=== PATIENT | female | born 1995 | race American Indian/Alaskan Native ===

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

== ENCOUNTER 2017-03-22 19:56 | Emergency (ER) | payer MEDICAID ==
[2017-03-22 20:42] VITALS: BP 129/76
[2017-03-22] MEDS ORDERED: Tetracaine HCl/PF 0.5% 4 ML Bottle EYELF ONE (21:39)
[2017-03-22] MEDS ORDERED: Fluorescein 1 MG Ophth Strip EYELF ONE (21:39)
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
== END 2017-03-23 01:07 ==
LOC: DL.ED 19:56
DX: S05.32XA Ocular laceration without prolapse or loss of intraocular tissue, left eye, initial encounter (principal); H11.32 Conjunctival hemorrhage, left eye; F17.210 Nicotine dependence, cigarettes, uncomplicated; Z88.6 Allergy status to analgesic agent; X95.8XXA Assault by other firearm discharge, initial encounter
CPT/HCPCS: 70480; 99285; A9270

== ENCOUNTER 2017-05-05 19:52 | Emergency (ER) | payer MEDICAID ==
[2017-05-05 20:08] VITALS: BP 124/88
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
[2017-05-05] MEDS ORDERED: Tetracaine HCl/PF 0.5% 4 ML Bottle EYELF ONE (20:52)
[2017-05-05] MEDS ORDERED: Fluorescein 1 MG Ophth Strip EYELF ONE (20:52)
== END 2017-05-05 22:13 | disposition home or self-care (01) ==
LOC: DL.ED 19:52
DX: S05.0 Injury of conjunctiva and corneal abrasion without foreign body (principal); W34.00XS Accidental discharge from unspecified firearms or gun, sequela; F17.210 Nicotine dependence, cigarettes, uncomplicated; Z88.6 Allergy status to analgesic agent
CPT/HCPCS: 99283; A9270

== ENCOUNTER 2017-05-24 18:19 | Emergency (ER) | payer MEDICAID | END 2017-05-24 19:15 | disposition left against medical advice (07) | LOC: DL.ED 18:19 | DX: Z53.21 Procedure and treatment not carried out due to patient leaving prior to being seen by health care provider (principal) ==

== ENCOUNTER 2017-08-25 20:13 | Emergency (ER) | payer MEDICAID ==
[2017-08-25 20:27] VITALS: BP 129/68
== END 2017-08-25 20:39 | disposition left against medical advice (07) ==
LOC: DL.ED 20:13
DX: Z53.21 Procedure and treatment not carried out due to patient leaving prior to being seen by health care provider (principal)

== ENCOUNTER 2017-09-10 09:35 | Emergency (ER) | payer MEDICAID | END 2017-09-10 12:26 | disposition left against medical advice (07) | LOC: DL.ED 09:35 | DX: Z53.21 Procedure and treatment not carried out due to patient leaving prior to being seen by health care provider (principal) ==

== ENCOUNTER 2019-01-13 06:58 | Emergency (ER) | payer MEDICAID ==
[2019-01-13 07:10] VITALS: BP 129/83; PULSE 75
[2019-01-13] MEDS ORDERED: Ketorolac 30 MG/ML SDV IM ONE (08:53)
[2019-01-13] MEDS ORDERED: Acetaminophen 500 MG Tab PO ONE (09:41)
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
== END 2019-01-13 10:20 | disposition home or self-care (01) ==
LOC: DL.ED 06:58
DX: O20.0 Threatened abortion (principal); O99.331 Smoking (tobacco) complicating pregnancy, first trimester; F17.210 Nicotine dependence, cigarettes, uncomplicated; Z88.6 Allergy status to analgesic agent; Z3A.09 9 weeks gestation of pregnancy
CPT/HCPCS: 80305; 81025; 96372; 99283; A9270; J1885

== ENCOUNTER 2019-01-14 04:33 | Emergency (ER) | payer MEDICAID ==
[2019-01-14 04:46] VITALS: BP 98/71; PULSE 146
[2019-01-14] MEDS ORDERED: Sodium Chloride 0.9% 1,000 ML IV ONE (05:00)
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
[2019-01-14 05:24] LABS: ANION GAP 19.1; CHLORIDE,CL 103 mmol/L (101-111); SODIUM,NA 136 mmol/L (135-145)
[2019-01-14] MEDS ORDERED: Acetaminophen/HYDROcodone 325-10 MG Tab PO ONE (06:25)
[2019-01-14] MEDS ORDERED: metroNIDAZOLE 250 MG Tab PO ONE (06:25)
[2019-01-14] MEDS ORDERED: Doxycycline 100 MG Cap PO ONE (06:25)
--- NOTE | 2019-01-14 15:04 | OR ---
DATE: 01/14/2019 LOCATION: [facility] Emergency Room, [facility]. PREPROCEDURE DIAGNOSIS: This is an individual who presented to the emergency room in the midst of a miscarriage. PROCEDURE: Removal of all products of conception. PROCEDURE IN DETAIL: The patient had been seen that evening in the emergency room with an inevitable AB. The products of conception were hanging from the vagina. The ER doctor did try to remove them, but was having difficulty, therefore, called me. I did place the patient in the stirrups. After consent, I did use a ring forceps and teased out all that was retrieved from the vagina, then placed a speculum, and the gestational sac was evident right there. I did grasp that with the ring forceps and the remaining products of conception were removed without any difficulty and all sent to pathology. After removing that, the bleeding did slow significantly. The uterus was mildly tender afterwards, therefore, I did have the emergency room doctor discharge her with doxycycline and Flagyl for 1 week, and I will follow up on these products of conception. This was the patient's first and has ended in a miscarriage. [facility] /[id number] SHERMAN
== END 2019-01-14 06:41 | disposition home or self-care (01) ==
LOC: DL.ED 04:33
DX: O03.9 Complete or unspecified spontaneous abortion without complication (principal); F17.210 Nicotine dependence, cigarettes, uncomplicated; Z88.6 Allergy status to analgesic agent
CPT/HCPCS: 36415; 80053; 80320; 84702; 85025; 86140; 96360; 99284; A9270; J7030; G0480

== ENCOUNTER 2019-05-06 11:06 | Emergency (ER) | payer MEDICAID ==
[2019-05-06 11:16] VITALS: BP 113/55; PULSE 84
[2019-05-06 12:08] LABS: ANION GAP 12.1; CHLORIDE,CL 105 mmol/L (101-111); SODIUM,NA 136 mmol/L (135-145)
[2019-05-06] MEDS ORDERED: Bisacodyl 10 MG Supp RECTAL ONE (12:48)
[2019-05-06] MEDS ORDERED: Lactulose Soln 10 GM/15 ML 30 ML UD Cup PO ONE (12:48)
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
== END 2019-05-06 13:01 | disposition home or self-care (01) ==
LOC: DL.ED 11:06
DX: K59.09 Other constipation (principal); F50.89 Other specified eating disorder; F17.210 Nicotine dependence, cigarettes, uncomplicated; Z88.6 Allergy status to analgesic agent
CPT/HCPCS: 36415; 74019; 80053; 81001; 81025; 85025; 87086; 87088; 87186; 99284; A9270

== ENCOUNTER 2019-11-04 12:37 | Emergency (ER) | payer SELFPAY ==
[2019-11-04 13:02] VITALS: BP 108/74; PULSE 90
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
[2019-11-04 14:02] LABS: ANION GAP 11.5 mEq/L (7-13)
== END 2019-11-04 14:42 | disposition left against medical advice (07) ==
LOC: DL.ED 12:37
DX: O20.9 Hemorrhage in early pregnancy, unspecified (principal); O99.331 Smoking (tobacco) complicating pregnancy, first trimester; F17.210 Nicotine dependence, cigarettes, uncomplicated; Z88.6 Allergy status to analgesic agent; Z3A.01 Less than 8 weeks gestation of pregnancy
CPT/HCPCS: 36415; 80053; 81001; 81025; 84702; 85025; 87086; 87088; 87186; 99284

== ENCOUNTER 2019-12-15 23:50 | Emergency (ER) | payer SELFPAY ==
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
[2019-12-16] MEDS ORDERED: Ondansetron 4 MG/2 ML SDV IVPUSH ONE
[2019-12-16] MEDS ORDERED: Sodium Chloride 0.9% 1,000 ML IV ONE
[2019-12-16 00:17] VITALS: BP 112/89; PULSE 88
[2019-12-16 00:22] LABS: ANION GAP 13.6 mEq/L (7-13); CHLORIDE,CL 99 mmol/L (98-107); SODIUM,NA 137 mmol/L (136-145)
[2019-12-16] MEDS ORDERED: metroNIDAZOLE 250 MG Tab PO ONE (01:25)
[2019-12-16] MEDS ORDERED: Sulfamethoxazole/Trimethoprim 800-160 MG Tab PO ONE (01:25)
== END 2019-12-16 01:35 | disposition home or self-care (01) ==
LOC: DL.ED 23:50
DX: A59.9 Trichomoniasis, unspecified (principal); N30.00 Acute cystitis without hematuria; Z88.6 Allergy status to analgesic agent
CPT/HCPCS: 36415; 80053; 80305; 81001; 81025; 82150; 83690; 85025; 96374; 99284; A9270; J2405; J7030

== ENCOUNTER 2020-05-23 22:52 | Emergency (ER) | payer MEDICAID | END 2020-05-24 00:01 | disposition left against medical advice (07) | LOC: DL.ED 22:52 | DX: Z53.21 Procedure and treatment not carried out due to patient leaving prior to being seen by health care provider (principal) ==

== ENCOUNTER 2020-05-25 22:47 | Emergency (ER) | payer MEDICAID | END 2020-05-25 23:25 | disposition left against medical advice (07) | LOC: DL.ED 22:47 | DX: Z53.21 Procedure and treatment not carried out due to patient leaving prior to being seen by health care provider (principal) ==

== ENCOUNTER 2020-05-26 07:36 | Emergency (ER) | payer MEDICAID ==
[2020-05-26 07:52] VITALS: BP 128/88; PULSE 111
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
[2020-05-26] MEDS: Lidocaine 1% 30 ML SDV INJECT ONE (08:06)
== END 2020-05-26 08:27 | disposition home or self-care (01) ==
LOC: DL.ED 07:36
DX: K03.81 Cracked tooth (principal); K02.9 Dental caries, unspecified; Z88.6 Allergy status to analgesic agent
CPT/HCPCS: 64400; 99282; J2001

== ENCOUNTER 2021-01-19 15:30 | Inpatient (IN) | payer MEDICAID ==
[2021-01-19] MEDS ORDERED: Labetalol 20 MG/4 ML Syringe IVPUSH ONE ×2 (16:13→16:15)
[2021-01-19] MEDS ORDERED: Magnesium Sulfate/Water 4 GM in Premix Bag 1 BAG IV ONE (16:15)
[2021-01-19] MEDS: Magnesium Sulfate/Water 20 GM/500 ML BAG IV SCH (17:06)
[2021-01-19 17:15] LABS: AMPHETAMINES,URINE POSITIVE (NEGATIVE); BARBITURATES,URINE NEGATIVE (NEGATIVE); BENZODIAZEPINE,URINE NEGATIVE (NEGATIVE); MDMA (ECSTASY), URINE NEGATIVE (NEGATIVE); METHADONE,URINE NEGATIVE (NEGATIVE); METHAMPHETAMINES,URINE POSITIVE (NEGATIVE); OPIATES,URINE NEGATIVE (NEGATIVE); OXYCODONE,URINE NEGATIVE (NEGATIVE); PHENCYCLIDINE,URINE NEGATIVE (NEGATIVE); TCA,URINE NEGATIVE (NEGATIVE)
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
[2021-01-19] MEDS ORDERED: Misoprostol 25 MCG (1/4 of 100 MCG) Tab VAG ONE (18:49)
[2021-01-19] MEDS ORDERED: Promethazine 25 MG/ML SDV IM PRN (18:51)
[2021-01-19] MEDS ORDERED: Naloxone 2 MG/2 ML Syringe IVPUSH PRN (18:51)
[2021-01-19] MEDS ORDERED: Ondansetron 4 MG/2 ML SDV IVPUSH PRN (18:51)
[2021-01-19] MEDS ORDERED: ePHEDrine 50 MG/ML SDV IVPUSH PRN (18:51)
[2021-01-19] MEDS ORDERED: Sodium Chloride 0.9% 10 ML Syringe FLUSH PRN (18:53)
[2021-01-19] MEDS ORDERED: Acetaminophen 325 MG Tab PO PRN (18:53)
[2021-01-19] MEDS ORDERED: Lactated Ringers 500 ML IV SCH ×2 (19:00)
[2021-01-19] MEDS: Misoprostol 25 MCG (1/4 of 100 MCG) Tab VAG PRN (23:45)
[2021-01-20] MEDS: Labetalol 20 MG/4 ML Syringe IV PRN ×3 (00:40→05:36)
[2021-01-20] MEDS: Lactated Ringers 1,000 ML IV SCH ×3 (00:43→15:58)
[2021-01-20] MEDS: Magnesium Sulfate/Water 20 GM/500 ML BAG IV SCH ×3 (02:21→20:56)
[2021-01-20] MEDS: Misoprostol 25 MCG (1/4 of 100 MCG) Tab VAG PRN (03:50)
[2021-01-20] MEDS ORDERED: hydrALAZINE 20 MG/ML SDV ONE (06:20)
[2021-01-20] MEDS ORDERED: hydrALAZINE 20 MG/ML SDV IVPUSH ONE (06:23)
[2021-01-20] MEDS ORDERED: Labetalol 20 MG/4 ML Syringe IVPUSH ONE (07:09)
--- NOTE | 2021-01-20 07:21 | PCM.PN ---
<Rhianna Montenegro - Last Filed: 01/20/21 08:30> - General Info Date of Service: 01/20/21 Admission Dx/Problem (Free Text): Patient admitted 01/19/21 from clinic for elevated blood pressures and limited care. Diagnosed with pre-eclampsia and started on magnesium sulfate. She has required multiple escalating doses of labetalol and 1 dose hydralazine. Currently BP management with labetalol 200mg TID, labetalol 40mg x 1, magnesium sulfate. Patient denies chest pain, shortness of breath or headache. No hyperreflexia. Patient is starting to feel her contractions more frequently. No leakage of fluid or gush of blood from vaginal area. Good movement. Functional Status: Reports: Pain Controlled, Ambulating, Urinating - Review of Systems General: Reports: No Symptoms HEENT: Reports: No Symptoms Pulmonary: Reports: No Symptoms Cardiovascular: Reports: No Symptoms Gastrointestinal: Reports: No Symptoms Genitourinary: Reports: No Symptoms Musculoskeletal: Reports: No Symptoms Skin: Reports: No Symptoms Neurological: Reports: No Symptoms Psychiatric: Reports: No Symptoms - Patient Data Vitals - Most Recent: Last Vital Signs Temp 97.6 F 01/20/21 07:00 Pulse 83 01/20/21 07:00 Resp 16 01/20/21 07:00 BP 153/104 H 01/20/21 07:00 Pulse Ox Weight - Most Recent: 84.822 kg I&O - Last 24 Hours: Intake & Output 01/19/21 01/20/21 01/20/21 22:59 06:59 14:59 Output Total 200 1200 Balance -200 -1200 Lab Results Last 24 Hours: Laboratory Results - last 24 hr 01/19/21 01/19/21 01/19/21 Range/Units 16:15 16:25 16:25 WBC 8.4 (5.0-10.0) 10^3/uL RBC 4.55 (4.2-5.4) 10^6/uL Hgb 9.9 L (12.0-16.0) g/dL Hct 31.2 L (37.0-47.0) % MCV 68.6 L D (80-100) fL MCH 21.8 L (27.0-34.0) pg MCHC 31.7 L (33.0-35.0) g/dL Plt Count 367 D (150-450) 10^3/uL BUN 16 (7-18) mg/dL Creatinine 0.75 (0.55-1.02) mg/dL Est Cr Clr Drug Dosing TNP Estimated GFR (MDRD) > 60 Uric Acid 3.7 (2.6-6.0) mg/dL Magnesium (1.8-2.4) mg/dL AST 36 (15-37) U/L ALT 43 (14-59) U/L Lactate Dehydrogenase 190 (81-234) U/L Urine Color (YELLOW) Urine Appearance (CLEAR) Urine pH (5.0-9.0) Ur Specific [place] (1.005-1.030) Urine Protein (NEGATIVE) Urine Glucose (UA) (NEGATIVE) Urine Ketones (NEGATIVE) Urine Occult Blood (NEGATIVE) Urine Nitrite (NEGATIVE) Urine Bilirubin (NEGATIVE) Urine Urobilinogen (0.2-1.0) mg/dL Ur Leukocyte Esterase (NEGATIVE) Ur Random Creatinine (No establ ref range) mg/dL U Random Total Protein (0.0-11.9) mg/dL Protein/Creatinin Ratio Urine Opiates Screen (NEGATIVE) Ur Oxycodone Screen (NEGATIVE) Urine Methadone Screen (NEGATIVE) Ur Barbiturates Screen (NEGATIVE) U Tricyclic Antidepress (NEGATIVE) Ur Phencyclidine Scrn (NEGATIVE) Ur Amphetamine Screen (NEGATIVE) U Methamphetamines Scrn (NEGATIVE) Urine MDMA Screen (NEGATIVE) U Benzodiazepines Scrn (NEGATIVE) Urine Cocaine Screen (NEGATIVE) U Marijuana (THC) Screen (NEGATIVE) HIV-1 Antibody (NONREACTIVE) HIV-2 Antibody (NONREACTIVE) HIV P24 Antigen (NONREACTIVE) SARS-CoV-2 RNA (YARED) Positive H (NEGATIVE) Blood Type Gel Antibody Screen 01/19/21 01/19/21 01/19/21 Range/Units 16:25 16:25 17:00 WBC (5.0-10.0) 10^3/uL RBC (4.2-5.4) 10^6/uL Hgb (12.0-16.0) g/dL Hct (37.0-47.0) % MCV (80-100) fL MCH (27.0-34.0) pg MCHC (33.0-35.0) g/dL Plt Count (150-450) 10^3/uL BUN (7-18) mg/dL Creatinine (0.55-1.02) mg/dL Est Cr Clr Drug Dosing Estimated GFR (MDRD) Uric Acid (2.6-6.0) mg/dL Magnesium (1.8-2.4) mg/dL AST (15-37) U/L ALT (14-59) U/L Lactate Dehydrogenase (81-234) U/L Urine Color Dark yellow (YELLOW) Urine Appearance Turbid (CLEAR) Urine pH 6.5 (5.0-9.0) Ur Specific [place] >= 1.030 (1.005-1.030) Urine Protein >=300 H (NEGATIVE) Urine Glucose (UA) Negative (NEGATIVE) Urine Ketones Negative (NEGATIVE) Urine Occult Blood Large H (NEGATIVE) Urine Nitrite Negative (NEGATIVE) Urine Bilirubin Negative (NEGATIVE) Urine Urobilinogen 1.0 (0.2-1.0) mg/dL Ur Leukocyte Esterase Trace H (NEGATIVE) Ur Random Creatinine (No establ ref range) mg/dL U Random Total Protein (0.0-11.9) mg/dL Protein/Creatinin Ratio Urine Opiates Screen (NEGATIVE) Ur Oxycodone Screen (NEGATIVE) Urine Methadone Screen (NEGATIVE) Ur Barbiturates Screen (NEGATIVE) U Tricyclic Antidepress (NEGATIVE) Ur Phencyclidine Scrn (NEGATIVE) Ur Amphetamine Screen (NEGATIVE) U Methamphetamines Scrn (NEGATIVE) Urine MDMA Screen (NEGATIVE) U Benzodiazepines Scrn (NEGATIVE) Urine Cocaine Screen (NEGATIVE) U Marijuana (THC) Screen (NEGATIVE) HIV-1 Antibody Non-reactive (NONREACTIVE) HIV-2 Antibody Non-reactive (NONREACTIVE) HIV P24 Antigen Non-reactive (NONREACTIVE) SARS-CoV-2 RNA (YARED) (NEGATIVE) Blood Type O POSITIVE Gel Antibody Screen Negative 01/19/21 01/19/21 01/19/21 Range/Units 17:00 17:00 23:33 WBC (5.0-10.0) 10^3/uL RBC (4.2-5.4) 10^6/uL Hgb (12.0-16.0) g/dL Hct (37.0-47.0) % MCV (80-100) fL MCH (27.0-34.0) pg MCHC (33.0-35.0) g/dL Plt Count (150-450) 10^3/uL BUN (7-18) mg/dL Creatinine (0.55-1.02) mg/dL Est Cr Clr Drug Dosing Estimated GFR (MDRD) Uric Acid (2.6-6.0) mg/dL Magnesium 5.5 H (1.8-2.4) mg/dL AST (15-37) U/L ALT (14-59) U/L Lactate Dehydrogenase (81-234) U/L Urine Color (YELLOW) Urine Appearance (CLEAR) Urine pH (5.0-9.0) Ur Specific [place] (1.005-1.030) Urine Protein (NEGATIVE) Urine Glucose (UA) (NEGATIVE) Urine Ketones (NEGATIVE) Urine Occult Blood (NEGATIVE) Urine Nitrite (NEGATIVE) Urine Bilirubin (NEGATIVE) Urine Urobilinogen (0.2-1.0) mg/dL Ur Leukocyte Esterase (NEGATIVE) Ur Random Creatinine 145.97 (No establ ref range) mg/dL U Random Total Protein 710.3 H (0.0-11.9) mg/dL Protein/Creatinin Ratio TNP Urine Opiates Screen Negative (NEGATIVE) Ur Oxycodone Screen Negative (NEGATIVE) Urine Methadone Screen Negative (NEGATIVE) Ur Barbiturates Screen Negative (NEGATIVE) U Tricyclic Antidepress Negative (NEGATIVE) Ur Phencyclidine Scrn Negative (NEGATIVE) Ur Amphetamine Screen Positive H (NEGATIVE) U Methamphetamines Scrn Positive H (NEGATIVE) Urine MDMA Screen Negative (NEGATIVE) U Benzodiazepines Scrn Negative (NEGATIVE) Urine Cocaine Screen Negative (NEGATIVE) U Marijuana (THC) Screen Positive H (NEGATIVE) HIV-1 Antibody (NONREACTIVE) HIV-2 Antibody (NONREACTIVE) HIV P24 Antigen (NONREACTIVE) SARS-CoV-2 RNA (YARED) (NEGATIVE) Blood Type Gel Antibody Screen 01/20/21 Range/Units 05:30 WBC (5.0-10.0) 10^3/uL RBC (4.2-5.4) 10^6/uL Hgb (12.0-16.0) g/dL Hct (37.0-47.0) % MCV (80-100) fL MCH (27.0-34.0) pg MCHC (33.0-35.0) g/dL Plt Count (150-450) 10^3/uL BUN (7-18) mg/dL Creatinine (0.55-1.02) mg/dL Est Cr Clr Drug Dosing Estimated GFR (MDRD) Uric Acid (2.6-6.0) mg/dL Magnesium 6.5 H (1.8-2.4) mg/dL AST (15-37) U/L ALT (14-59) U/L Lactate Dehydrogenase (81-234) U/L Urine Color (YELLOW) Urine Appearance (CLEAR) Urine pH (5.0-9.0) Ur Specific [place] (1.005-1.030) Urine Protein (NEGATIVE) Urine Glucose (UA) (NEGATIVE) Urine Ketones (NEGATIVE) Urine Occult Blood (NEGATIVE) Urine Nitrite (NEGATIVE) Urine Bilirubin (NEGATIVE) Urine Urobilinogen (0.2-1.0) mg/dL Ur Leukocyte Esterase (NEGATIVE) Ur Random Creatinine (No establ ref range) mg/dL U Random Total Protein (0.0-11.9) mg/dL Protein/Creatinin Ratio Urine Opiates Screen (NEGATIVE) Ur Oxycodone Screen (NEGATIVE) Urine Methadone Screen (NEGATIVE) Ur Barbiturates Screen (NEGATIVE) U Tricyclic Antidepress (NEGATIVE) Ur Phencyclidine Scrn (NEGATIVE) Ur Amphetamine Screen (NEGATIVE) U Methamphetamines Scrn (NEGATIVE) Urine MDMA Screen (NEGATIVE) U Benzodiazepines Scrn (NEGATIVE) Urine Cocaine Screen (NEGATIVE) U Marijuana (THC) Screen (NEGATIVE) HIV-1 Antibody (NONREACTIVE) HIV-2 Antibody (NONREACTIVE) HIV P24 Antigen (NONREACTIVE) SARS-CoV-2 RNA (YARED) (NEGATIVE) Blood Type Gel Antibody Screen Med Orders - Current: Current Medications Acetaminophen (Acetaminophen 325 Mg Tab) 650 mg PO Q4H PRN PRN Reason: Pain/Fever Last Admin: 01/20/21 00:43 Dose: 650 mg Documented by: Ephedrine Sulfate (Ephedrine 50 Mg/Ml Sdv) 5 mg IVPUSH Q5M PRN PRN Reason: See Label Comments Magnesium Sulfate (Magnesium Sulfate In Water 20 Gm/500 Ml) 20 gm in 500 mls @ 50 mls/hr IV ASDIRECTED [facility] Last Admin: 01/20/21 02:21 Dose: 50 mls/hr Documented by: Lactated Ringer's (Ringers, Lactated) 500 mls @ 999 mls/hr IV SEECOMMENT [facility] Lactated Ringer's (Ringers, Lactated) 500 mls @ 999 mls/hr IV .BOLUS JEMAL Lactated Ringer's (Ringers, Lactated) 1,000 mls @ 125 mls/hr IV ASDIRECTED JEMAL Last Admin: 01/20/21 00:43 Dose: 125 mls/hr Documented by: Labetalol HCl (Labetalol 20 Mg/4 Ml Syringe) 0 mg IV ASDIRECTED PRN PRN Reason: HIGH BLOOD PRESSURE Last Admin: 01/20/21 05:36 Dose: 20 mg Documented by: Labetalol HCl (Labetalol 20 Mg/4 Ml Syringe) 40 mg IVPUSH ONETIME ONE Stop: 01/20/21 07:10 Labetalol HCl (Labetalol 100 Mg Tab) 200 mg PO TID JEMAL Misoprostol (Misoprostol 25 Mcg (1/4 Of 100 Mcg) Tab) 25 mcg VAG Q4H PRN PRN Reason: Other Last Admin: 01/20/21 03:50 Dose: 25 mcg Documented by: Naloxone HCl (Naloxone 2 Mg/2 Ml Syringe) 0.1 mg IVPUSH SEECOMMENT PRN PRN Reason: Respiratory Depression Ondansetron HCl (Ondansetron 4 Mg/2 Ml Sdv) 4 mg IVPUSH Q4H PRN PRN Reason: Nausea/Vomiting Promethazine HCl (Promethazine 25 Mg/Ml Sdv) 12.5 mg IM Q6H PRN PRN Reason: Nausea/Vomiting Sodium Chloride (Sodium Chloride 0.9% 10 Ml Syringe) 10 ml FLUSH ASDIRECTED PRN PRN Reason: Keep Vein Open Discontinued Medications Hydralazine HCl (Hydralazine 20 Mg/Ml Sdv) Confirm Administered Dose 20 mg .ROUTE .STK-MED ONE Stop: 01/20/21 06:21 Last Admin: 01/20/21 06:42 Dose: Not Given Documented by: Hydralazine HCl (Hydralazine 20 Mg/Ml Sdv) 5 mg IVPUSH ONETIME ONE Stop: 01/20/21 06:24 Last Admin: 01/20/21 06:25 Dose: 5 mg Documented by: Magnesium Sulfate 4 gm/ Premix 100 mls @ 300 mls/hr IV BOLUS ONE Stop: 01/19/21 16:34 Last Admin: 01/19/21 16:46 Dose: 300 mls/hr Documented by: Labetalol HCl (Labetalol 20 Mg/4 Ml Syringe) 10 mg IVPUSH ONETIME ONE Stop: 01/19/21 16:14 Last Admin: 01/19/21 17:24 Dose: Not Given Documented by: Labetalol HCl (Labetalol 20 Mg/4 Ml Syringe) 10 mg IVPUSH ONETIME ONE Stop: 01/19/21 16:16 Last Admin: 01/19/21 16:37 Dose: 10 mg Documented by: Misoprostol (Misoprostol 25 Mcg (1/4 Of 100 Mcg) Tab) 25 mcg VAG ONETIME ONE Stop: 01/19/21 18:50 Last Admin: 01/19/21 19:47 Dose: 25 mcg Documented by: - Exam General: Alert, Oriented Neck: Supple Lungs: Normal Respiratory Effort (Female) Exam: Normal External Exam, Heart Tones, Vaginal Bleeding Back Exam: Normal Inspection, Full Range of Motion Extremities: Normal Inspection, Normal Range of Motion Skin: Warm, Dry, Intact Neurological: No New Focal Deficit Psy/Mental Status: Normal Affect, Normal Mood - Patient Data Lab Results Last 24 hrs: Laboratory Results - last 24 hr 01/19/21 01/19/21 01/19/21 Range/Units 16:15 16:25 16:25 WBC 8.4 (5.0-10.0) 10^3/uL RBC 4.55 (4.2-5.4) 10^6/uL Hgb 9.9 L (12.0-16.0) g/dL Hct 31.2 L (37.0-47.0) % MCV 68.6 L D (80-100) fL MCH 21.8 L (27.0-34.0) pg MCHC 31.7 L (33.0-35.0) g/dL Plt Count 367 D (150-450) 10^3/uL BUN 16 (7-18) mg/dL Creatinine 0.75 (0.55-1.02) mg/dL Est Cr Clr Drug Dosing TNP Estimated GFR (MDRD) > 60 Uric Acid 3.7 (2.6-6.0) mg/dL Magnesium (1.8-2.4) mg/dL AST 36 (15-37) U/L ALT 43 (14-59) U/L Lactate Dehydrogenase 190 (81-234) U/L Urine Color (YELLOW) Urine Appearance (CLEAR) Urine pH (5.0-9.0) Ur Specific [place] (1.005-1.030) Urine Protein (NEGATIVE) Urine Glucose (UA) (NEGATIVE) Urine Ketones (NEGATIVE) Urine Occult Blood (NEGATIVE) Urine Nitrite (NEGATIVE) Urine Bilirubin (NEGATIVE) Urine Urobilinogen (0.2-1.0) mg/dL Ur Leukocyte Esterase (NEGATIVE) Ur Random Creatinine (No establ ref range) mg/dL U Random Total Protein (0.0-11.9) mg/dL Protein/Creatinin Ratio Urine Opiates Screen (NEGATIVE) Ur Oxycodone Screen (NEGATIVE) Urine Methadone Screen (NEGATIVE) Ur Barbiturates Screen (NEGATIVE) U Tricyclic Antidepress (NEGATIVE) Ur Phencyclidine Scrn (NEGATIVE) Ur Amphetamine Screen (NEGATIVE) U Methamphetamines Scrn (NEGATIVE) Urine MDMA Screen (NEGATIVE) U Benzodiazepines Scrn (NEGATIVE) Urine Cocaine Screen (NEGATIVE) U Marijuana (THC) Screen (NEGATIVE) HIV-1 Antibody (NONREACTIVE) HIV-2 Antibody (NONREACTIVE) HIV P24 Antigen (NONREACTIVE) SARS-CoV-2 RNA (YARED) Positive H (NEGATIVE) Blood Type Gel Antibody Screen 01/19/21 01/19/21 01/19/21 Range/Units 16:25 16:25 17:00 WBC (5.0-10.0) 10^3/uL RBC (4.2-5.4) 10^6/uL Hgb (12.0-16.0) g/dL Hct (37.0-47.0) % MCV (80-100) fL MCH (27.0-34.0) pg MCHC (33.0-35.0) g/dL Plt Count (150-450) 10^3/uL BUN (7-18) mg/dL Creatinine (0.55-1.02) mg/dL Est Cr Clr Drug Dosing Estimated GFR (MDRD) Uric Acid (2.6-6.0) mg/dL Magnesium (1.8-2.4) mg/dL AST (15-37) U/L ALT (14-59) U/L Lactate Dehydrogenase (81-234) U/L Urine Color Dark yellow (YELLOW) Urine Appearance Turbid (CLEAR) Urine pH 6.5 (5.0-9.0) Ur Specific [place] >= 1.030 (1.005-1.030) Urine Protein >=300 H (NEGATIVE) Urine Glucose (UA) Negative (NEGATIVE) Urine Ketones Negative (NEGATIVE) Urine Occult Blood Large H (NEGATIVE) Urine Nitrite Negative (NEGATIVE) Urine Bilirubin Negative (NEGATIVE) Urine Urobilinogen 1.0 (0.2-1.0) mg/dL Ur Leukocyte Esterase Trace H (NEGATIVE) Ur Random Creatinine (No establ ref range) mg/dL U Random Total Protein (0.0-11.9) mg/dL Protein/Creatinin Ratio Urine Opiates Screen (NEGATIVE) Ur Oxycodone Screen (NEGATIVE) Urine Methadone Screen (NEGATIVE) Ur Barbiturates Screen (NEGATIVE) U Tricyclic Antidepress (NEGATIVE) Ur Phencyclidine Scrn (NEGATIVE) Ur Amphetamine Screen (NEGATIVE) U Methamphetamines Scrn (NEGATIVE) Urine MDMA Screen (NEGATIVE) U Benzodiazepines Scrn (NEGATIVE) Urine Cocaine Screen (NEGATIVE) U Marijuana (THC) Screen (NEGATIVE) HIV-1 Antibody Non-reactive (NONREACTIVE) HIV-2 Antibody Non-reactive (NONREACTIVE) HIV P24 Antigen Non-reactive (NONREACTIVE) SARS-CoV-2 RNA (YARED) (NEGATIVE) Blood Type O POSITIVE Gel Antibody Screen Negative 01/19/21 01/19/21 01/19/21 Range/Units 17:00 17:00 23:33 WBC (5.0-10.0) 10^3/uL RBC (4.2-5.4) 10^6/uL Hgb (12.0-16.0) g/dL Hct (37.0-47.0) % MCV (80-100) fL MCH (27.0-34.0) pg MCHC (33.0-35.0) g/dL Plt Count (150-450) 10^3/uL BUN (7-18) mg/dL Creatinine (0.55-1.02) mg/dL Est Cr Clr Drug Dosing Estimated GFR (MDRD) Uric Acid (2.6-6.0) mg/dL Magnesium 5.5 H (1.8-2.4) mg/dL AST (15-37) U/L ALT (14-59) U/L Lactate Dehydrogenase (81-234) U/L Urine Color (YELLOW) Urine Appearance (CLEAR) Urine pH (5.0-9.0) Ur Specific [place] (1.005-1.030) Urine Protein (NEGATIVE) Urine Glucose (UA) (NEGATIVE) Urine Ketones (NEGATIVE) Urine Occult Blood (NEGATIVE) Urine Nitrite (NEGATIVE) Urine Bilirubin (NEGATIVE) Urine Urobilinogen (0.2-1.0) mg/dL Ur Leukocyte Esterase (NEGATIVE) Ur Random Creatinine 145.97 (No establ ref range) mg/dL U Random Total Protein 710.3 H (0.0-11.9) mg/dL Protein/Creatinin Ratio TNP Urine Opiates Screen Negative (NEGATIVE) Ur Oxycodone Screen Negative (NEGATIVE) Urine Methadone Screen Negative (NEGATIVE) Ur Barbiturates Screen Negative (NEGATIVE) U Tricyclic Antidepress Negative (NEGATIVE) Ur Phencyclidine Scrn Negative (NEGATIVE) Ur Amphetamine Screen Positive H (NEGATIVE) U Methamphetamines Scrn Positive H (NEGATIVE) Urine MDMA Screen Negative (NEGATIVE) U Benzodiazepines Scrn Negative (NEGATIVE) Urine Cocaine Screen Negative (NEGATIVE) U Marijuana (THC) Screen Positive H (NEGATIVE) HIV-1 Antibody (NONREACTIVE) HIV-2 Antibody (NONREACTIVE) HIV P24 Antigen (NONREACTIVE) SARS-CoV-2 RNA (YARED) (NEGATIVE) Blood Type Gel Antibody Screen 01/20/21 Range/Units 05:30 WBC (5.0-10.0) 10^3/uL RBC (4.2-5.4) 10^6/uL Hgb (12.0-16.0) g/dL Hct (37.0-47.0) % MCV (80-100) fL MCH (27.0-34.0) pg MCHC (33.0-35.0) g/dL Plt Count (150-450) 10^3/uL BUN (7-18) mg/dL Creatinine (0.55-1.02) mg/dL Est Cr Clr Drug Dosing Estimated GFR (MDRD) Uric Acid (2.6-6.0) mg/dL Magnesium 6.5 H (1.8-2.4) mg/dL AST (15-37) U/L ALT (14-59) U/L Lactate Dehydrogenase (81-234) U/L Urine Color (YELLOW) Urine Appearance (CLEAR) Urine pH (5.0-9.0) Ur Specific [place] (1.005-1.030) Urine Protein (NEGATIVE) Urine Glucose (UA) (NEGATIVE) Urine Ketones (NEGATIVE) Urine Occult Blood (NEGATIVE) Urine Nitrite (NEGATIVE) Urine Bilirubin (NEGATIVE) Urine Urobilinogen (0.2-1.0) mg/dL Ur Leukocyte Esterase (NEGATIVE) Ur Random Creatinine (No establ ref range) mg/dL U Random Total Protein (0.0-11.9) mg/dL Protein/Creatinin Ratio Urine Opiates Screen (NEGATIVE) Ur Oxycodone Screen (NEGATIVE) Urine Methadone Screen (NEGATIVE) Ur Barbiturates Screen (NEGATIVE) U Tricyclic Antidepress (NEGATIVE) Ur Phencyclidine Scrn (NEGATIVE) Ur Amphetamine Screen (NEGATIVE) U Methamphetamines Scrn (NEGATIVE) Urine MDMA Screen (NEGATIVE) U Benzodiazepines Scrn (NEGATIVE) Urine Cocaine Screen (NEGATIVE) U Marijuana (THC) Screen (NEGATIVE) HIV-1 Antibody (NONREACTIVE) HIV-2 Antibody (NONREACTIVE) HIV P24 Antigen (NONREACTIVE) SARS-CoV-2 RNA (YARED) (NEGATIVE) Blood Type Gel Antibody Screen Result Diagrams: 01/19/21 16:25 01/19/21 16:25 Sepsis Event Note - Evaluation Sepsis Screening Result: No Definite Risk - Focused Exam Vital Signs: Vital Signs Temp Pulse Resp BP 01/20/21 07:00 97.6 F 83 16 153/104 H 01/20/21 06:45 73 16 151/100 H 01/20/21 06:30 73 16 150/102 H 01/20/21 06:15 69 16 155/98 H 01/20/21 06:00 72 16 150/105 H 01/20/21 05:45 80 16 151/100 H 01/20/21 05:30 73 16 156/104 H 01/20/21 05:00 76 16 155/103 H 01/20/21 04:30 85 16 149/96 H 01/20/21 04:00 97.7 F 82 16 139/92 H 01/20/21 03:30 71 16 147/93 H 01/20/21 03:00 75 16 154/100 H 01/20/21 02:30 80 16 147/87 H 01/20/21 02:15 97.3 F 74 16 148/92 H 01/20/21 02:00 75 16 157/100 H 01/20/21 01:30 78 16 184/109 H 01/20/21 01:00 70 16 153/99 H 01/20/21 00:30 76 16 160/103 H 01/20/21 00:00 77 16 151/103 H 01/19/21 23:40 97.3 F 76 16 153/98 H 01/19/21 23:00 77 16 154/102 H 01/19/21 22:30 77 16 155/97 H 01/19/21 22:00 84 16 157/103 H 01/19/21 21:30 73 16 147/91 H 01/19/21 21:00 78 16 154/105 H 01/19/21 20:30 75 16 149/93 H 01/19/21 20:00 71 16 142/90 H 01/19/21 19:45 97.6 F 79 16 137/78 01/19/21 19:30 72 16 144/89 H - Problem List & Annotations (1) Pre-eclampsia affecting , antepartum SNOMED Code(s): 174597888, 750240141 Code(s): O14.90 - UNSPECIFIED PRE-ECLAMPSIA, UNSPECIFIED TRIMESTER Status: Acute Priority: High Current Visit: Yes Onset Date: ~01/19/21 Annotation/Comment:: -Blood pressures >170/100 on admission -PIH labs WNL; Urine P/CR too high to calculate -Magnesium sulfate IV infusing; bolus and maintenance dosing order; monitor for magnesium toxicity -Strict I&Os -Blood pressure control with IV labetalol and hydralazine -Labetalol 10mg IV given without improvement of pressures; will start labetalol 200mg oral TID -Monitor for signs of eclampsia -Induced with misoprostol x 3 doses, now starting oxytocin. -Intrathecal requested by patient. (2) Poor patient attendance of care SNOMED Code(s): 217165777 Code(s): O09.30 - SUPRVSN OF PREG W INSUFFICIENT ANTENAT CARE, UNSP TRIMESTER Status: Acute Current Visit: Yes Annotation/Comment:: -Complete OB labs ordered; noted anemia to 9.9 and O+ blood type -Unable to find documentation of reported visit in [place]; presume no care (3) GBS screening not performed SNOMED Code(s): 144683110 Code(s): KXV3143 - Status: Acute Current Visit: Yes Annotation/Comment:: -Start penicillin given unknown GBS status -Patient denied history of penicillin allergy -Start penicillin now (4) COVID-19 SNOMED Code(s): 203575871 Code(s): U07.1 - COVID-19 Status: Acute Current Visit: Yes Annotation/Comment:: -Currently asymptomatic -Contact and airborne precautions -Monitor for symptoms (5) Drug use affecting , antepartum SNOMED Code(s): 42097496, 224343472 Code(s): O99.320 - DRUG USE COMPLICATING , UNSPECIFIED TRIMESTER Status: Acute Current Visit: Yes Annotation/Comment:: -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 -Monitor for withdrawal -HIV negative - Problem List Review Problem List Initiated/Reviewed/Updated: Yes - My Orders Last 24 Hours: My Active Orders 01/19/21 18:51 Communication Order [RC] PER UNIT ROUTINE Communication Order [RC] PER UNIT ROUTINE Heart Rate [RC] Click to Edit Up With Assistance [RC] ASDIRECTED Verify Patient Consent Obtain [RC] ASDIRECTED Naloxone [Narcan] 0.1 mg IVPUSH SEECOMMENT PRN Ondansetron [Zofran] 4 mg IVPUSH Q4H PRN Promethazine [Phenergan] 12.5 mg IM Q6H PRN ePHEDrine [ePHEDrine sulfate] 5 mg IVPUSH Q5M PRN Blood Pressure [OM.PC] Routine 01/19/21 18:53 Acetaminophen [TylenoL] 650 mg PO Q4H PRN Sodium Chloride 0.9% [Saline Flush] 10 ml FLUSH ASDIRECTED PRN 01/19/21 18:56 Communication Order [RC] ASDIRECTED Communication Order [RC] ASDIRECTED Communication Order [RC] ASDIRECTED Communication Order [RC] ASDIRECTED Communication Order [RC] ASDIRECTED Notify Provider [RC] PRN Notify Provider [RC] STAT Up ad Lucie [RC] PER UNIT ROUTINE Vaginal Exam [RC] PRN Vital Signs [RC] PER UNIT ROUTINE Peripheral IV Insertion Adult [OM.PC] Urgent 01/19/21 18:58 Peripheral IV Care [RC] 06,14,22 01/19/21 19:00 Lactated Ringers [Ringers, Lactated] 500 ml IV .BOLUS Lactated Ringers [Ringers, Lactated] 500 ml IV SEECOMMENT 01/20/21 07:09 Labetalol [Normodyne] 40 mg IVPUSH ONETIME ONE 01/20/21 09:00 Labetalol [Normodyne] 200 mg PO TID <Betty Coppola - Last Filed: 01/21/21 16:43> - Patient Data Vitals - Most Recent: Last Vital Signs Temp 97.8 F 01/21/21 12:00 Pulse 78 01/21/21 12:00 Resp 16 01/21/21 12:00 BP 132/90 01/21/21 12:00 Pulse Ox 99 01/21/21 08:00 I&O - Last 24 Hours: Intake & Output 01/21/21 01/21/21 01/21/21 06:59 14:59 22:59 Output Total 2200 1200 Balance -2200 -1200 Lab Results Last 24 Hours: Laboratory Results - last 24 hr 01/19/21 01/19/21 01/19/21 Range/Units 16:25 16:25 17:00 WBC (5.0-10.0) 10^3/uL RBC (4.2-5.4) 10^6/uL Hgb (12.0-16.0) g/dL Hct (37.0-47.0) % MCV (80-100) fL MCH (27.0-34.0) pg MCHC (33.0-35.0) g/dL Plt Count (150-450) 10^3/uL Magnesium (1.8-2.4) mg/dL RPR Non-reac (Non-Reac) Chlamydia/GC Source Urine C.trachomatis RNA (TMA) Positive H (Negative) N.gonorrhoeae RNA (TMA) Negative (Negative) Rubella Immune Status N/a Rubella IgG Antibody Equivocal IU/mL 01/20/21 01/20/21 01/21/21 Range/Units 17:35 23:33 06:17 WBC 12.4 H (5.0-10.0) 10^3/uL RBC 3.93 L (4.2-5.4) 10^6/uL Hgb 8.5 L (12.0-16.0) g/dL Hct 27.2 L (37.0-47.0) % MCV 69.2 L (80-100) fL MCH 21.6 L (27.0-34.0) pg MCHC 31.3 L (33.0-35.0) g/dL Plt Count 321 (150-450) 10^3/uL Magnesium 7.0 H 7.3 H (1.8-2.4) mg/dL RPR (Non-Reac) Chlamydia/GC Source C.trachomatis RNA (TMA) (Negative) N.gonorrhoeae RNA (TMA) (Negative) Rubella Immune Status Rubella IgG Antibody IU/mL 01/21/21 Range/Units 06:17 WBC (5.0-10.0) 10^3/uL RBC (4.2-5.4) 10^6/uL Hgb (12.0-16.0) g/dL Hct (37.0-47.0) % MCV (80-100) fL MCH (27.0-34.0) pg MCHC (33.0-35.0) g/dL Plt Count (150-450) 10^3/uL Magnesium 7.3 H (1.8-2.4) mg/dL RPR (Non-Reac) Chlamydia/GC Source C.trachomatis RNA (TMA) (Negative) N.gonorrhoeae RNA (TMA) (Negative) Rubella Immune Status Rubella IgG Antibody IU/mL [place] Results Last 24 Hours: Microbiology 01/19/21 18:37 Group B Streptococcus Culture - Preliminary Vaginal/Rectal NEGATIVE STREP GROUP B Med Orders - Current: Current Medications Acetaminophen (Acetaminophen 325 Mg Tab) 650 mg PO Q6H PRN PRN Reason: Mild Pain (1-3) or Fever Carboprost Tromethamine (Carboprost Tromethamine 250 Mcg/1 Ml Amp) 250 mcg IM ASDIRECTED PRN PRN Reason: Excessive vaginal bleeding Diphenhydramine HCl (Diphenhydramine 50 Mg/Ml Sdv) 25 mg IVPUSH Q6H PRN PRN Reason: Itching or Nausea Docusate Sodium (Docusate Sodium 100 Mg Cap) 100 mg PO Q12H PRN PRN Reason: Constipation Last Admin: 01/21/21 09:57 Dose: 100 mg Documented by: Ephedrine Sulfate (Ephedrine 50 Mg/Ml Sdv) 5 mg IVPUSH Q5M PRN PRN Reason: See Label Comments Ferrous Sulfate (Ferrous Sulfate 325 Mg Tab) 325 mg PO BIDMEALS [facility] Magnesium Sulfate (Magnesium Sulfate In Water 20 Gm/500 Ml) 20 gm in 500 mls @ 50 mls/hr IV ASDIRECTED [facility] Last Admin: 01/21/21 07:07 Dose: 50 mls/hr Documented by: Lactated Ringer's (Ringers, Lactated) 500 mls @ 999 mls/hr IV SEECOMMENT [facility] Lactated Ringer's (Ringers, Lactated) 1,000 mls @ 125 mls/hr [facility]RECTED [facility] [facility] Last Admin: 01/20/21 15:58 Dose: 125 mls/hr Documented by: Oxytocin/Sodium Chloride (Pitocin In Ns 30 Unit/500 Ml) 30 unit in 500 mls @ 2 mls/hr IV TITRATE [facility]; Protocol Last Titration: 01/20/21 14:10 Dose: 0 munits/min, 0 mls/hr Documented by: Tranexamic Acid 1,000 mg/ (Sodium Chloride) 110 mls @ 660 mls/hr IV ONETIME PRN PRN Reason: Bleeding Lactated Ringer's (Ringers, Lactated) 1,000 mls @ 500 mls/hr IV .BOLUS [facility] Lidocaine HCl (Lidocaine 1% 30 Ml Sdv) 30 ml INJECT ASDIRECTED PRN PRN Reason: Perineal Repair Methylergonovine Maleate (Methylergonovine 0.2 Mg Tab) 0.2 mg PO ONETIME PRN PRN Reason: Excessive vaginal bleeding Metronidazole (Metronidazole 250 Mg Tab) 500 mg PO Q12HR [facility] Misoprostol (Misoprostol 400 Mcg (4 X 100 Mcg Tab)) 800 mcg RECTAL ASDIRECTED PRN PRN Reason: Hemorrhage Nalbuphine HCl (Nalbuphine 10 Mg/1 Ml Vial) 20 mg IM ONETIME PRN PRN Reason: Pain Naloxone HCl (Naloxone 2 Mg/2 Ml Syringe) 0.1 mg IVPUSH SEECOMMENT PRN PRN Reason: Respiratory Depression Ondansetron HCl (Ondansetron 4 Mg/2 Ml Sdv) 4 mg IVPUSH Q4H PRN PRN Reason: Nausea/Vomiting Oxycodone/Acetaminophen (Acetaminophen/Oxycodone 325-5 Mg Tab) 1 tab PO Q4H PRN PRN Reason: Pain (moderate 4-6) Last Admin: 01/21/21 09:57 Dose: 1 tab Documented by: Oxycodone/Acetaminophen (Acetaminophen/Oxycodone 325-5 Mg Tab) 2 tab PO Q4H PRN PRN Reason: Pain (moderate 4-6) Oxytocin (Oxytocin 10 Units/1 Ml Sdv) 10 unit IM ONETIME PRN PRN Reason: Excessive vaginal bleeding Prenat Multivit/[place]/Iron/Folic Ac ( Multivitamin With Calcium/Folic Acid/Iron Tab) 1 each PO DAILY [facility] Last Admin: 01/21/21 09:07 Dose: 1 each Documented by: Promethazine HCl (Promethazine 25 Mg/Ml Sdv) 12.5 mg IM Q6H PRN PRN Reason: Nausea/Vomiting Simethicone (Simethicone 80 Mg Tab.Chew) 160 mg PO QID [facility] Last Admin: 01/21/21 13:45 Dose: 160 mg Documented by: Sodium Chloride (Sodium Chloride 0.9% 10 Ml Syringe) 10 ml FLUSH ASDIRECTED PRN PRN Reason: Keep Vein Open Discontinued Medications Acetaminophen (Acetaminophen 325 Mg Tab) 650 mg PO Q4H PRN PRN Reason: Pain/Fever Last Admin: 01/20/21 00:43 Dose: 650 mg Documented by: Azithromycin (Azithromycin 250 Mg Tab) 1,000 mg PO ONETIME ONE Stop: 01/21/21 14:58 Citric Acid/Sodium Citrate (Citric Acid/Sodium Citrate Solution 30 Ml Cup) 30 ml PO ONETIME ONE Stop: 01/20/21 09:58 Last Admin: 01/20/21 11:33 Dose: Not Given Documented by: Dexamethasone (Dexamethasone 4 Mg/Ml Sdv) 8 mg IV .STK-MED ONE Stop: 01/20/21 11:01 Ephedrine Sulfate (Ephedrine 50 Mg/Ml Sdv) 25 mg IV .STK-MED ONE Stop: 01/20/21 11:01 Fentanyl (Fentanyl 100 Mcg/2 Ml Sdv) 100 mcg IV .STK-MED ONE Stop: 01/20/21 11:01 Hydralazine HCl (Hydralazine 20 Mg/Ml Sdv) Confirm Administered Dose 20 mg .ROUTE .STK-MED ONE Stop: 01/20/21 06:21 Last Admin: 01/20/21 06:42 Dose: Not Given Documented by: Hydralazine HCl (Hydralazine 20 Mg/Ml Sdv) 5 mg IVPUSH ONETIME ONE Stop: 01/20/21 06:24 Last Admin: 01/20/21 06:25 Dose: 5 mg Documented by: Magnesium Sulfate 4 gm/ Premix 100 mls @ 300 mls/hr IV BOLUS ONE Stop: 01/19/21 16:34 Last Admin: 01/19/21 16:46 Dose: 300 mls/hr Documented by: Lactated Ringer's (Ringers, Lactated) 500 mls @ 999 mls/hr IV .BOLUS [facility] Penicillin G Potassium 3 (millunits/ Sodium Chloride) 100 mls @ 200 mls/hr IV Q4H [facility] Penicillin G Potassium 5 (millunits/ Sodium Chloride) 100 mls @ 200 mls/hr IV ONETIME ONE Stop: 01/20/21 09:29 Last Admin: 01/20/21 09:26 Dose: 200 mls/hr Documented by: Cefazolin Sodium/Dextrose (Ancef 2 Gm/50 Ml) Confirm Administered Dose 50 mls @ as directed .ROUTE .STK-MED ONE Stop: 01/20/21 09:48 Oxytocin/Sodium Chloride (Pitocin In Ns 30 Unit/500 Ml) Confirm Administered Dose 60 unit in 1,000 mls @ as directed .ROUTE .STK-MED ONE Stop: 01/20/21 09:48 Cefazolin Sodium/Dextrose 2 gm (/ Premix) 50 mls @ 100 mls/hr IV ONETIME ONE Stop: 01/20/21 11:29 Last Admin: 01/20/21 10:15 Dose: 100 mls/hr Documented by: Tranexamic Acid 1,000 mg/ (Sodium Chloride) 110 mls @ as directed IV .STK-MED ONE Stop: 01/20/21 11:01 Lactated Ringer's (Ringers, Lactated) 1,000 mls @ as directed IV .STK-MED ONE Stop: 01/20/21 11:01 Oxytocin/Sodium Chloride (Pitocin In Ns 30 Unit/500 Ml) 30 unit in 500 mls @ as directed IV .STK-MED ONE Stop: 01/21/21 12:26 Ketorolac Tromethamine (Ketorolac 30 Mg/Ml Sdv) 15 mg IVPUSH Q6H [facility] Stop: 01/21/21 05:31 Last Admin: 01/21/21 05:49 Dose: 15 mg Documented by: Labetalol HCl (Labetalol 20 Mg/4 Ml Syringe) 10 mg IVPUSH ONETIME ONE Stop: 01/19/21 16:14 Last Admin: 01/19/21 17:24 Dose: Not Given Documented by: Labetalol HCl (Labetalol 20 Mg/4 Ml Syringe) 10 mg IVPUSH ONETIME ONE Stop: 01/19/21 16:16 Last Admin: 01/19/21 16:37 Dose: 10 mg Documented by: Labetalol HCl (Labetalol 20 Mg/4 Ml Syringe) 0 mg IV ASDIRECTED PRN PRN Reason: HIGH BLOOD PRESSURE Last Admin: 01/20/21 05:36 Dose: 20 mg Documented by: Labetalol HCl (Labetalol 20 Mg/4 Ml Syringe) 40 mg IVPUSH ONETIME ONE Stop: 01/20/21 07:10 Last Admin: 01/20/21 07:18 Dose: 40 mg Documented by: Labetalol HCl (Labetalol 100 Mg Tab) 200 mg PO TID [facility] Last Admin: 01/20/21 08:38 Dose: 200 mg Documented by: Labetalol HCl (Labetalol 100 Mg Tab) 200 mg PO TID [facility] Last Admin: 01/21/21 15:10 Dose: Not Given Documented by: Measles/Mumps/Rubella Vaccine Live (Measles, Mumps & Rubella Vaccine 0.5 Ml Sdv) 0.5 ml SUBCUT .ONCE ONE Stop: 01/21/21 09:44 Last Admin: 01/21/21 12:24 Dose: 0.5 ml Documented by: Misoprostol (Misoprostol 25 Mcg (1/4 Of 100 Mcg) Tab) 25 mcg VAG ONETIME ONE Stop: 01/19/21 18:50 Last Admin: 01/19/21 19:47 Dose: 25 mcg Documented by: Misoprostol (Misoprostol 25 Mcg (1/4 Of 100 Mcg) Tab) 25 mcg VAG Q4H PRN PRN Reason: Other Last Admin: 01/20/21 03:50 Dose: 25 mcg Documented by: Morphine Sulfate (Morphine Pf 10 Mg/10 Ml Sdv) 0.2 mg .XX .STK-MED ONE Stop: 01/20/21 11:01 Naloxone HCl (Naloxone 2 Mg/2 Ml Syringe) 0.1 mg IVPUSH SEECOMMENT PRN PRN Reason: Respiratory Depression Ondansetron HCl (Ondansetron 4 Mg/2 Ml Sdv) 4 mg IV .STK-MED ONE Stop: 01/20/21 11:01 - Patient Data Lab Results Last 24 hrs: Laboratory Results - last 24 hr 01/19/21 01/19/21 01/19/21 Range/Units 16:25 16:25 17:00 WBC (5.0-10.0) 10^3/uL RBC (4.2-5.4) 10^6/uL Hgb (12.0-16.0) g/dL Hct (37.0-47.0) % MCV (80-100) fL MCH (27.0-34.0) pg MCHC (33.0-35.0) g/dL Plt Count (150-450) 10^3/uL Magnesium (1.8-2.4) mg/dL RPR Non-reac (Non-Reac) Chlamydia/GC Source Urine C.trachomatis RNA (TMA) Positive H (Negative) N.gonorrhoeae RNA (TMA) Negative (Negative) Rubella Immune Status N/a Rubella IgG Antibody Equivocal IU/mL 01/20/21 01/20/21 01/21/21 Range/Units 17:35 23:33 06:17 WBC 12.4 H (5.0-10.0) 10^3/uL RBC 3.93 L (4.2-5.4) 10^6/uL Hgb 8.5 L (12.0-16.0) g/dL Hct 27.2 L (37.0-47.0) % MCV 69.2 L (80-100) fL MCH 21.6 L (27.0-34.0) pg MCHC 31.3 L (33.0-35.0) g/dL Plt Count 321 (150-450) 10^3/uL Magnesium 7.0 H 7.3 H (1.8-2.4) mg/dL RPR (Non-Reac) Chlamydia/GC Source C.trachomatis RNA (TMA) (Negative) N.gonorrhoeae RNA (TMA) (Negative) Rubella Immune Status Rubella IgG Antibody IU/mL 01/21/21 Range/Units 06:17 WBC (5.0-10.0) 10^3/uL RBC (4.2-5.4) 10^6/uL Hgb (12.0-16.0) g/dL Hct (37.0-47.0) % MCV (80-100) fL MCH (27.0-34.0) pg MCHC (33.0-35.0) g/dL Plt Count (150-450) 10^3/uL Magnesium 7.3 H (1.8-2.4) mg/dL RPR (Non-Reac) Chlamydia/GC Source C.trachomatis RNA (TMA) (Negative) N.gonorrhoeae RNA (TMA) (Negative) Rubella Immune Status Rubella IgG Antibody IU/mL Result Diagrams: 01/21/21 06:17 01/19/21 16:25 [place] Results Last 24 hrs: Microbiology 01/19/21 18:37 Group B Streptococcus Culture - Preliminary Vaginal/Rectal NEGATIVE STREP GROUP B Sepsis Event Note - Focused Exam Vital Signs: Vital Signs Temp Pulse Pulse Resp BP BP BP 01/21/21 12:00 97.8 F 78 16 132/90 01/21/21 11:00 78 128/92 H 01/21/21 10:00 84 138/89 01/21/21 09:07 80 137/89 01/21/21 09:00 82 137/80 01/21/21 08:00 98.5 F 80 18 128/90 01/21/21 07:00 75 16 133/91 H 01/21/21 05:54 70 16 131/87 01/21/21 05:00 68 16 130/89 Pulse Ox 01/21/21 12:00 01/21/21 11:00 01/21/21 10:00 01/21/21 09:07 01/21/21 09:00 01/21/21 08:00 99 01/21/21 07:00 01/21/21 05:54 01/21/21 05:00 - My Orders Last 24 Hours: My Active Orders 01/20/21 Dinner Nothing Per Oral Diet [DIET] 01/21/21 09:00 Vit with Ca/FA/Iron [ Plus Iron] 1 each PO DAILY 01/21/21 18:00 Ferrous Sulfate 325 mg PO BIDMEALS 09/29/21 21:00 metroNIDAZOLE 500 mg PO Q12HR - Plan Plan:: Agree with resident's assessment and plan. Betty Coppola MD
[2021-01-20] MEDS ORDERED: Misoprostol 400 MCG (4 X 100 MCG TAB) RECTAL PRN (08:33)
[2021-01-20] MEDS ORDERED: Tranexamic Acid 1,000 MG in Sodium Chloride 0.9% 100 ML IV PRN ×2 (08:33→09:57)
[2021-01-20] MEDS ORDERED: Lidocaine 1% 30 ML SDV INJECT PRN (08:33)
[2021-01-20] MEDS: Oxytocin/Normal Saline 30 UNIT/500 ML BAG IV SCH ×2 (08:37→11:23)
[2021-01-20] MEDS ORDERED: Oxytocin/Normal Saline 30 UNIT/500 ML BAG IV SCH ×2 (08:45→10:00)
[2021-01-20] MEDS ORDERED: Labetalol 100 MG Tab PO SCH (09:00)
[2021-01-20] MEDS ORDERED: Penicillin G Potassium 5 MILLUNITS in Sodium Chloride 0.9% 100 ML IV ONE ×4 (09:00)
[2021-01-20] MEDS ORDERED: Nalbuphine 10 MG/1 ML Vial IM PRN (09:03)
[2021-01-20] MEDS ORDERED: Oxytocin/Normal Saline 60 UNIT/1,000 ML BAG ONE (09:47)
[2021-01-20] MEDS ORDERED: Sodium Chloride 0.9% 10 ML Syringe FLUSH PRN (09:57)
[2021-01-20] MEDS ORDERED: Carboprost Tromethamine 250 MCG/1 ML Amp IM PRN (09:57)
[2021-01-20] MEDS ORDERED: Citric Acid/Sodium Citrate Solution 30 ML Cup PO ONE (09:57)
[2021-01-20] MEDS ORDERED: Methylergonovine 0.2 MG Tab PO PRN (09:57)
[2021-01-20] MEDS ORDERED: Oxytocin 10 Units/1 ML SDV IM PRN (09:57)
[2021-01-20] MEDS ORDERED: Lactated Ringers 1,000 ML IV SCH ×3 (10:00→11:15)
[2021-01-20] MEDS ORDERED: Lactated Ringers 1,000 ML IV ONE (11:00)
[2021-01-20] MEDS ORDERED: Morphine PF 10 MG/10 ML SDV ONE (11:00)
[2021-01-20] MEDS ORDERED: ceFAZolin 2 GM in Premix Bag 1 BAG IV ONE (11:00)
[2021-01-20] MEDS ORDERED: fentaNYL 100 MCG/2 ML SDV IV ONE (11:00)
[2021-01-20] MEDS ORDERED: ePHEDrine 50 MG/ML SDV IV ONE (11:00)
[2021-01-20] MEDS ORDERED: Ondansetron 4 MG/2 ML SDV IV ONE (11:00)
[2021-01-20] MEDS ORDERED: Tranexamic Acid 1,000 MG in Sodium Chloride 0.9% 100 ML IV ONE (11:00)
[2021-01-20] MEDS ORDERED: Dexamethasone 4 MG/ML SDV IV ONE (11:00)
[2021-01-20] MEDS ORDERED: Naloxone 2 MG/2 ML Syringe IVPUSH PRN (11:13)
[2021-01-20] MEDS ORDERED: diphenhydrAMINE 50 MG/ML SDV IVPUSH PRN (11:13)
[2021-01-20] MEDS ORDERED: Acetaminophen 325 MG Tab PO PRN (11:13)
[2021-01-20] MEDS ORDERED: Penicillin G Potassium 3 MILLUNITS in Sodium Chloride 0.9% 100 ML IV SCH (13:00)
[2021-01-20] MEDS: Simethicone 80 MG Tab.Chew PO SCH ×3 (15:48→20:53)
[2021-01-20] MEDS: Labetalol 100 MG Tab PO SCH ×2 (15:59→20:52)
[2021-01-20] MEDS: Ketorolac 30 MG/ML SDV IVPUSH SCH ×2 (17:28→23:22)
[2021-01-20] MEDS: Docusate Sodium 100 MG Cap PO PRN (20:52)
[2021-01-21] MEDS: Ketorolac 30 MG/ML SDV IVPUSH SCH (05:49)
[2021-01-21] MEDS: Magnesium Sulfate/Water 20 GM/500 ML BAG IV SCH (07:07)
[2021-01-21] MEDS: Simethicone 80 MG Tab.Chew PO SCH ×4 (09:07→20:06)
[2021-01-21] MEDS: Prenatal Multivitamin with Calcium/Folic Acid/Iron Tab PO SCH (09:07)
[2021-01-21] MEDS: Labetalol 100 MG Tab PO SCH ×2 (09:07→15:10)
[2021-01-21] MEDS ORDERED: Measles, Mumps & Rubella Vaccine 0.5 ML SDV SUBCUT ONE (09:43)
[2021-01-21] MEDS: Acetaminophen/oxyCODONE 325-5 MG Tab PO PRN ×4 (09:57→23:57)
[2021-01-21] MEDS: Docusate Sodium 100 MG Cap PO PRN ×2 (09:57→20:06)
[2021-01-21 11:47] LABS: C.TRACHOMATIS BY TMA Positive (Negative); N.GONORRHOEAE BY TMA Negative (Negative)
[2021-01-21] MEDS ORDERED: Oxytocin/Normal Saline 30 UNIT/500 ML BAG IV ONE (12:25)
[2021-01-21] MEDS ORDERED: Azithromycin 250 MG Tab PO ONE (14:57)
--- NOTE | 2021-01-21 16:54 | PCM.SN.2 ---
- Free Text/Narrative Note: 01/20/21 Patient is being induced for severe preeclampsia. Currently on Magnesium and blood pressures are controlled with IV labetalol and hydralazine and oral labetalol. Patient had 3 doses of cytotec and is now 2.5 cm dilated. She was started on pitocin and given Nubain. Baby's heart rate maintained in the 140s but with minimal variability, no accels or decels. Patient nehemiah every 2-5 minutes. Her vaginal bleeding increased and she had softball size amount on pad at time of evaluation. She also had sudden increase in abdominal pain. Her blood pressures also started to rise now 150s/100s. Given diagnoses of severe preeclampsia, elevated blood pressures, increased vaginal bleeding and pain, placental abruption highly suspected. Cat 2 tracing did not improve with interventions. Decision to proceed with made, Dr. Morel consulted for . Discussed with patient at bedside who is in agreement with plan. Betty Coppola MD Time Documentation
[2021-01-21] MEDS: Ferrous Sulfate 325 MG Tab PO SCH (17:03)
[2021-01-21] MEDS: metroNIDAZOLE 250 MG Tab PO SCH (20:06)
--- NOTE | 2021-01-21 20:09 | PCM.PNPP ---
- General Info Date of Service: 01/21/21 - Review of Systems General: Reports: No Symptoms HEENT: Reports: No Symptoms Pulmonary: Reports: No Symptoms Cardiovascular: Reports: No Symptoms Gastrointestinal: Reports: Other (incision site pain) Musculoskeletal: Reports: No Symptoms Skin: Reports: No Symptoms Neurological: Reports: No Symptoms Psychiatric: Reports: No Symptoms - General Info Date of Service: 01/21/21 - Patient Data Vital Signs - Most Recent: Last Vital Signs Temp 97.7 F 01/21/21 16:00 Pulse 78 01/21/21 16:00 Resp 16 01/21/21 16:00 BP 141/80 H 01/21/21 16:00 Pulse Ox 98 01/21/21 16:00 Weight - Most Recent: 187 lb I&O - Last 24 Hours: Intake & Output 01/21/21 01/21/21 01/21/21 06:59 14:59 22:59 Output Total 2200 1200 500 Balance -2200 -1200 -500 Lab Results - Last 24 Hours: Laboratory Results - last 24 hr 01/19/21 01/19/21 01/19/21 Range/Units 16:25 16:25 17:00 WBC (5.0-10.0) 10^3/uL RBC (4.2-5.4) 10^6/uL Hgb (12.0-16.0) g/dL Hct (37.0-47.0) % MCV (80-100) fL MCH (27.0-34.0) pg MCHC (33.0-35.0) g/dL Plt Count (150-450) 10^3/uL Magnesium (1.8-2.4) mg/dL RPR Non-reac (Non-Reac) Chlamydia/GC Source Urine C.trachomatis RNA (TMA) Positive H (Negative) N.gonorrhoeae RNA (TMA) Negative (Negative) Rubella Immune Status N/a Rubella IgG Antibody Equivocal IU/mL 01/20/21 01/21/21 01/21/21 Range/Units 23:33 06:17 06:17 WBC 12.4 H (5.0-10.0) 10^3/uL RBC 3.93 L (4.2-5.4) 10^6/uL Hgb 8.5 L (12.0-16.0) g/dL Hct 27.2 L (37.0-47.0) % MCV 69.2 L (80-100) fL MCH 21.6 L (27.0-34.0) pg MCHC 31.3 L (33.0-35.0) g/dL Plt Count 321 (150-450) 10^3/uL Magnesium 7.3 H 7.3 H (1.8-2.4) mg/dL RPR (Non-Reac) Chlamydia/GC Source C.trachomatis RNA (TMA) (Negative) N.gonorrhoeae RNA (TMA) (Negative) Rubella Immune Status Rubella IgG Antibody IU/mL Micro Results - Last 24 Hours: Microbiology 01/19/21 18:37 Group B Streptococcus Culture - Preliminary Vaginal/Rectal NEGATIVE STREP GROUP B Med Orders - Current: Current Medications Acetaminophen (Acetaminophen 325 Mg Tab) 650 mg PO Q6H PRN PRN Reason: Mild Pain (1-3) or Fever Carboprost Tromethamine (Carboprost Tromethamine 250 Mcg/1 Ml Amp) 250 mcg IM ASDIRECTED PRN PRN Reason: Excessive vaginal bleeding Diphenhydramine HCl (Diphenhydramine 50 Mg/Ml Sdv) 25 mg IVPUSH Q6H PRN PRN Reason: Itching or Nausea Docusate Sodium (Docusate Sodium 100 Mg Cap) 100 mg PO Q12H PRN PRN Reason: Constipation Last Admin: 01/21/21 09:57 Dose: 100 mg Documented by: Ephedrine Sulfate (Ephedrine 50 Mg/Ml Sdv) 5 mg IVPUSH Q5M PRN PRN Reason: See Label Comments Ferrous Sulfate (Ferrous Sulfate 325 Mg Tab) 325 mg PO BIDMEALS [facility] Last Admin: 01/21/21 17:03 Dose: 325 mg Documented by: Lactated Ringer's (Ringers, Lactated) 500 mls @ 999 mls/hr IV SEECOMMENT JEMAL Lactated Ringer's (Ringers, Lactated) 1,000 mls @ 125 mls/hr IV ASDIRECTED J[facility]AL Last Admin: 01/20/21 15:58 Dose: 125 mls/hr Documented by: Oxytocin/Sodium Chloride (Pitocin In Ns 30 Unit/500 Ml) 30 unit in 500 mls @ 2 mls/hr IV TITRATE J[facility]; Protocol Last Titration: 01/20/21 14:10 Dose: 0 munits/min, 0 mls/hr Documented by: Tranexamic Acid 1,000 mg/ (Sodium Chloride) 110 mls @ 660 mls/hr IV ONETIME PRN PRN Reason: Bleeding Lactated Ringer's (Ringers, Lactated) 1,000 mls @ 500 mls/hr IV .BOLUS [facility] Lidocaine HCl (Lidocaine 1% 30 Ml Sdv) 30 ml INJECT ASDIRECTED PRN PRN Reason: Perineal Repair Methylergonovine Maleate (Methylergonovine 0.2 Mg Tab) 0.2 mg PO ONETIME PRN PRN Reason: Excessive vaginal bleeding Metronidazole (Metronidazole 250 Mg Tab) 500 mg PO Q12HR [facility] Misoprostol (Misoprostol 400 Mcg (4 X 100 Mcg Tab)) 800 mcg RECTAL ASDIRECTED PRN PRN Reason: Hemorrhage Nalbuphine HCl (Nalbuphine 10 Mg/1 Ml Vial) 20 mg IM ONETIME PRN PRN Reason: Pain Naloxone HCl (Naloxone 2 Mg/2 Ml Syringe) 0.1 mg IVPUSH SEECOMMENT PRN PRN Reason: Respiratory Depression Ondansetron HCl (Ondansetron 4 Mg/2 Ml Sdv) 4 mg IVPUSH Q4H PRN PRN Reason: Nausea/Vomiting Oxycodone/Acetaminophen (Acetaminophen/Oxycodone 325-5 Mg Tab) 1 tab PO Q4H PRN PRN Reason: Pain (moderate 4-6) Last Admin: 01/21/21 16:55 Dose: 1 tab Documented by: Oxycodone/Acetaminophen (Acetaminophen/Oxycodone 325-5 Mg Tab) 2 tab PO Q4H PRN PRN Reason: Pain (moderate 4-6) Oxytocin (Oxytocin 10 Units/1 Ml Sdv) 10 unit IM ONETIME PRN PRN Reason: Excessive vaginal bleeding Prenat Multivit/[place]/Iron/Folic Ac ( Multivitamin With Calcium/Folic Acid/Iron Tab) 1 each PO DAILY [facility] Last Admin: 01/21/21 09:07 Dose: 1 each Documented by: Promethazine HCl (Promethazine 25 Mg/Ml Sdv) 12.5 mg IM Q6H PRN PRN Reason: Nausea/Vomiting Simethicone (Simethicone 80 Mg Tab.Chew) 160 mg PO QID [facility] Last Admin: 01/21/21 16:55 Dose: 160 mg Documented by: Sodium Chloride (Sodium Chloride 0.9% 10 Ml Syringe) 10 ml FLUSH ASDIRECTED PRN PRN Reason: Keep Vein Open Discontinued Medications Acetaminophen (Acetaminophen 325 Mg Tab) 650 mg PO Q4H PRN PRN Reason: Pain/Fever Last Admin: 01/20/21 00:43 Dose: 650 mg Documented by: Azithromycin (Azithromycin 250 Mg Tab) 1,000 mg PO ONETIME ONE Stop: 01/21/21 14:58 Last Admin: 01/21/21 16:54 Dose: 1,000 mg Documented by: Citric Acid/Sodium Citrate (Citric Acid/Sodium Citrate Solution 30 Ml Cup) 30 ml PO ONETIME ONE Stop: 01/20/21 09:58 Last Admin: 01/20/21 11:33 Dose: Not Given Documented by: Dexamethasone (Dexamethasone 4 Mg/Ml Sdv) 8 mg IV .STK-MED ONE Stop: 01/20/21 11:01 Ephedrine Sulfate (Ephedrine 50 Mg/Ml Sdv) 25 mg IV .STK-MED ONE Stop: 01/20/21 11:01 Fentanyl (Fentanyl 100 Mcg/2 Ml Sdv) 100 mcg IV .STK-MED ONE Stop: 01/20/21 11:01 Hydralazine HCl (Hydralazine 20 Mg/Ml Sdv) Confirm Administered Dose 20 mg .ROUTE .STK-MED ONE Stop: 01/20/21 06:21 Last Admin: 01/20/21 06:42 Dose: Not Given Documented by: Hydralazine HCl (Hydralazine 20 Mg/Ml Sdv) 5 mg IVPUSH ONETIME ONE Stop: 01/20/21 06:24 Last Admin: 01/20/21 06:25 Dose: 5 mg Documented by: Magnesium Sulfate 4 gm/ Premix 100 mls @ 300 mls/hr IV BOLUS ONE Stop: 01/19/21 16:34 Last Admin: 01/19/21 16:46 Dose: 300 mls/hr Documented by: Magnesium Sulfate (Magnesium Sulfate In Water 20 Gm/500 Ml) 20 gm in 500 mls @ 50 mls/hr IV ASDIRECTED [facility] Last Admin: 01/21/21 07:07 Dose: 50 mls/hr Documented by: Lactated Ringer's (Ringers, Lactated) 500 mls @ 999 mls/hr IV .BOLUS JEMAL Penicillin G Potassium 3 (millunits/ Sodium Chloride) 100 mls @ 200 mls/hr IV Q4H J[facility] Penicillin G Potassium 5 (millunits/ Sodium Chloride) 100 mls @ 200 mls/hr IV ONETIME ONE Stop: 01/20/21 09:29 Last Admin: 01/20/21 09:26 Dose: 200 mls/hr Documented by: Cefazolin Sodium/Dextrose (Ancef 2 Gm/50 Ml) Confirm Administered Dose 50 mls @ as directed .ROUTE .STK-MED ONE Stop: 01/20/21 09:48 Oxytocin/Sodium Chloride (Pitocin In Ns 30 Unit/500 Ml) Confirm Administered Dose 60 unit in 1,000 mls @ as directed .ROUTE .STK-MED ONE Stop: 01/20/21 09:48 Cefazolin Sodium/Dextrose 2 gm (/ Premix) 50 mls @ 100 mls/hr IV ONETIME ONE Stop: 01/20/21 11:29 Last Admin: 01/20/21 10:15 Dose: 100 mls/hr Documented by: Tranexamic Acid 1,000 mg/ (Sodium Chloride) 110 mls @ as directed IV .STK-MED ONE Stop: 01/20/21 11:01 Lactated Ringer's (Ringers, Lactated) 1,000 mls @ as directed IV .STK-MED ONE Stop: 01/20/21 11:01 Oxytocin/Sodium Chloride (Pitocin In Ns 30 Unit/500 Ml) 30 unit in 500 mls @ as directed IV .STK-MED ONE Stop: 01/21/21 12:26 Ketorolac Tromethamine (Ketorolac 30 Mg/Ml Sdv) 15 mg IVPUSH Q6H [facility] Stop: 01/21/21 05:31 Last Admin: 01/21/21 05:49 Dose: 15 mg Documented by: Labetalol HCl (Labetalol 20 Mg/4 Ml Syringe) 10 mg IVPUSH ONETIME ONE Stop: 01/19/21 16:14 Last Admin: 01/19/21 17:24 Dose: Not Given Documented by: Labetalol HCl (Labetalol 20 Mg/4 Ml Syringe) 10 mg IVPUSH ONETIME ONE Stop: 01/19/21 16:16 Last Admin: 01/19/21 16:37 Dose: 10 mg Documented by: Labetalol HCl (Labetalol 20 Mg/4 Ml Syringe) 0 mg IV ASDIRECTED PRN PRN Reason: HIGH BLOOD PRESSURE Last Admin: 01/20/21 05:36 Dose: 20 mg Documented by: Labetalol HCl (Labetalol 20 Mg/4 Ml Syringe) 40 mg IVPUSH ONETIME ONE Stop: 01/20/21 07:10 Last Admin: 01/20/21 07:18 Dose: 40 mg Documented by: Labetalol HCl (Labetalol 100 Mg Tab) 200 mg PO TID JEM[facility] Last Admin: 01/20/21 08:38 Dose: 200 mg Documented by: Labetalol HCl (Labetalol 100 Mg Tab) 200 mg PO TID [facility] Last Admin: 01/21/21 15:10 Dose: Not Given Documented by: Measles/Mumps/Rubella Vaccine Live (Measles, Mumps & Rubella Vaccine 0.5 Ml Sdv) 0.5 ml SUBCUT .ONCE ONE Stop: 01/21/21 09:44 Last Admin: 01/21/21 12:24 Dose: 0.5 ml Documented by: Misoprostol (Misoprostol 25 Mcg (1/4 Of 100 Mcg) Tab) 25 mcg VAG ONETIME ONE Stop: 01/19/21 18:50 Last Admin: 01/19/21 19:47 Dose: 25 mcg Documented by: Misoprostol (Misoprostol 25 Mcg (1/4 Of 100 Mcg) Tab) 25 mcg VAG Q4H PRN PRN Reason: Other Last Admin: 01/20/21 03:50 Dose: 25 mcg Documented by: Morphine Sulfate (Morphine Pf 10 Mg/10 Ml Sdv) 0.2 mg .XX .STK-MED ONE Stop: 01/20/21 11:01 Naloxone HCl (Naloxone 2 Mg/2 Ml Syringe) 0.1 mg IVPUSH SEECOMMENT PRN PRN Reason: Respiratory Depression Ondansetron HCl (Ondansetron 4 Mg/2 Ml Sdv) 4 mg IV .STK-MED ONE Stop: 01/20/21 11:01 - Infant Interaction Infant Disposition, : to Nursery Infant Interaction: Not Interacting Feeding: Bottle Fed Support Person: Friend - Recovery Exam Fundal Tone: Firm Fundal Level: 1 Fingerbreadths Below Umbilicus Fundal Placement: Midline Lochia Amount: Small Lochia Color: Rubra/Red Perineum Description: Intact, Minimal Bruising/Swelling Episiotomy/Laceration: None Bladder Status: Indwelling Catheter in Place Urinary Elimination: Indwelling Catheter - Exam General: Alert, Oriented HEENT: Other (Right pupil equal round and reactive to light, 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) Neck: Supple Lungs: Clear to Auscultation, Normal Respiratory Effort Cardiovascular: Regular Rate, Regular Rhythm GI/Abdominal Exam: Normal Bowel Sounds Extremities: Normal Inspection Skin: Warm, Dry, Intact Wound/Incisions: Healing Well, Dressing Dry and Intact, No Drainage Neurological: No New Focal Deficit, Strength Equal Bilateral Psy/Mental Status: Alert, Normal Affect, Normal Mood - Problem List & Annotations (1) Pre-eclampsia affecting , antepartum SNOMED Code(s): 859376144, 211334017 Code(s): O14.90 - UNSPECIFIED PRE-ECLAMPSIA, UNSPECIFIED TRIMESTER Status: Acute Priority: High Current Visit: Yes Onset Date: ~01/19/21 Annotation/Comment:: -Blood pressures >170/100 on admission -PIH labs WNL; Urine P/CR too high to calculate -s/p LTCS on 01/20/21 due to vaginal bleeding and placental abruption -Magnesium sulfate IV stopped today -Blood pressures today well-controlled -Strict I&Os -Blood pressure control with IV labetalol and hydralazine -Labetalol 200mg TID -Monitor for signs of eclampsia (2) Poor patient attendance of care SNOMED Code(s): 568682066 Code(s): O09.30 - SUPRVSN OF PREG W INSUFFICIENT ANTENAT CARE, UNSP TRIMESTER Status: Acute Current Visit: Yes Annotation/Comment:: -Complete OB labs ordered; noted anemia to 9.9 and O+ blood type -Unable to find documentation of reported visit in [place]; presume no care (3) GBS screening not performed SNOMED Code(s): 085282666 Code(s): AQY1827 - Status: Acute Current Visit: Yes Annotation/Comment:: -Received penicillin during labor; (4) COVID-19 SNOMED Code(s): 346692330 Code(s): U07.1 - COVID-19 Status: Acute Current Visit: Yes Annotation/Comment:: -Currently asymptomatic -Contact and airborne precautions -Monitor for symptoms (5) Drug use affecting , antepartum SNOMED Code(s): 95925147, 239191486 Code(s): O99.320 - DRUG USE COMPLICATING , UNSPECIFIED TRIMESTER Status: Acute Current Visit: Yes Annotation/Comment:: -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 -Monitor for withdrawal -HIV negative (6) Trichomonas infection SNOMED Code(s): 17771183 Code(s): A59.9 - TRICHOMONIASIS, UNSPECIFIED Status: Acute Current Visit: No Annotation/Comment:: -Metronidazole 500mg BID x 7 days (7) Chlamydia infection SNOMED Code(s): 903263680 Code(s): A74.9 - CHLAMYDIAL INFECTION, UNSPECIFIED Status: Acute Current Visit: Yes Annotation/Comment:: -Treated; azithromycin 1g x 1 dose - Problem List Review Problem List Initiated/Reviewed/Updated: Yes - Plan Plan:: Agree with resident's assessment and plan. Induction of labor for severe preeclampsia, on magnesium. Meth and THC positive. Social work to be consulted. COVID positive Betty Coppola MD
--- NOTE | 2021-01-21 23:13 | PCM.PRNOTE ---
- Free Text/Narrative Note: Section Operative Report Date of Surgery: 01/20/2021 Surgeon: Rachell Morel MD Electron Beam Machine Welder Setter: MD Brianna Contreras MD Pre-Operative Diagnosis: 25-year-old at 39w2d per ultrasound No care Pre-elcampsia intolerance of labor Vaginal bleeding, suspect placental abruption Post-Operative Diagnosis: Same Procedure Performed: Primary low transverse section Anesthesia: Spinal EBL: 800 mL IVF: 1200 mL Drains: Byrnes catheter with 250 mL of urine output Specimens: Umbilical cord for CordStat testing Complications: Adherent placental membranes. Findings: Normal uterus, tubes, and ovaries. Indication and Consent: During labor the heart tracing began to show signs of developing hypoxemia. Conservative measures of oxygen supplementation and position changes did not relieve these findings. Patient also had vaginal bleeding that seemed to be increasing in severity. section was recommended to the patient for wellbeing. The patient understood that the risks of section include, but are not limited to, visceral or vascular injury, infection, blood loss and need for blood transfusion, prolonged hospitalization, and reoperation. The patient stated understanding and desired to proceed. All questions were answered. Procedure in Detail: The patient was taken to the operating room. Byrnes catheter and pneumoboots were placed. Spinal anesthesia was administered. She was then prepped and draped in routine fashion in dorsal supine position with a left dick tilt. Two grams of cefazolin (Ancef) were given for infection prophylaxis. A Pfannenstiel skin incision was made with a scalpel. The incision was carried down to the fascia sharply. The fascia was incised and extended laterally. The superor aspect of the fascia was grasped with Craol clamps; the underlying rectus muscle and pyramidalis was dissected off with sharp and blunt technique. In a similar fashion, the inferior aspect of the fascia was elevated with Carol clamps and the rectus muscle was dissected off. Hemostasis was achieved with the Bovie. The rectus musculature was in the midline down to the le shelton of the pubic symphysis. Pre-peritoneal fatty tissue was bluntly dissected to expose the peritoneum. The peritoneum was found to be free of adherent bowel or bladder tissue and entered bluntly. The peritoneal opening was then extended superiorly and inferiorly to the bladder reflection with good visualization of the bladder. The Harlan retractor was inserted. Intraabdominal survey revealed scant, clear peritoneal fluid and thinned-out lower uterine segment. The vesicouterine peritoneum was opened with a pickup and mets, and the bladder flap was developed. The lower uterine segment was incised with a scalpel. The amniotic sac was ruptured with an Allis clamp and dark red blood mixed with amniotic fluid was noted. The uterine incision was extended bluntly with lateral and upw smiley traction. The fetus was in vertex position. The head was elevated out of the maternal pelvis with special attention paid to avoid using the uterine incision as a fulcrum. Gentle fundal pressure was applied once the head was brought into the incision. The was delivered with minimal difficulty. Bulb suctioning of the infant's nose and mouth was performed on the operative field. The cord was clamped and cut in standard fashion, and the infant was handed over to the awaiting nursery staff. IV oxytocin was initiated to facilitate uterine contractions. The placenta was delivered intact with manual message of the uterine fundus along with gentle cord traction. After removal of the placenta, the inside of the uterus was wiped multiple times with a lap sponge. Small fragments of placental membranes appeared to be adherent to the uterine wall. Dr. Dillon was called to assist at the table. Using several different sized banjo curettes, Dr. Dillon performed gentle curettage fo the uterus until all fragments of placental membranes appeared to be removed. The inside of the uterus was again gently wiped with a lap sponge to assure complete removal of remaining products of conception. The uterine incision was closed with 0 -Vicryl suture in a running locked fashion. A second imbricating layer of 0-Vicryl was also placed. The incision was inspected and hemostasis achieved. The ovaries and tubes were visualized and found to be normal. The uterus, tubes, and ovaries were returned to the abdominal cavity. The blood clots and fluid were wiped out of the abdomen and pelvis with moist laparotomy sponges. The uterine incision was re-inspected along with all other incised surfaces and good hemostasis was confirmed. The Harlan retractor was removed. The peritoneus was then closed using 2-0 Vicyrl. The fascia was then closed with 2-0 looped PDS suture with care not to include any underlying abdominal contents. The skin was closed with 3-0 suture on a Randall needle in a subcuticular fashion. Dressing was applied. Sponge and instrument counts were reported as correct times two. Patient tolerated procedure well and was taken to PACU in stable condition. Rachell Morel MD
[2021-01-22] MEDS ORDERED: Codeine/Promethazine 10-6.25 MG/5 ML Syrup 5 ML UD Cup PO SCH
[2021-01-22] MEDS ORDERED: Labetalol 100 MG Tab PO ONE (04:27)
[2021-01-22] MEDS: Acetaminophen/oxyCODONE 325-5 MG Tab PO PRN ×3 (04:28→20:18)
[2021-01-22] MEDS: Docusate Sodium 100 MG Cap PO PRN ×2 (08:04→20:19)
[2021-01-22] MEDS: Prenatal Multivitamin with Calcium/Folic Acid/Iron Tab PO SCH (08:04)
[2021-01-22] MEDS: metroNIDAZOLE 250 MG Tab PO SCH ×2 (08:04→20:19)
[2021-01-22] MEDS: Ferrous Sulfate 325 MG Tab PO SCH ×2 (08:04→17:45)
[2021-01-22] MEDS: Simethicone 80 MG Tab.Chew PO SCH ×4 (08:04→20:19)
--- NOTE | 2021-01-22 10:07 | PCM.PNPP ---
<Rhianna Montenegro - Last Filed: 01/22/21 10:05> - General Info Date of Service: 01/22/21 Functional Status: Reports: Pain Controlled, Tolerating Diet, Ambulating, Urinating - Review of Systems General: Reports: No Symptoms HEENT: Reports: No Symptoms Pulmonary: Reports: No Symptoms Cardiovascular: Reports: No Symptoms Gastrointestinal: Reports: No Symptoms Genitourinary: Reports: No Symptoms Musculoskeletal: Reports: No Symptoms Skin: Reports: No Symptoms Neurological: Reports: No Symptoms Psychiatric: Reports: No Symptoms - General Info Date of Service: 01/22/21 - Patient Data Vital Signs - Most Recent: Last Vital Signs Temp 99.3 F 01/22/21 08:00 Pulse 85 01/22/21 08:00 Resp 18 01/22/21 08:00 BP 132/75 01/22/21 08:00 Pulse Ox 98 01/21/21 20:08 Weight - Most Recent: 84.822 kg I&O - Last 24 Hours: Intake & Output 01/21/21 01/22/21 01/22/21 22:59 06:59 14:59 Output Total 1000 Balance -1000 Lab Results - Last 24 Hours: Laboratory Results - last 24 hr 01/19/21 01/19/21 Range/Units 16:25 17:00 RPR Non-reac (Non-Reac) Chlamydia/GC Source Urine C.trachomatis RNA (TMA) Positive H (Negative) N.gonorrhoeae RNA (TMA) Negative (Negative) Micro Results - Last 24 Hours: Microbiology 01/19/21 18:37 Group B Streptococcus Culture - Final Vaginal/Rectal NEGATIVE STREP GROUP B Med Orders - Current: Current Medications Acetaminophen (Acetaminophen 325 Mg Tab) 650 mg PO Q6H PRN PRN Reason: Mild Pain (1-3) or Fever Carboprost Tromethamine (Carboprost Tromethamine 250 Mcg/1 Ml Amp) 250 mcg IM ASDIRECTED PRN PRN Reason: Excessive vaginal bleeding Diphenhydramine HCl (Diphenhydramine 50 Mg/Ml Sdv) 25 mg IVPUSH Q6H PRN PRN Reason: Itching or Nausea Docusate Sodium (Docusate Sodium 100 Mg Cap) 100 mg PO Q12H PRN PRN Reason: Constipation Last Admin: 01/22/21 08:04 Dose: 100 mg Documented by: Ephedrine Sulfate (Ephedrine 50 Mg/Ml Sdv) 5 mg IVPUSH Q5M PRN PRN Reason: See Label Comments Ferrous Sulfate (Ferrous Sulfate 325 Mg Tab) 325 mg PO BIDMEALS [facility] Last Admin: 01/22/21 08:04 Dose: 325 mg Documented by: Lactated Ringer's (Ringers, Lactated) 500 mls @ 999 mls/hr IV SEECOMMENT [facility] Lactated Ringer's (Ringers, Lactated) 1,000 mls @ 125 mls/hr IV ASDIRECTED [facility] Last Admin: 01/20/21 15:58 Dose: 125 mls/hr Documented by: Oxytocin/Sodium Chloride (Pitocin In Ns 30 Unit/500 Ml) 30 unit in 500 mls @ 2 mls/hr IV TITRATE [facility]; Protocol Last Titration: 01/20/21 14:10 Dose: 0 munits/min, 0 mls/hr Documented by: Tranexamic Acid 1,000 mg/ (Sodium Chloride) 110 mls @ 660 mls/hr IV ONETIME PRN PRN Reason: Bleeding Lactated Ringer's (Ringers, Lactated) 1,000 mls @ 500 mls/hr IV .BOLUS [facility] Lidocaine HCl (Lidocaine 1% 30 Ml Sdv) 30 ml INJECT ASDIRECTED PRN PRN Reason: Perineal Repair Methylergonovine Maleate (Methylergonovine 0.2 Mg Tab) 0.2 mg PO ONETIME PRN PRN Reason: Excessive vaginal bleeding Metronidazole (Metronidazole 250 Mg Tab) 500 mg PO Q12HR [facility] Last Admin: 01/22/21 08:04 Dose: 500 mg Documented by: Misoprostol (Misoprostol 400 Mcg (4 X 100 Mcg Tab)) 800 mcg RECTAL ASDIRECTED PRN PRN Reason: Hemorrhage Nalbuphine HCl (Nalbuphine 10 Mg/1 Ml Vial) 20 mg IM ONETIME PRN PRN Reason: Pain Naloxone HCl (Naloxone 2 Mg/2 Ml Syringe) 0.1 mg IVPUSH SEECOMMENT PRN PRN Reason: Respiratory Depression Ondansetron HCl (Ondansetron 4 Mg/2 Ml Sdv) 4 mg IVPUSH Q4H PRN PRN Reason: Nausea/Vomiting Oxycodone/Acetaminophen (Acetaminophen/Oxycodone 325-5 Mg Tab) 1 tab PO Q4H PRN PRN Reason: Pain (moderate 4-6) Last Admin: 01/21/21 16:55 Dose: 1 tab Documented by: Oxycodone/Acetaminophen (Acetaminophen/Oxycodone 325-5 Mg Tab) 2 tab PO Q4H PRN PRN Reason: Pain (moderate 4-6) Last Admin: 01/22/21 04:28 Dose: 2 tab Documented by: Oxytocin (Oxytocin 10 Units/1 Ml Sdv) 10 unit IM ONETIME PRN PRN Reason: Excessive vaginal bleeding Prenat Multivit/Sibley/Iron/Folic Ac ( Multivitamin With Calcium/Folic Acid/Iron Tab) 1 each PO DAILY [facility] Last Admin: 01/22/21 08:04 Dose: 1 each Documented by: Promethazine HCl (Promethazine 25 Mg/Ml Sdv) 12.5 mg IM Q6H PRN PRN Reason: Nausea/Vomiting Simethicone (Simethicone 80 Mg Tab.Chew) 160 mg PO QID [facility] Last Admin: 01/22/21 08:04 Dose: 160 mg Documented by: Sodium Chloride (Sodium Chloride 0.9% 10 Ml Syringe) 10 ml FLUSH ASDIRECTED PRN PRN Reason: Keep Vein Open Discontinued Medications Acetaminophen (Acetaminophen 325 Mg Tab) 650 mg PO Q4H PRN PRN Reason: Pain/Fever Last Admin: 01/20/21 00:43 Dose: 650 mg Documented by: Azithromycin (Azithromycin 250 Mg Tab) 1,000 mg PO ONETIME ONE Stop: 01/21/21 14:58 Last Admin: 01/21/21 16:54 Dose: 1,000 mg Documented by: Citric Acid/Sodium Citrate (Citric Acid/Sodium Citrate Solution 30 Ml Cup) 30 ml PO ONETIME ONE Stop: 01/20/21 09:58 Last Admin: 01/20/21 11:33 Dose: Not Given Documented by: Dexamethasone (Dexamethasone 4 Mg/Ml Sdv) 8 mg IV .STK-MED ONE Stop: 01/20/21 11:01 Ephedrine Sulfate (Ephedrine 50 Mg/Ml Sdv) 25 mg IV .STK-MED ONE Stop: 01/20/21 11:01 Fentanyl (Fentanyl 100 Mcg/2 Ml Sdv) 100 mcg IV .STK-MED ONE Stop: 01/20/21 11:01 Hydralazine HCl (Hydralazine 20 Mg/Ml Sdv) Confirm Administered Dose 20 mg .R OUTE .STK-MED ONE Stop: 01/20/21 06:21 Last Admin: 01/20/21 06:42 Dose: Not Given Documented by: Hydralazine HCl (Hydralazine 20 Mg/Ml Sdv) 5 mg IVPUSH ONETIME ONE Stop: 01/20/21 06:24 Last Admin: 01/20/21 06:25 Dose: 5 mg Documented by: Magnesium Sulfate 4 gm/ Premix 100 mls @ 300 mls/hr IV BOLUS ONE Stop: 01/19/21 16:34 Last Admin: 01/19/21 16:46 Dose: 300 mls/hr Documented by: Magnesium Sulfate (Magnesium Sulfate In Water 20 Gm/500 Ml) 20 gm in 500 mls @ 50 mls/hr IV ASDIRECTED [facility] Last Admin: 01/21/21 07:07 Dose: 50 mls/hr Documented by: Lactated Ringer's (Ringers, Lactated) 500 mls @ 999 mls/hr IV .BOLUS [facility] Penicillin G Potassium 3 (millunits/ Sodium Chloride) 100 mls @ 200 mls/hr IV Q4H [facility] Penicillin G Potassium 5 (millunits/ Sodium Chloride) 100 mls @ 200 mls/hr IV ONETIME ONE Stop: 01/20/21 09:29 Last Admin: 01/20/21 09:26 Dose: 200 mls/hr Documented by: Cefazolin Sodium/Dextrose (Ancef 2 Gm/50 Ml) Confirm Administered Dose 50 mls @ as directed .ROUTE .STK-MED ONE Stop: 01/20/21 09:48 Oxytocin/Sodium Chloride (Pitocin In Ns 30 Unit/500 Ml) Confirm Administered Dose 60 unit in 1,000 mls @ as directed .ROUTE .STK-MED ONE Stop: 01/20/21 09:48 Cefazolin Sodium/Dextrose 2 gm (/ Premix) 50 mls @ 100 mls/hr IV ONETIME ONE Stop: 01/20/21 11:29 Last Admin: 01/20/21 10:15 Dose: 100 mls/hr Documented by: Tranexamic Acid 1,000 mg/ (Sodium Chloride) 110 mls @ as directed IV .STK-MED ONE Stop: 01/20/21 11:01 Lactated Ringer's (Ringers, Lactated) 1,000 mls @ as directed IV .STK-MED ONE Stop: 01/20/21 11:01 Oxytocin/Sodium Chloride (Pitocin In Ns 30 Unit/500 Ml) 30 unit in 500 mls @ as directed IV .STK-MED ONE Stop: 01/21/21 12:26 Ketorolac Tromethamine (Ketorolac 30 Mg/Ml Sdv) 15 mg IVPUSH Q6H [facility] Stop: 01/21/21 05:31 Last Admin: 01/21/21 05:49 Dose: 15 mg Documented by: Labetalol HCl (Labetalol 20 Mg/4 Ml Syringe) 10 mg IVPUSH ONETIME ONE Stop: 01/19/21 16:14 Last Admin: 01/19/21 17:24 Dose: Not Given Documented by: Labetalol HCl (Labetalol 20 Mg/4 Ml Syringe) 10 mg IVPUSH ONETIME ONE Stop: 01/19/21 16:16 Last Admin: 01/19/21 16:37 Dose: 10 mg Documented by: Labetalol HCl (Labetalol 20 Mg/4 Ml Syringe) 0 mg IV ASDIRECTED PRN PRN Reason: HIGH BLOOD PRESSURE Last Admin: 01/20/21 05:36 Dose: 20 mg Documented by: Labetalol HCl (Labetalol 20 Mg/4 Ml Syringe) 40 mg IVPUSH ONETIME ONE Stop: 01/20/21 07:10 Last Admin: 01/20/21 07:18 Dose: 40 mg Documented by: Labetalol HCl (Labetalol 100 Mg Tab) 200 mg PO TID [facility] Last Admin: 01/20/21 08:38 Dose: 200 mg Documented by: Labetalol HCl (Labetalol 100 Mg Tab) 200 mg PO TID [facility] Last Admin: 01/21/21 15:10 Dose: Not Given Documented by: Labetalol HCl (Labetalol 100 Mg Tab) 200 mg PO ONETIME ONE Stop: 01/22/21 04:28 Last Admin: 01/22/21 04:32 Dose: 200 mg Documented by: Measles/Mumps/Rubella Vaccine Live (Measles, Mumps & Rubella Vaccine 0.5 Ml Sdv) 0.5 ml SUBCUT .ONCE ONE Stop: 01/21/21 09:44 Last Admin: 01/21/21 12:24 Dose: 0.5 ml Documented by: Misoprostol (Misoprostol 25 Mcg (1/4 Of 100 Mcg) Tab) 25 mcg VAG ONETIME ONE Stop: 01/19/21 18:50 Last Admin: 01/19/21 19:47 Dose: 25 mcg Documented by: Misoprostol (Misoprostol 25 Mcg (1/4 Of 100 Mcg) Tab) 25 mcg VAG Q4H PRN PRN Reason: Other Last Admin: 01/20/21 03:50 Dose: 25 mcg Documented by: Morphine Sulfate (Morphine Pf 10 Mg/10 Ml Sdv) 0.2 mg .XX .STK-MED ONE Stop: 01/20/21 11:01 Naloxone HCl (Naloxone 2 Mg/2 Ml Syringe) 0.1 mg IVPUSH SEECOMMENT PRN PRN Reason: Respiratory Depression Ondansetron HCl (Ondansetron 4 Mg/2 Ml Sdv) 4 mg IV .STK-MED ONE Stop: 01/20/21 11:01 - Infant Interaction Infant Disposition, : [place] to Nursery Infant Interaction: Not Interacting Infant Feeding: Bottle Fed Infant Support Person: Friend - Recovery Exam Fundal Tone: Firm Fundal Level: 1 Fingerbreadths Below Umbilicus Fundal Placement: Midline Lochia Amount: Scant Lochia Color: Rubra/Red Perineum Description: Intact, Minimal Bruising/Swelling Episiotomy/Laceration: None Bladder Status: Voiding Urinary Elimination: Indwelling Catheter - Exam General: Alert, Oriented HEENT: Pupils Equal Neck: Supple Lungs: Clear to Auscultation, Normal Respiratory Effort Cardiovascular: Regular Rate, Regular Rhythm GI/Abdominal Exam: Normal Bowel Sounds, Soft, Non-Tender, No Organomegaly, No Distention, No Abnormal Bruit, No Mass, Pelvis Stable Extremities: Normal Inspection, Normal Range of Motion, Non-Tender, No Pedal Edema, Normal Capillary Refill Skin: Warm, Dry, Intact Wound/Incisions: Healing Well Neurological: No New Focal Deficit Psy/Mental Status: Alert, Normal Affect, Normal Mood - Problem List & Annotations (1) Pre-eclampsia affecting , antepartum SNOMED Code(s): 105374931, 705377957 Code(s): O14.90 - UNSPECIFIED PRE-ECLAMPSIA, UNSPECIFIED TRIMESTER Status: Acute Priority: High Current Visit: Yes Onset Date: ~01/19/21 Annotation/Comment:: -Blood pressures >170/100 on admission -PIH labs WNL; Urine P/CR too high to calculate -s/p LTCS on 01/20/21 due to vaginal bleeding and placental abruption -Magnesium sulfate IV stopped yesterday -Blood pressures today well-controlled; may restart labetalol 200mg BID until 1 week incision check -Strict I&Os -Blood pressure control with IV labetalol and hydralazine -Labetalol 200mg TID -Monitor for signs of eclampsia (2) Poor patient attendance of care SNOMED Code(s): 883775545 Code(s): O09.30 - SUPRVSN OF PREG W INSUFFICIENT ANTENAT CARE, UNSP TRIMESTER Status: Acute Current Visit: Yes Annotation/Comment:: -Complete OB labs ordered; noted anemia to 9.9 and O+ blood type -Unable to find documentation of reported visit in [facility]; presume no care (3) GBS screening not performed SNOMED Code(s): 382904222 Code(s): ECC7708 - Status: Acute Current Visit: Yes Annotation/Comment:: -Received penicillin during labor; (4) COVID-19 SNOMED Code(s): 313861133 Code(s): U07.1 - COVID-19 Status: Acute Current Visit: Yes Annotation/Comment:: -Currently asymptomatic -Contact and airborne precautions -Monitor for symptoms (5) Drug use affecting , antepartum SNOMED Code(s): 42557296, 057068905 Code(s): O99.320 - DRUG USE COMPLICATING , UNSPECIFIED TRIMESTER Status: Acute Current Visit: Yes Annotation/Comment:: -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 -Monitor for withdrawal -HIV negative (6) Trichomonas infection SNOMED Code(s): 67075800 Code(s): A59.9 - TRICHOMONIASIS, UNSPECIFIED Status: Acute Current Visit: No Annotation/Comment:: -Metronidazole 500mg BID x 7 days (7) Chlamydia infection SNOMED Code(s): 750079945 Code(s): A74.9 - CHLAMYDIAL INFECTION, UNSPECIFIED Status: Acute Current Visit: Yes Annotation/Comment:: -Treated; azithromycin 1g x 1 dose - Problem List Review Problem List Initiated/Reviewed/Updated: Yes - Plan Plan:: Agree with resident's assessment and plan. Induction of labor for severe preeclampsia, on magnesium. Meth and THC positive. Social work to be consulted. COVID positive Betty Coppola MD <Betty Coppola - Last Filed: 01/23/21 08:38> - Patient Data Vital Signs - Most Recent: Last Vital Signs Temp 98.1 F 01/23/21 06:03 Pulse 104 H 01/23/21 06:03 Resp 16 01/23/21 06:03 BP 141/80 H 01/23/21 06:03 Pulse Ox 97 01/23/21 06:03 I&O - Last 24 Hours: Intake & Output 01/22/21 01/23/21 01/23/21 22:59 06:59 14:59 Intake Total 120 Balance 120 Lab Results - Last 24 Hours: Laboratory Results - last 24 hr 01/19/21 01/19/21 01/19/21 Range/Units 16:25 16:25 16:25 Sodium (136-145) mmol/L Potassium (3.5-5.1) mmol/L Chloride (98-107) mmol/L Carbon Dioxide (21-32) mmol/L Anion Gap (7-13) mEq/L BUN (7-18) mg/dL Creatinine (0.55-1.02) mg/dL Est Cr Clr Drug Dosing mL/min Estimated GFR (MDRD) BUN/Creatinine Ratio (No establ ref range) Glucose (70-99) mg/dL Calcium (8.5-10.1) mg/dL Total Bilirubin (0.2-1.0) mg/dL Direct Bilirubin (0.0-0.2) mg/dL AST (15-37) U/L ALT (14-59) U/L Alkaline Phosphatase (46-116) U/L Total Protein (6.4-8.2) g/dL Albumin (3.4-5.0) g/dL Globulin Albumin/Globulin Ratio Hep Bs Antigen Negative (Negative) Hepatitis C Antibody >11.0 H (0.0-0.9) s/co ratio Crossmatch See Detail 01/22/21 Range/Units 13:31 Sodium 137 (136-145) mmol/L Potassium 4.5 (3.5-5.1) mmol/L Chloride 104 (98-107) mmol/L Carbon Dioxide 24 (21-32) mmol/L Anion Gap 13.5 H (7-13) mEq/L BUN 12 (7-18) mg/dL Creatinine 0.75 (0.55-1.02) mg/dL Est Cr Clr Drug Dosing 113.45 mL/min Estimated GFR (MDRD) > 60 BUN/Creatinine Ratio 16.0 (No establ ref range) Glucose 81 (70-99) mg/dL Calcium 7.0 L D (8.5-10.1) mg/dL Total Bilirubin 0.1 L (0.2-1.0) mg/dL Direct Bilirubin < 0.1 (0.0-0.2) mg/dL AST 32 (15-37) U/L ALT 40 (14-59) U/L Alkaline Phosphatase 148 H (46-116) U/L Total Protein 5.3 L (6.4-8.2) g/dL Albumin 1.4 L (3.4-5.0) g/dL Globulin 3.9 Albumin/Globulin Ratio 0.36 Hep Bs Antigen (Negative) Hepatitis C Antibody (0.0-0.9) s/co ratio Crossmatch Micro Results - Last 24 Hours: Microbiology 01/19/21 18:37 Group B Streptococcus Culture - Final Vaginal/Rectal NEGATIVE STREP GROUP B Med Orders - Current: Current Medications Acetaminophen (Acetaminophen 325 Mg Tab) 650 mg PO Q6H PRN PRN Reason: Mild Pain (1-3) or Fever Benzocaine/Menthol (Benzocaine/Cetylpyridinium/Menthol Lozenge) 1 lozenge MUCMEM QID PRN PRN Reason: Sore Throat Last Admin: 01/22/21 21:29 Dose: 1 lozenge Documented by: Benzonatate (Benzonatate 100 Mg Cap) 100 mg PO Q6H PRN PRN Reason: Cough Last Admin: 01/23/21 06:03 Dose: 100 mg Documented by: Carboprost Tromethamine (Carboprost Tromethamine 250 Mcg/1 Ml Amp) 250 mcg IM ASDIRECTED PRN PRN Reason: Excessive vaginal bleeding Diphenhydramine HCl (Diphenhydramine 50 Mg/Ml Sdv) 25 mg IVPUSH Q6H PRN PRN Reason: Itching or Nausea Docusate Sodium (Docusate Sodium 100 Mg Cap) 100 mg PO Q12H PRN PRN Reason: Constipation Last Admin: 01/22/21 20:19 Dose: 100 mg Documented by: Ephedrine Sulfate (Ephedrine 50 Mg/Ml Sdv) 5 mg IVPUSH Q5M PRN PRN Reason: See Label Comments Ferrous Sulfate (Ferrous Sulfate 325 Mg Tab) 325 mg PO BIDMEALS [facility] Last Admin: 01/22/21 17:45 Dose: 325 mg Documented by: Oxytocin/Sodium Chloride (Pitocin In Ns 30 Unit/500 Ml) 30 unit in 500 mls @ 2 mls/hr IV TITRATE [facility]; Protocol Last Titration: 01/20/21 14:10 Dose: 0 munits/min, 0 mls/hr Documented by: Tranexamic Acid 1,000 mg/ (Sodium Chloride) 110 mls @ 660 mls/hr IV ONETIME PRN PRN Reason: Bleeding Remdesivir 100 mg/ Sodium (Chloride) 100 mls @ 100 mls/hr IV Q24H [facility] Stop: 01/26/21 09:59 Labetalol HCl (Labetalol 100 Mg Tab) 200 mg PO BID [facility] Last Admin: 01/22/21 21:29 Dose: 200 mg Documented by: Lidocaine HCl (Lidocaine 1% 30 Ml Sdv) 30 ml INJECT ASDIRECTED PRN PRN Reason: Perineal Repair Methylergonovine Maleate (Methylergonovine 0.2 Mg Tab) 0.2 mg PO ONETIME PRN PRN Reason: Excessive vaginal bleeding Metronidazole (Metronidazole 250 Mg Tab) 500 mg PO Q12HR [facility] Last Admin: 01/22/21 20:19 Dose: 500 mg Documented by: Misoprostol (Misoprostol 400 Mcg (4 X 100 Mcg Tab)) 800 mcg RECTAL ASDIRECTED PRN PRN Reason: Hemorrhage Nalbuphine HCl (Nalbuphine 10 Mg/1 Ml Vial) 20 mg IM ONETIME PRN PRN Reason: Pain Naloxone HCl (Naloxone 2 Mg/2 Ml Syringe) 0.1 mg IVPUSH SEECOMMENT PRN PRN Reason: Respiratory Depression Nicotine (Nicotine 14 Mg/24 Hr Patch) 14 mg TRDERM DAILY [facility] Last Admin: 01/22/21 21:30 Dose: Not Given Documented by: Ondansetron HCl (Ondansetron 4 Mg/2 Ml Sdv) 4 mg IVPUSH Q4H PRN PRN Reason: Nausea/Vomiting Oxycodone/Acetaminophen (Acetaminophen/Oxycodone 325-5 Mg Tab) 1 tab PO Q4H PRN PRN Reason: Pain (moderate 4-6) Last Admin: 01/21/21 16:55 Dose: 1 tab Documented by: Oxycodone/Acetaminophen (Acetaminophen/Oxycodone 325-5 Mg Tab) 2 tab PO Q4H PRN PRN Reason: Pain (moderate 4-6) Last Admin: 01/23/21 04:00 Dose: 2 tab Documented by: Oxytocin (Oxytocin 10 Units/1 Ml Sdv) 10 unit IM ONETIME PRN PRN Reason: Excessive vaginal bleeding Prenat Multivit/Sibley/Iron/Folic Ac ( Multivitamin With Calcium/Folic Acid/Iron Tab) 1 each PO DAILY [facility] Last Admin: 01/22/21 08:04 Dose: 1 each Documented by: Promethazine HCl (Promethazine 25 Mg/Ml Sdv) 12.5 mg IM Q6H PRN PRN Reason: Nausea/Vomiting Promethazine HCl/Codeine (Codeine/Promethazine 10-6.25 Mg/5 Ml Syrup 5 Ml Ud Cup) 5 ml PO Q6HR PRN PRN Reason: Cough Last Admin: 01/23/21 04:01 Dose: 5 ml Documented by: Simethicone (Simethicone 80 Mg Tab.Chew) 160 mg PO QID [facility] Last Admin: 01/22/21 20:19 Dose: 160 mg Documented by: Sodium Chloride (Sodium Chloride 0.9% 10 Ml Syringe) 10 ml FLUSH ASDIRECTED PRN PRN Reason: Keep Vein Open Discontinued Medications Acetaminophen (Acetaminophen 325 Mg Tab) 650 mg PO Q4H PRN PRN Reason: Pain/Fever Last Admin: 01/20/21 00:43 Dose: 650 mg Documented by: Azithromycin (Azithromycin 250 Mg Tab) 1,000 mg PO ONETIME ONE Stop: 01/21/21 14:58 Last Admin: 01/21/21 16:54 Dose: 1,000 mg Documented by: Citric Acid/Sodium Citrate (Citric Acid/Sodium Citrate Solution 30 Ml Cup) 30 ml PO ONETIME ONE Stop: 01/20/21 09:58 Last Admin: 01/20/21 11:33 Dose: Not Given Documented by: Dexamethasone (Dexamethasone 4 Mg/Ml Sdv) 8 mg IV .STK-MED ONE Stop: 01/20/21 11:01 Ephedrine Sulfate (Ephedrine 50 Mg/Ml Sdv) 25 mg IV .STK-MED ONE Stop: 01/20/21 11:01 Fentanyl (Fentanyl 100 Mcg/2 Ml Sdv) 100 mcg IV .STK-MED ONE Stop: 01/20/21 11:01 Hydralazine HCl (Hydralazine 20 Mg/Ml Sdv) Confirm Administered Dose 20 mg .ROUTE .STK-MED ONE Stop: 01/20/21 06:21 Last Admin: 01/20/21 06:42 Dose: Not Given Documented by: Hydralazine HCl (Hydralazine 20 Mg/Ml Sdv) 5 mg IVPUSH ONETIME ONE Stop: 01/20/21 06:24 Last Admin: 01/20/21 06:25 Dose: 5 mg Documented by: Magnesium Sulfate 4 gm/ Premix 100 mls @ 300 mls/hr IV BOLUS ONE Stop: 01/19/21 16:34 Last Admin: 01/19/21 16:46 Dose: 300 mls/hr Documented by: Magnesium Sulfate (Magnesium Sulfate In Water 20 Gm/500 Ml) 20 gm in 500 mls @ 50 mls/hr IV ASDIRECTED [facility] Last Admin: 01/21/21 07:07 Dose: 50 mls/hr Documented by: Lactated Ringer's (Ringers, Lactated) 500 mls @ 999 mls/hr IV SEECOMMENT [facility] Lactated Ringer's (Ringers, Lactated) 500 mls @ 999 mls/hr IV .BOLUS [facility] Lactated Ringer's (Ringers, Lactated) 1,000 mls @ 125 mls/hr IV ASDIRECTED [facility] Last Admin: 01/20/21 15:58 Dose: 125 mls/hr Documented by: Penicillin G Potassium 3 (millunits/ Sodium Chloride) 100 mls @ 200 mls/hr IV Q4H [facility] Penicillin G Potassium 5 (millunits/ Sodium Chloride) 100 mls @ 200 mls/hr IV ONETIME ONE Stop: 01/20/21 09:29 Last Admin: 01/20/21 09:26 Dose: 200 mls/hr Documented by: Cefazolin Sodium/Dextrose (Ancef 2 Gm/50 Ml) Confirm Administered Dose 50 mls @ as directed .ROUTE .[facility]-MED ONE Stop: 01/20/21 09:48 Oxytocin/Sodium Chloride (Pitocin In Ns 30 Unit/500 Ml) Confirm Administered Dose 60 unit in 1,000 mls @ as directed .ROUTE .[facility]-MED ONE Stop: 01/20/21 09:48 Lactated Ringer's (Ringers, Lactated) 1,000 mls @ 500 mls/hr IV .BOLUS [facility] Cefazolin Sodium/Dextrose 2 gm (/ Premix) 50 mls @ 100 mls/hr IV ONETIME ONE Stop: 01/20/21 11:29 Last Admin: 01/20/21 10:15 Dose: 100 mls/hr Documented by: Tranexamic Acid 1,000 mg/ (Sodium Chloride) 110 mls @ as directed IV .[facility]-MED ONE Stop: 01/20/21 11:01 Lactated Ringer's (Ringers, Lactated) 1,000 mls @ as directed IV .[facility]-MED ONE Stop: 01/20/21 11:01 Oxytocin/Sodium Chloride (Pitocin In Ns 30 Unit/500 Ml) 30 unit in 500 mls @ as directed IV .[facility]-MED ONE Stop: 01/21/21 12:26 Remdesivir 200 mg/ Sodium (Chloride) 250 mls @ 250 mls/hr IV ONETIME ONE Stop: 01/22/21 14:59 Last Infusion: 01/22/21 16:40 Dose: Infused Documented by: Ketorolac Tromethamine (Ketorolac 30 Mg/Ml Sdv) 15 mg IVPUSH Q6H [facility] Stop: 01/21/21 05:31 Last Admin: 01/21/21 05:49 Dose: 15 mg Documented by: Labetalol HCl (Labetalol 20 Mg/4 Ml Syringe) 10 mg IVPUSH ONETIME ONE Stop: 01/19/21 16:14 Last Admin: 01/19/21 17:24 Dose: Not Given Documented by: Labetalol HCl (Labetalol 20 Mg/4 Ml Syringe) 10 mg IVPUSH ONETIME ONE Stop: 01/19/21 16:16 Last Admin: 01/19/21 16:37 Dose: 10 mg Documented by: Labetalol HCl (Labetalol 20 Mg/4 Ml Syringe) 0 mg IV ASDIRECTED PRN PRN Reason: HIGH BLOOD PRESSURE Last Admin: 01/20/21 05:36 Dose: 20 mg Documented by: Labetalol HCl (Labetalol 20 Mg/4 Ml Syringe) 40 mg IVPUSH ONETIME ONE Stop: 01/20/21 07:10 Last Admin: 01/20/21 07:18 Dose: 40 mg Documented by: Labetalol HCl (Labetalol 100 Mg Tab) 200 mg PO TID [facility] Last Admin: 01/20/21 08:38 Dose: 200 mg Documented by: Labetalol HCl (Labetalol 100 Mg Tab) 200 mg PO TID [facility] Last Admin: 01/21/21 15:10 Dose: Not Given Documented by: Labetalol HCl (Labetalol 100 Mg Tab) 200 mg PO ONETIME ONE Stop: 01/22/21 04:28 Last Admin: 01/22/21 04:32 Dose: 200 mg Documented by: Measles/Mumps/Rubella Vaccine Live (Measles, Mumps & Rubella Vaccine 0.5 Ml Sdv) 0.5 ml SUBCUT .ONCE ONE Stop: 01/21/21 09:44 Last Admin: 01/21/21 12:24 Dose: 0.5 ml Documented by: Misoprostol (Misoprostol 25 Mcg (1/4 Of 100 Mcg) Tab) 25 mcg VAG ONETIME ONE Stop: 01/19/21 18:50 Last Admin: 01/19/21 19:47 Dose: 25 mcg Documented by: Misoprostol (Misoprostol 25 Mcg (1/4 Of 100 Mcg) Tab) 25 mcg VAG Q4H PRN PRN Reason: Other Last Admin: 01/20/21 03:50 Dose: 25 mcg Documented by: Morphine Sulfate (Morphine Pf 10 Mg/10 Ml Sdv) 0.2 mg .XX .STK-MED ONE Stop: 01/20/21 11:01 Naloxone HCl (Naloxone 2 Mg/2 Ml Syringe) 0.1 mg IVPUSH SEECOMMENT PRN PRN Reason: Respiratory Depression Ondansetron HCl (Ondansetron 4 Mg/2 Ml Sdv) 4 mg IV .STK-MED ONE Stop: 01/20/21 11:01 - My Orders Last 24 Hours: My Active Orders 01/22/21 Dinner Regular Diet [DIET] 01/22/21 20:35 Benzocaine/Cetylpyrd/Menthol [Cepacol Sore Throat] 1 lozenge MUCMEM QID PRN 01/22/21 20:42 Benzonatate [Tessalon Perles] 100 mg PO Q6H PRN Codeine/Promethazine [Phenergan with Codeine] 5 ml PO Q6HR PRN 01/22/21 20:45 Nicotine [Habitrol] 14 mg TRDERM DAILY 01/22/21 21:00 Labetalol [Normodyne] 200 mg PO BID - Plan Plan:: Patient is post day 1 from primary due to vaginal bleeding, severe preeclampsia. She was on magnesium 24 hours post . Blood pressures have improved. She's needed a couple oral doses of labetalol. Will continue her on 200 mg Labetalol BID. She is COVID positive and became febrile in the afternoon. She started experiencing a cough, congestion. Denies SOB and vitals are stable otherwise. Given her post status, hx of meth use, tobacco use, severe preeclampsia, s/p , and new statistics that and post women with COVID have 70% increased risk of mortality, recommended Remdesivir treatment. Approval was also given by our [place], Dr. Dillon. This will be started and given for 5 days if necessary. She will also have tessalon pearls and cough syrup available as needed. Will monitor CBC and CMP daily. We will have a low threshold to do imaging and further work up if she deteriorates. Betty Coppola MD
[2021-01-22] MEDS ORDERED: REMDESIVIR 200 MG in Sodium Chloride 0.9% 250 ML IV ONE ×2 (12:39→14:00)
--- NOTE | 2021-01-22 13:05 | PCM.PN ---
<Miranda Millan - Last Filed: 01/23/21 08:43> - General Info Date of Service: 01/22/21 Admission Dx/Problem (Free Text): Patient Status Order with Admit Dx/Problem 01/19/21 16:10 Patient Status [ADT] Routine Admission Diagnosis/Problem Admission Diagnosis/Problem Gestational hypertension Subjective Update: Anders developed a fever, increased pain, shortness of breath and cough. - Patient Data Vitals - Most Recent: Last Vital Signs Temp 101 F H 01/22/21 12:00 Pulse 89 01/22/21 12:00 Resp 18 01/22/21 12:00 BP 138/85 01/22/21 12:00 Pulse Ox 99 01/22/21 12:00 Weight - Most Recent: 84.822 kg I&O - Last 24 Hours: Intake & Output 01/21/21 01/22/21 01/22/21 22:59 06:59 14:59 Output Total 1000 Balance -1000 Lab Results Last 24 Hours: Laboratory Results - last 24 hr 01/19/21 01/19/21 Range/Units 16:25 16:25 Hep Bs Antigen Negative (Negative) Hepatitis C Antibody >11.0 H (0.0-0.9) s/co ratio Grant Results Last 24 Hours: Microbiology 01/19/21 18:37 Group B Streptococcus Culture - Final Vaginal/Rectal NEGATIVE STREP GROUP B Med Orders - Current: Current Medications Acetaminophen (Acetaminophen 325 Mg Tab) 650 mg PO Q6H PRN PRN Reason: Mild Pain (1-3) or Fever Carboprost Tromethamine (Carboprost Tromethamine 250 Mcg/1 Ml Amp) 250 mcg IM ASDIRECTED PRN PRN Reason: Excessive vaginal bleeding Diphenhydramine HCl (Diphenhydramine 50 Mg/Ml Sdv) 25 mg IVPUSH Q6H PRN PRN Reason: Itching or Nausea Docusate Sodium (Docusate Sodium 100 Mg Cap) 100 mg PO Q12H PRN PRN Reason: Constipation Last Admin: 01/22/21 08:04 Dose: 100 mg Documented by: Ephedrine Sulfate (Ephedrine 50 Mg/Ml Sdv) 5 mg IVPUSH Q5M PRN PRN Reason: See Label Comments Ferrous Sulfate (Ferrous Sulfate 325 Mg Tab) 325 mg PO BIDMEALS JEMAL Last Admin: 01/22/21 08:04 Dose: 325 mg Documented by: Lactated Ringer's (Ringers, Lactated) 500 mls @ 999 mls/hr IV SEECOMMENT [facility] Lactated Ringer's (Ringers, Lactated) 1,000 mls @ 125 mls/hr IV ASDIRECTED [facility] Last Admin: 01/20/21 15:58 Dose: 125 mls/hr Documented by: Oxytocin/Sodium Chloride (Pitocin In Ns 30 Unit/500 Ml) 30 unit in 500 mls @ 2 mls/hr IV TITRATE [facility]; Protocol Last Titration: 01/20/21 14:10 Dose: 0 munits/min, 0 mls/hr Documented by: Tranexamic Acid 1,000 mg/ (Sodium Chloride) 110 mls @ 660 mls/hr IV ONETIME PRN PRN Reason: Bleeding Lactated Ringer's (Ringers, Lactated) 1,000 mls @ 500 mls/hr IV .BOLUS [facility] Lidocaine HCl (Lidocaine 1% 30 Ml Sdv) 30 ml INJECT ASDIRECTED PRN PRN Reason: Perineal Repair Methylergonovine Maleate (Methylergonovine 0.2 Mg Tab) 0.2 mg PO ONETIME PRN PRN Reason: Excessive vaginal bleeding Metronidazole (Metronidazole 250 Mg Tab) 500 mg PO Q12HR [facility] Last Admin: 01/22/21 08:04 Dose: 500 mg Documented by: Misoprostol (Misoprostol 400 Mcg (4 X 100 Mcg Tab)) 800 mcg RECTAL ASDIRECTED PRN PRN Reason: Hemorrhage Nalbuphine HCl (Nalbuphine 10 Mg/1 Ml Vial) 20 mg IM ONETIME PRN PRN Reason: Pain Naloxone HCl (Naloxone 2 Mg/2 Ml Syringe) 0.1 mg IVPUSH SEECOMMENT PRN PRN Reason: Respiratory Depression Ondansetron HCl (Ondansetron 4 Mg/2 Ml Sdv) 4 mg IVPUSH Q4H PRN PRN Reason: Nausea/Vomiting Oxycodone/Acetaminophen (Acetaminophen/Oxycodone 325-5 Mg Tab) 1 tab PO Q4H PRN PRN Reason: Pain (moderate 4-6) Last Admin: 01/21/21 16:55 Dose: 1 tab Documented by: Oxycodone/Acetaminophen (Acetaminophen/Oxycodone 325-5 Mg Tab) 2 tab PO Q4H PRN PRN Reason: Pain (moderate 4-6) Last Admin: 01/22/21 12:17 Dose: 2 tab Documented by: Oxytocin (Oxytocin 10 Units/1 Ml Sdv) 10 unit IM ONETIME PRN PRN Reason: Excessive vaginal bleeding Prenat Multivit/[place]/Iron/Folic Ac ( Multivitamin With Calcium/Folic Acid/Iron Tab) 1 each PO DAILY [facility] Last Admin: 01/22/21 08:04 Dose: 1 each Documented by: Promethazine HCl (Promethazine 25 Mg/Ml Sdv) 12.5 mg IM Q6H PRN PRN Reason: Nausea/Vomiting Simethicone (Simethicone 80 Mg Tab.Chew) 160 mg PO QID [facility] Last Admin: 01/22/21 12:18 Dose: 160 mg Documented by: Sodium Chloride (Sodium Chloride 0.9% 10 Ml Syringe) 10 ml FLUSH ASDIRECTED PRN PRN Reason: Keep Vein Open Discontinued Medications Acetaminophen (Acetaminophen 325 Mg Tab) 650 mg PO Q4H PRN PRN Reason: Pain/Fever Last Admin: 01/20/21 00:43 Dose: 650 mg Documented by: Azithromycin (Azithromycin 250 Mg Tab) 1,000 mg PO ONETIME ONE Stop: 01/21/21 14:58 Last Admin: 01/21/21 16:54 Dose: 1,000 mg Documented by: Citric Acid/Sodium Citrate (Citric Acid/Sodium Citrate Solution 30 Ml Cup) 30 ml PO ONETIME ONE Stop: 01/20/21 09:58 Last Admin: 01/20/21 11:33 Dose: Not Given Documented by: Dexamethasone (Dexamethasone 4 Mg/Ml Sdv) 8 mg IV .STK-MED ONE Stop: 01/20/21 11:01 Ephedrine Sulfate (Ephedrine 50 Mg/Ml Sdv) 25 mg IV .STK-MED ONE Stop: 01/20/21 11:01 Fentanyl (Fentanyl 100 Mcg/2 Ml Sdv) 100 mcg IV .STK-MED ONE Stop: 01/20/21 11:01 Hydralazine HCl (Hydralazine 20 Mg/Ml Sdv) Confirm Administered Dose 20 mg .ROUTE .STK-MED ONE Stop: 01/20/21 06:21 Last Admin: 01/20/21 06:42 Dose: Not Given Documented by: Hydralazine HCl (Hydralazine 20 Mg/Ml Sdv) 5 mg IVPUSH ONETIME ONE Stop: 01/20/21 06:24 Last Admin: 01/20/21 06:25 Dose: 5 mg Documented by: Magnesium Sulfate 4 gm/ Premix 100 mls @ 300 mls/hr IV BOLUS ONE Stop: 01/19/21 16:34 Last Admin: 01/19/21 16:46 Dose: 300 mls/hr Documented by: Magnesium Sulfate (Magnesium Sulfate In Water 20 Gm/500 Ml) 20 gm in 500 mls @ 50 mls/hr IV ASDIRECTED JEMAL Last Admin: 01/21/21 07:07 Dose: 50 mls/hr Documented by: Lactated Ringer's (Ringers, Lactated) 500 mls @ 999 mls/hr IV .BOLUS JEMAL Penicillin G Potassium 3 (millunits/ Sodium Chloride) 100 mls @ 200 mls/hr IV Q4H JEMAL Penicillin G Potassium 5 (millunits/ Sodium Chloride) 100 mls @ 200 mls/hr IV ONETIME ONE Stop: 01/20/21 09:29 Last Admin: 01/20/21 09:26 Dose: 200 mls/hr Documented by: Cefazolin Sodium/Dextrose (Ancef 2 Gm/50 Ml) Confirm Administered Dose 50 mls @ as directed .ROUTE .STK-MED ONE Stop: 01/20/21 09:48 Oxytocin/Sodium Chloride (Pitocin In Ns 30 Unit/500 Ml) Confirm Administered Dose 60 unit in 1,000 mls @ as directed .ROUTE .STK-MED ONE Stop: 01/20/21 09:48 Cefazolin Sodium/Dextrose 2 gm (/ Premix) 50 mls @ 100 mls/hr IV ONETIME ONE Stop: 01/20/21 11:29 Last Admin: 01/20/21 10:15 Dose: 100 mls/hr Documented by: Tranexamic Acid 1,000 mg/ (Sodium Chloride) 110 mls @ as directed IV .STK-MED ONE Stop: 01/20/21 11:01 Lactated Ringer's (Ringers, Lactated) 1,000 mls @ as directed IV .STK-MED ONE Stop: 01/20/21 11:01 Oxytocin/Sodium Chloride (Pitocin In Ns 30 Unit/500 Ml) 30 unit in 500 mls @ as directed IV .STK-MED ONE Stop: 01/21/21 12:26 Ketorolac Tromethamine (Ketorolac 30 Mg/Ml Sdv) 15 mg IVPUSH Q6H [facility] Stop: 01/21/21 05:31 Last Admin: 01/21/21 05:49 Dose: 15 mg Documented by: Labetalol HCl (Labetalol 20 Mg/4 Ml Syringe) 10 mg IVPUSH ONETIME ONE Stop: 01/19/21 16:14 Last Admin: 01/19/21 17:24 Dose: Not Given Documented by: Labetalol HCl (Labetalol 20 Mg/4 Ml Syringe) 10 mg IVPUSH ONETIME ONE Stop: 01/19/21 16:16 Last Admin: 01/19/21 16:37 Dose: 10 mg Documented by: Labetalol HCl (Labetalol 20 Mg/4 Ml Syringe) 0 mg IV ASDIRECTED PRN PRN Reason: HIGH BLOOD PRESSURE Last Admin: 01/20/21 05:36 Dose: 20 mg Documented by: Labetalol HCl (Labetalol 20 Mg/4 Ml Syringe) 40 mg IVPUSH ONETIME ONE Stop: 01/20/21 07:10 Last Admin: 01/20/21 07:18 Dose: 40 mg Documented by: Labetalol HCl (Labetalol 100 Mg Tab) 200 mg PO TID [facility] Last Admin: 01/20/21 08:38 Dose: 200 mg Documented by: Labetalol HCl (Labetalol 100 Mg Tab) 200 mg PO TID [facility] Last Admin: 01/21/21 15:10 Dose: Not Given Documented by: Labetalol HCl (Labetalol 100 Mg Tab) 200 mg PO ONETIME ONE Stop: 01/22/21 04:28 Last Admin: 01/22/21 04:32 Dose: 200 mg Documented by: Measles/Mumps/Rubella Vaccine Live (Measles, Mumps & Rubella Vaccine 0.5 Ml Sdv) 0.5 ml SUBCUT .ONCE ONE Stop: 01/21/21 09:44 Last Admin: 01/21/21 12:24 Dose: 0.5 ml Documented by: Misoprostol (Misoprostol 25 Mcg (1/4 Of 100 Mcg) Tab) 25 mcg VAG ONETIME ONE Stop: 01/19/21 18:50 Last Admin: 01/19/21 19:47 Dose: 25 mcg Documented by: Misoprostol (Misoprostol 25 Mcg (1/4 Of 100 Mcg) Tab) 25 mcg VAG Q4H PRN PRN Reason: Other Last Admin: 01/20/21 03:50 Dose: 25 mcg Documented by: Morphine Sulfate (Morphine Pf 10 Mg/10 Ml Sdv) 0.2 mg .XX .STK-MED ONE Stop: 01/20/21 11:01 Naloxone HCl (Naloxone 2 Mg/2 Ml Syringe) 0.1 mg IVPUSH SEECOMMENT PRN PRN Reason: Respiratory Depression Ondansetron HCl (Ondansetron 4 Mg/2 Ml Sdv) 4 mg IV .STK-MED ONE Stop: 01/20/21 11:01 - Exam Urinary Catheter Total Time: 1Days 9Hours General: Oriented, Sedated HEENT: Pupils Equal, Pupils Reactive, EOMI, Mucous Membr. Moist/[place] Neck: Supple Lungs: Clear to Auscultation, Normal Respiratory Effort Cardiovascular: Regular Rate, Regular Rhythm GI/Abdominal Exam: Normal Bowel Sounds, Soft Back Exam: Normal Inspection, Full Range of Motion Extremities: Normal Inspection, Normal Range of Motion, No Pedal Edema Skin: Warm, Dry, Intact Wound/Incisions: Healing Well Neurological: No New Focal Deficit Psy/Mental Status: Alert, Normal Affect, Normal Mood - Patient Data Lab Results Last 24 hrs: Laboratory Results - last 24 hr 01/19/21 01/19/21 Range/Units 16:25 16:25 Hep Bs Antigen Negative (Negative) Hepatitis C Antibody >11.0 H (0.0-0.9) s/co ratio Result Diagrams: 01/21/21 06:17 01/22/21 13:31 Grant Results Last 24 hrs: Microbiology 01/19/21 18:37 Group B Streptococcus Culture - Final Vaginal/Rectal NEGATIVE STREP GROUP B Sepsis Event Note - Evaluation Sepsis Screening Result: No Definite Risk - Focused Exam Vital Signs: Vital Signs Temp Pulse Pulse Resp BP BP BP 01/22/21 12:00 101 F H 89 18 138/85 01/22/21 08:00 99.3 F 85 18 132/75 01/22/21 05:47 82 16 115/71 01/22/21 04:32 87 153/96 H 01/22/21 04:00 98.7 F 87 16 153/96 H Pulse Ox 01/22/21 12:00 99 09/30/21 08:00 01/22/21 05:47 01/22/21 04:32 01/22/21 04:00 - Problem List & Annotations (1) COVID-19 SNOMED Code(s): 273012799 Code(s): U07.1 - COVID-19 Status: Acute Current Visit: Yes Annotation/Comment:: -Currently asymptomatic -Contact and airborne precautions -Monitor for symptoms - Problem List Review Problem List Initiated/Reviewed/Updated: Yes - My Orders Last 24 Hours: My Active Orders 01/22/21 12:39 BILIRUBIN DIRECT [CHEM] Stat COMPREHENSIVE METABOLIC PN,CMP [CHEM] Stat - Assessment Assessment:: plan for CBC in the morning. Suspect she is now symptomatic from covid i nfection. Remdesivir started - will follow liver enzymes & bilirubin - Plan Plan:: Induction of labor for severe preeclampsia, BP stable on labetolol Meth and THC positive. Social work consulted COVID positive - remdesivir given <Betty Coppola - Last Filed: 01/23/21 16:21> - Patient Data Vitals - Most Recent: Last Vital Signs Temp 98.2 F 01/23/21 12:00 Pulse 85 01/23/21 12:00 Resp 16 01/23/21 12:00 BP 145/95 H 01/23/21 12:00 Pulse Ox 98 01/23/21 12:00 Lab Results Last 24 Hours: Laboratory Results - last 24 hr 01/19/21 Range/Units 16:25 Crossmatch See Detail Med Orders - Current: Current Medications Acetaminophen (Acetaminophen 325 Mg Tab) 650 mg PO Q6H PRN PRN Reason: Mild Pain (1-3) or Fever Benzocaine/Menthol (Benzocaine/Cetylpyridinium/Menthol Lozenge) 1 lozenge MUCMEM QID PRN PRN Reason: Sore Throat Last Admin: 01/22/21 21:29 Dose: 1 lozenge Documented by: Benzonatate (Benzonatate 100 Mg Cap) 100 mg PO Q6H PRN PRN Reason: Cough Last Admin: 01/23/21 06:03 Dose: 100 mg Documented by: Carboprost Tromethamine (Carboprost Tromethamine 250 Mcg/1 Ml Amp) 250 mcg IM ASDIRECTED PRN PRN Reason: Excessive vaginal bleeding Diphenhydramine HCl (Diphenhydramine 50 Mg/Ml Sdv) 25 mg IVPUSH Q6H PRN PRN Reason: Itching or Nausea Docusate Sodium (Docusate Sodium 100 Mg Cap) 100 mg PO Q12H PRN PRN Reason: Constipation Last Admin: 01/22/21 20:19 Dose: 100 mg Documented by: Ephedrine Sulfate (Ephedrine 50 Mg/Ml Sdv) 5 mg IVPUSH Q5M PRN PRN Reason: See Label Comments Ferrous Sulfate (Ferrous Sulfate 325 Mg Tab) 325 mg PO BIDMEALS [facility] Last Admin: 01/23/21 08:56 Dose: 325 mg Documented by: Oxytocin/Sodium Chloride (Pitocin In Ns 30 Unit/500 Ml) 30 unit in 500 mls @ 2 mls/hr IV TITRATE [facility]; Protocol Last Titration: 01/20/21 14:10 Dose: 0 munits/min, 0 mls/hr Documented by: Tranexamic Acid 1,000 mg/ (Sodium Chloride) 110 mls @ 660 mls/hr IV ONETIME PRN PRN Reason: Bleeding Remdesivir 100 mg/ Sodium (Chloride) 100 mls @ 100 mls/hr IV Q24H [facility] Stop: 01/26/21 09:59 Last Infusion: 01/23/21 10:40 Dose: Infused Documented by: Labetalol HCl (Labetalol 100 Mg Tab) 200 mg PO BID [facility] Last Admin: 01/23/21 08:55 Dose: 200 mg Documented by: Lidocaine HCl (Lidocaine 1% 30 Ml Sdv) 30 ml INJECT ASDIRECTED PRN PRN Reason: Perineal Repair Methylergonovine Maleate (Methylergonovine 0.2 Mg Tab) 0.2 mg PO ONETIME PRN PRN Reason: Excessive vaginal bleeding Metronidazole (Metronidazole 250 Mg Tab) 500 mg PO Q12HR [facility] Last Admin: 01/23/21 08:56 Dose: 500 mg Documented by: Misoprostol (Misoprostol 400 Mcg (4 X 100 Mcg Tab)) 800 mcg RECTAL ASDIRECTED PRN PRN Reason: Hemorrhage Nalbuphine HCl (Nalbuphine 10 Mg/1 Ml Vial) 20 mg IM ONETIME PRN PRN Reason: Pain Naloxone HCl (Naloxone 2 Mg/2 Ml Syringe) 0.1 mg IVPUSH SEECOMMENT PRN PRN Reason: Respiratory Depression Nicotine (Nicotine 14 Mg/24 Hr Patch) 14 mg TRDERM DAILY [facility] Last Admin: 01/23/21 08:56 Dose: Not Given Documented by: Ondansetron HCl (Ondansetron 4 Mg/2 Ml Sdv) 4 mg IVPUSH Q4H PRN PRN Reason: Nausea/Vomiting Oxycodone/Acetaminophen (Acetaminophen/Oxycodone 325-5 Mg Tab) 1 tab PO Q4H PRN PRN Reason: Pain (moderate 4-6) Last Admin: 01/21/21 16:55 Dose: 1 tab Documented by: Oxycodone/Acetaminophen (Acetaminophen/Oxycodone 325-5 Mg Tab) 2 tab PO Q4H PRN PRN Reason: Pain (moderate 4-6) Last Admin: 01/23/21 12:58 Dose: 2 tab Documented by: Oxytocin (Oxytocin 10 Units/1 Ml Sdv) 10 unit IM ONETIME PRN PRN Reason: Excessive vaginal bleeding Prenat Multivit/[place]/Iron/Folic Ac ( Multivitamin With Calcium/Folic Acid/Iron Tab) 1 each PO DAILY [facility] Last Admin: 01/23/21 08:56 Dose: 1 each Documented by: Promethazine HCl (Promethazine 25 Mg/Ml Sdv) 12.5 mg IM Q6H PRN PRN Reason: Nausea/Vomiting Promethazine HCl/Codeine (Codeine/Promethazine 10-6.25 Mg/5 Ml Syrup 5 Ml Ud Cup) 5 ml PO Q6HR PRN PRN Reason: Cough Last Admin: 01/23/21 04:01 Dose: 5 ml Documented by: Simethicone (Simethicone 80 Mg Tab.Chew) 160 mg PO QID [facility] Last Admin: 01/23/21 12:54 Dose: 160 mg Documented by: Sodium Chloride (Sodium Chloride 0.9% 10 Ml Syringe) 10 ml FLUSH ASDIRECTED PRN PRN Reason: Keep Vein Open Discontinued Medications Acetaminophen (Acetaminophen 325 Mg Tab) 650 mg PO Q4H PRN PRN Reason: Pain/Fever Last Admin: 01/20/21 00:43 Dose: 650 mg Documented by: Azithromycin (Azithromycin 250 Mg Tab) 1,000 mg PO ONETIME ONE Stop: 01/21/21 14:58 Last Admin: 01/21/21 16:54 Dose: 1,000 mg Documented by: Citric Acid/Sodium Citrate (Citric Acid/Sodium Citrate Solution 30 Ml Cup) 30 ml PO ONETIME ONE Stop: 01/20/21 09:58 Last Admin: 01/20/21 11:33 Dose: Not Given Documented by: Dexamethasone (Dexamethasone 4 Mg/Ml Sdv) 8 mg IV .STK-MED ONE Stop: 01/20/21 11:01 Ephedrine Sulfate (Ephedrine 50 Mg/Ml Sdv) 25 mg IV .STK-MED ONE Stop: 01/20/21 11:01 Fentanyl (Fentanyl 100 Mcg/2 Ml Sdv) 100 mcg IV .STK-MED ONE Stop: 01/20/21 11:01 Hydralazine HCl (Hydralazine 20 Mg/Ml Sdv) Confirm Administered Dose 20 mg .ROUTE .STK-MED ONE Stop: 01/20/21 06:21 Last Admin: 01/20/21 06:42 Dose: Not Given Documented by: Hydralazine HCl (Hydralazine 20 Mg/Ml Sdv) 5 mg IVPUSH ONETIME ONE Stop: 01/20/21 06:24 Last Admin: 01/20/21 06:25 Dose: 5 mg Documented by: Magnesium Sulfate 4 gm/ Premix 100 mls @ 300 mls/hr IV BOLUS ONE Stop: 01/19/21 16:34 Last Admin: 01/19/21 16:46 Dose: 300 mls/hr Documented by: Magnesium Sulfate (Magnesium Sulfate In Water 20 Gm/500 Ml) 20 gm in 500 mls @ 50 mls/hr IV ASDIRECTED [facility] Last Admin: 01/21/21 07:07 Dose: 50 mls/hr Documented by: Lactated Ringer's (Ringers, Lactated) 500 mls @ 999 mls/hr IV SEECOMMENT [facility] Lactated Ringer's (Ringers, Lactated) 500 mls @ 999 mls/hr IV .BOLUS [facility] Lactated Ringer's (Ringers, Lactated) 1,000 mls @ 125 mls/hr IV ASDIRECTED [facility] Last Admin: 01/20/21 15:58 Dose: 125 mls/hr Documented by: Penicillin G Potassium 3 (millunits/ Sodium Chloride) 100 mls @ 200 mls/hr IV Q4H JEM[facility] Penicillin G Potassium 5 (millunits/ Sodium Chloride) 100 mls @ 200 mls/hr IV ONETIME ONE Stop: 01/20/21 09:29 Last Admin: 01/20/21 09:26 Dose: 200 mls/hr Documented by: Cefazolin Sodium/Dextrose (Ancef 2 Gm/50 Ml) Confirm Administered Dose 50 mls @ as directed .ROUTE .STK-MED ONE Stop: 01/20/21 09:48 Oxytocin/Sodium Chloride (Pitocin In Ns 30 Unit/500 Ml) Confirm Administered Dose 60 unit in 1,000 mls @ as directed .ROUTE .ST-MED ONE Stop: 01/20/21 09:48 Lactated Ringer's (Ringers, Lactated) 1,000 mls @ 500 mls/hr IV .BOLUS JEMAL Cefazolin Sodium/Dextrose 2 gm (/ Premix) 50 mls @ 100 mls/hr IV ONETIME ONE Stop: 01/20/21 11:29 Last Admin: 01/20/21 10:15 Dose: 100 mls/hr Documented by: Tranexamic Acid 1,000 mg/ (Sodium Chloride) 110 mls @ as directed IV .STK-MED ONE Stop: 01/20/21 11:01 Lactated Ringer's (Ringers, Lactated) 1,000 mls @ as directed IV .ST-MED ONE Stop: 01/20/21 11:01 Oxytocin/Sodium Chloride (Pitocin In Ns 30 Unit/500 Ml) 30 unit in 500 mls @ as directed IV .STK-MED ONE Stop: 01/21/21 12:26 Remdesivir 200 mg/ Sodium (Chloride) 250 mls @ 250 mls/hr IV ONETIME ONE Stop: 01/22/21 14:59 Last Infusion: 01/22/21 16:40 Dose: Infused Documented by: Ketorolac Tromethamine (Ketorolac 30 Mg/Ml Sdv) 15 mg IVPUSH Q6H [facility] Stop: 01/21/21 05:31 Last Admin: 01/21/21 05:49 Dose: 15 mg Documented by: Labetalol HCl (Labetalol 20 Mg/4 Ml Syringe) 10 mg IVPUSH ONETIME ONE Stop: 01/19/21 16:14 Last Admin: 01/19/21 17:24 Dose: Not Given Documented by: Labetalol HCl (Labetalol 20 Mg/4 Ml Syringe) 10 mg IVPUSH ONETIME ONE Stop: 01/19/21 16:16 Last Admin: 01/19/21 16:37 Dose: 10 mg Documented by: Labetalol HCl (Labetalol 20 Mg/4 Ml Syringe) 0 mg IV ASDIRECTED PRN PRN Reason: HIGH BLOOD PRESSURE Last Admin: 01/20/21 05:36 Dose: 20 mg Documented by: Labetalol HCl (Labetalol 20 Mg/4 Ml Syringe) 40 mg IVPUSH ONETIME ONE Stop: 01/20/21 07:10 Last Admin: 01/20/21 07:18 Dose: 40 mg Documented by: Labetalol HCl (Labetalol 100 Mg Tab) 200 mg PO TID [facility] Last Admin: 01/20/21 08:38 Dose: 200 mg Documented by: Labetalol HCl (Labetalol 100 Mg Tab) 200 mg PO TID [facility] Last Admin: 01/21/21 15:10 Dose: Not Given Documented by: Labetalol HCl (Labetalol 100 Mg Tab) 200 mg PO ONETIME ONE Stop: 01/22/21 04:28 Last Admin: 01/22/21 04:32 Dose: 200 mg Documented by: Measles/Mumps/Rubella Vaccine Live (Measles, Mumps & Rubella Vaccine 0.5 Ml Sdv) 0.5 ml SUBCUT .ONCE ONE Stop: 01/21/21 09:44 Last Admin: 01/21/21 12:24 Dose: 0.5 ml Documented by: Misoprostol (Misoprostol 25 Mcg (1/4 Of 100 Mcg) Tab) 25 mcg VAG ONETIME ONE Stop: 01/19/21 18:50 Last Admin: 01/19/21 19:47 Dose: 25 mcg Documented by: Misoprostol (Misoprostol 25 Mcg (1/4 Of 100 Mcg) Tab) 25 mcg VAG Q4H PRN PRN Reason: Other Last Admin: 01/20/21 03:50 Dose: 25 mcg Documented by: Morphine Sulfate (Morphine Pf 10 Mg/10 Ml Sdv) 0.2 mg .XX .STK-MED ONE Stop: 01/20/21 11:01 Naloxone HCl (Naloxone 2 Mg/2 Ml Syringe) 0.1 mg IVPUSH SEECOMMENT PRN PRN Reason: Respiratory Depression Ondansetron HCl (Ondansetron 4 Mg/2 Ml Sdv) 4 mg IV .STK-MED ONE Stop: 01/20/21 11:01 - Patient Data Lab Results Last 24 hrs: Laboratory Results - last 24 hr 01/19/21 Range/Units 16:25 Crossmatch See Detail Result Diagrams: 01/21/21 06:17 01/22/21 13:31 Sepsis Event Note - Focused Exam Vital Signs: Vital Signs Temp Pulse Pulse Resp BP BP Pulse Ox 01/23/21 12:00 98.2 F 85 16 145/95 H 98 01/23/21 08:55 94 146/92 H 01/23/21 08:00 98.7 F 94 16 146/92 H 97 01/23/21 06:03 98.1 F 104 H 16 141/80 H 97 - My Orders Last 24 Hours: My Active Orders 01/22/21 Dinner Regular Diet [DIET] 01/22/21 20:35 Benzocaine/Cetylpyrd/Menthol [Cepacol Sore Throat] 1 lozenge MUCMEM QID PRN 01/22/21 20:42 Benzonatate [Tessalon Perles] 100 mg PO Q6H PRN Codeine/Promethazine [Phenergan with Codeine] 5 ml PO Q6HR PRN 01/22/21 20:45 Nicotine [Habitrol] 14 mg TRDERM DAILY 01/22/21 21:00 Labetalol [Normodyne] 200 mg PO BID - Plan Plan:: Patient was personally seen and examined with the medical student. I reviewed the noted scribed on my behalf and necessary changes have been made to reflect my opinion on the history, exam, assessment, and plan. Betty Coppola MD
[2021-01-22 13:58] LABS: ANION GAP 13.5 mEq/L (7-13); CHLORIDE,CL 104 mmol/L (98-107); SODIUM,NA 137 mmol/L (136-145)
[2021-01-22] MEDS ORDERED: Benzocaine/Cetylpyridinium/Menthol Lozenge MUCMEM PRN (20:35)
[2021-01-22] MEDS: Labetalol 100 MG Tab PO SCH (21:29)
[2021-01-22] MEDS: Nicotine 14 MG/24 Hr Patch TRDERM SCH (21:30)
[2021-01-22] MEDS: Codeine/Promethazine 10-6.25 MG/5 ML Syrup 5 ML UD Cup PO PRN (21:31)
[2021-01-23] MEDS: Benzonatate 100 MG Cap PO PRN ×2 (00:16→06:03)
[2021-01-23] MEDS: Acetaminophen/oxyCODONE 325-5 MG Tab PO PRN ×4 (00:16→12:58)
[2021-01-23] MEDS: Codeine/Promethazine 10-6.25 MG/5 ML Syrup 5 ML UD Cup PO PRN (04:01)
--- NOTE | 2021-01-23 08:52 | PCM.PN ---
- General Info Date of Service: 01/23/21 Admission Dx/Problem (Free Text): Pre-eclampsia with severe features, symptomatic covid infection - Patient Data Vitals - Most Recent: Last Vital Signs Temp 98.1 F 01/23/21 06:03 Pulse 104 H 01/23/21 06:03 Resp 16 01/23/21 06:03 BP 141/80 H 01/23/21 06:03 Pulse Ox 97 01/23/21 06:03 Weight - Most Recent: 187 lb I&O - Last 24 Hours: Intake & Output 01/22/21 01/23/21 01/23/21 22:59 06:59 14:59 Intake Total 120 Balance 120 Lab Results Last 24 Hours: Laboratory Results - last 24 hr 01/19/21 01/19/21 01/19/21 Range/Units 16:25 16:25 16:25 Sodium (136-145) mmol/L Potassium (3.5-5.1) mmol/L Chloride (98-107) mmol/L Carbon Dioxide (21-32) mmol/L Anion Gap (7-13) mEq/L BUN (7-18) mg/dL Creatinine (0.55-1.02) mg/dL Est Cr Clr Drug Dosing mL/min Estimated GFR (MDRD) BUN/Creatinine Ratio (No establ ref range) Glucose (70-99) mg/dL Calcium (8.5-10.1) mg/dL Total Bilirubin (0.2-1.0) mg/dL Direct Bilirubin (0.0-0.2) mg/dL AST (15-37) U/L ALT (14-59) U/L Alkaline Phosphatase (46-116) U/L Total Protein (6.4-8.2) g/dL Albumin (3.4-5.0) g/dL Globulin Albumin/Globulin Ratio Hep Bs Antigen Negative (Negative) Hepatitis C Antibody >11.0 H (0.0-0.9) s/co ratio Crossmatch See Detail 01/22/21 Range/Units 13:31 Sodium 137 (136-145) mmol/L Potassium 4.5 (3.5-5.1) mmol/L Chloride 104 (98-107) mmol/L Carbon Dioxide 24 (21-32) mmol/L Anion Gap 13.5 H (7-13) mEq/L BUN 12 (7-18) mg/dL Creatinine 0.75 (0.55-1.02) mg/dL Est Cr Clr Drug Dosing 113.45 mL/min Estimated GFR (MDRD) > 60 BUN/Creatinine Ratio 16.0 (No establ ref range) Glucose 81 (70-99) mg/dL Calcium 7.0 L D (8.5-10.1) mg/dL Total Bilirubin 0.1 L (0.2-1.0) mg/dL Direct Bilirubin < 0.1 (0.0-0.2) mg/dL AST 32 (15-37) U/L ALT 40 (14-59) U/L Alkaline Phosphatase 148 H (46-116) U/L Total Protein 5.3 L (6.4-8.2) g/dL Albumin 1.4 L (3.4-5.0) g/dL Globulin 3.9 Albumin/Globulin Ratio 0.36 Hep Bs Antigen (Negative) Hepatitis C Antibody (0.0-0.9) s/co ratio Crossmatch Grant Results Last 24 Hours: Microbiology 01/19/21 18:37 Group B Streptococcus Culture - Final Vaginal/Rectal NEGATIVE STREP GROUP B Med Orders - Current: Current Medications Acetaminophen (Acetaminophen 325 Mg Tab) 650 mg PO Q6H PRN PRN Reason: Mild Pain (1-3) or Fever Benzocaine/Menthol (Benzocaine/Cetylpyridinium/Menthol Lozenge) 1 lozenge MUCMEM QID PRN PRN Reason: Sore Throat Last Admin: 01/22/21 21:29 Dose: 1 lozenge Documented by: Benzonatate (Benzonatate 100 Mg Cap) 100 mg PO Q6H PRN PRN Reason: Cough Last Admin: 01/23/21 06:03 Dose: 100 mg Documented by: Carboprost Tromethamine (Carboprost Tromethamine 250 Mcg/1 Ml Amp) 250 mcg IM ASDIRECTED PRN PRN Reason: Excessive vaginal bleeding Diphenhydramine HCl (Diphenhydramine 50 Mg/Ml Sdv) 25 mg IVPUSH Q6H PRN PRN Reason: Itching or Nausea Docusate Sodium (Docusate Sodium 100 Mg Cap) 100 mg PO Q12H PRN PRN Reason: Constipation Last Admin: 01/22/21 20:19 Dose: 100 mg Documented by: Ephedrine Sulfate (Ephedrine 50 Mg/Ml Sdv) 5 mg IVPUSH Q5M PRN PRN Reason: See Label Comments Ferrous Sulfate (Ferrous Sulfate 325 Mg Tab) 325 mg PO BIDMEALS [facility] Last Admin: 01/22/21 17:45 Dose: 325 mg Documented by: Oxytocin/Sodium Chloride (Pitocin In Ns 30 Unit/500 Ml) 30 unit in 500 mls @ 2 mls/hr IV TITRATE [facility]; Protocol Last Titration: 01/20/21 14:10 Dose: 0 munits/min, 0 mls/hr Documented by: Tranexamic Acid 1,000 mg/ (Sodium Chloride) 110 mls @ 660 mls/hr IV ONETIME PRN PRN Reason: Bleeding Remdesivir 100 mg/ Sodium (Chloride) 100 mls @ 100 mls/hr IV Q24H [facility] Stop: 01/26/21 09:59 Labetalol HCl (Labetalol 100 Mg Tab) 200 mg PO BID [facility] Last Admin: 01/22/21 21:29 Dose: 200 mg Documented by: Lidocaine HCl (Lidocaine 1% 30 Ml Sdv) 30 ml INJECT ASDIRECTED PRN PRN Reason: Perineal Repair Methylergonovine Maleate (Methylergonovine 0.2 Mg Tab) 0.2 mg PO ONETIME PRN PRN Reason: Excessive vaginal bleeding Metronidazole (Metronidazole 250 Mg Tab) 500 mg PO Q12HR [facility] Last Admin: 01/22/21 20:19 Dose: 500 mg Documented by: Misoprostol (Misoprostol 400 Mcg (4 X 100 Mcg Tab)) 800 mcg RECTAL ASDIRECTED PRN PRN Reason: Hemorrhage Nalbuphine HCl (Nalbuphine 10 Mg/1 Ml Vial) 20 mg IM ONETIME PRN PRN Reason: Pain Naloxone HCl (Naloxone 2 Mg/2 Ml Syringe) 0.1 mg IVPUSH SEECOMMENT PRN PRN Reason: Respiratory Depression Nicotine (Nicotine 14 Mg/24 Hr Patch) 14 mg TRDERM DAILY [facility] Last Admin: 01/22/21 21:30 Dose: Not Given Documented by: Ondansetron HCl (Ondansetron 4 Mg/2 Ml Sdv) 4 mg IVPUSH Q4H PRN PRN Reason: Nausea/Vomiting Oxycodone/Acetaminophen (Acetaminophen/Oxycodone 325-5 Mg Tab) 1 tab PO Q4H PRN PRN Reason: Pain (moderate 4-6) Last Admin: 01/21/21 16:55 Dose: 1 tab Documented by: Oxycodone/Acetaminophen (Acetaminophen/Oxycodone 325-5 Mg Tab) 2 tab PO Q4H PRN PRN Reason: Pain (moderate 4-6) Last Admin: 01/23/21 04:00 Dose: 2 tab Documented by: Oxytocin (Oxytocin 10 Units/1 Ml Sdv) 10 unit IM ONETIME PRN PRN Reason: Excessive vaginal bleeding Prenat Multivit/Ecmo Specialist/Iron/Folic Ac ( Multivitamin With Calcium/Folic Acid/Iron Tab) 1 each PO DAILY [facility] Last Admin: 01/22/21 08:04 Dose: 1 each Documented by: Promethazine HCl (Promethazine 25 Mg/Ml Sdv) 12.5 mg IM Q6H PRN PRN Reason: Nausea/Vomiting Promethazine HCl/Codeine (Codeine/Promethazine 10-6.25 Mg/5 Ml Syrup 5 Ml Ud Cup) 5 ml PO Q6HR PRN PRN Reason: Cough Last Admin: 01/23/21 04:01 Dose: 5 ml Documented by: Simethicone (Simethicone 80 Mg Tab.Chew) 160 mg PO QID [facility] Last Admin: 01/22/21 20:19 Dose: 160 mg Documented by: Sodium Chloride (Sodium Chloride 0.9% 10 Ml Syringe) 10 ml FLUSH ASDIRECTED PRN PRN Reason: Keep Vein Open Discontinued Medications Acetaminophen (Acetaminophen 325 Mg Tab) 650 mg PO Q4H PRN PRN Reason: Pain/Fever Last Admin: 01/20/21 00:43 Dose: 650 mg Documented by: Azithromycin (Azithromycin 250 Mg Tab) 1,000 mg PO ONETIME ONE Stop: 01/21/21 14:58 Last Admin: 01/21/21 16:54 Dose: 1,000 mg Documented by: Citric Acid/Sodium Citrate (Citric Acid/Sodium Citrate Solution 30 Ml Cup) 30 ml PO ONETIME ONE Stop: 01/20/21 09:58 Last Admin: 01/20/21 11:33 Dose: Not Given Documented by: Dexamethasone (Dexamethasone 4 Mg/Ml Sdv) 8 mg IV .STK-MED ONE Stop: 01/20/21 11:01 Ephedrine Sulfate (Ephedrine 50 Mg/Ml Sdv) 25 mg IV .STK-MED ONE Stop: 01/20/21 11:01 Fentanyl (Fentanyl 100 Mcg/2 Ml Sdv) 100 mcg IV .STK-MED ONE Stop: 01/20/21 11:01 Hydralazine HCl (Hydralazine 20 Mg/Ml Sdv) Confirm Administered Dose 20 mg .ROUTE .STK-MED ONE Stop: 01/20/21 06:21 Last Admin: 01/20/21 06:42 Dose: Not Given Documented by: Hydralazine HCl (Hydralazine 20 Mg/Ml Sdv) 5 mg IVPUSH ONETIME ONE Stop: 01/20/21 06:24 Last Admin: 01/20/21 06:25 Dose: 5 mg Documented by: Magnesium Sulfate 4 gm/ Premix 100 mls @ 300 mls/hr IV BOLUS ONE Stop: 01/19/21 16:34 Last Admin: 01/19/21 16:46 Dose: 300 mls/hr Documented by: Magnesium Sulfate (Magnesium Sulfate In Water 20 Gm/500 Ml) 20 gm in 500 mls @ 50 mls/hr IV ASDIRECTED [facility] Last Admin: 01/21/21 07:07 Dose: 50 mls/hr Documented by: Lactated Ringer's (Ringers, Lactated) 500 mls @ 999 mls/hr IV SEECOMMENT [facility] Lactated Ringer's (Ringers, Lactated) 500 mls @ 999 mls/hr IV .BOLUS [facility] Lactated Ringer's (Ringers, Lactated) 1,000 mls @ 125 mls/hr IV ASDIRECTED [facility] Last Admin: 01/20/21 15:58 Dose: 125 mls/hr Documented by: Penicillin G Potassium 3 (millunits/ Sodium Chloride) 100 mls @ 200 mls/hr IV Q4H [facility] Penicillin G Potassium 5 (millunits/ Sodium Chloride) 100 mls @ 200 mls/hr IV ONETIME ONE Stop: 01/20/21 09:29 Last Admin: 01/20/21 09:26 Dose: 200 mls/hr Documented by: Cefazolin Sodium/Dextrose (Ancef 2 Gm/50 Ml) Confirm Administered Dose 50 mls @ as directed .ROUTE .STK-MED ONE Stop: 01/20/21 09:48 Oxytocin/Sodium Chloride (Pitocin In Ns 30 Unit/500 Ml) Confirm Administered Dose 60 unit in 1,000 mls @ as directed .ROUTE .[facility]-MED ONE Stop: 01/20/21 09:48 Lactated Ringer's (Ringers, Lactated) 1,000 mls @ 500 mls/hr IV .BOLUS JEMAL Cefazolin Sodium/Dextrose 2 gm (/ Premix) 50 mls @ 100 mls/hr IV ONETIME ONE Stop: 01/20/21 11:29 Last Admin: 01/20/21 10:15 Dose: 100 mls/hr Documented by: Tranexamic Acid 1,000 mg/ (Sodium Chloride) 110 mls @ as directed IV .STK-MED ONE Stop: 01/20/21 11:01 Lactated Ringer's (Ringers, Lactated) 1,000 mls @ as directed IV .[facility] ONE Stop: 01/20/21 11:01 Oxytocin/Sodium Chloride (Pitocin In Ns 30 Unit/500 Ml) 30 unit in 500 mls @ as directed IV .[facility]-MED ONE Stop: 01/21/21 12:26 Remdesivir 200 mg/ Sodium (Chloride) 250 mls @ 250 mls/hr IV ONETIME ONE Stop: 01/22/21 14:59 Last Infusion: 01/22/21 16:40 Dose: Infused Documented by: Ketorolac Tromethamine (Ketorolac 30 Mg/Ml Sdv) 15 mg IVPUSH Q6H [facility] Stop: 01/21/21 05:31 Last Admin: 01/21/21 05:49 Dose: 15 mg Documented by: Labetalol HCl (Labetalol 20 Mg/4 Ml Syringe) 10 mg IVPUSH ONETIME ONE Stop: 01/19/21 16:14 Last Admin: 01/19/21 17:24 Dose: Not Given Documented by: Labetalol HCl (Labetalol 20 Mg/4 Ml Syringe) 10 mg IVPUSH ONETIME ONE Stop: 01/19/21 16:16 Last Admin: 01/19/21 16:37 Dose: 10 mg Documented by: Labetalol HCl (Labetalol 20 Mg/4 Ml Syringe) 0 mg IV ASDIRECTED PRN PRN Reason: HIGH BLOOD PRESSURE Last Admin: 01/20/21 05:36 Dose: 20 mg Documented by: Labetalol HCl (Labetalol 20 Mg/4 Ml Syringe) 40 mg IVPUSH ONETIME ONE Stop: 01/20/21 07:10 Last Admin: 01/20/21 07:18 Dose: 40 mg Documented by: Labetalol HCl (Labetalol 100 Mg Tab) 200 mg PO TID [facility] Last Admin: 01/20/21 08:38 Dose: 200 mg Documented by: Labetalol HCl (Labetalol 100 Mg Tab) 200 mg PO TID [facility] Last Admin: 01/21/21 15:10 Dose: Not Given Documented by: Labetalol HCl (Labetalol 100 Mg Tab) 200 mg PO ONETIME ONE Stop: 01/22/21 04:28 Last Admin: 01/22/21 04:32 Dose: 200 mg Documented by: Measles/Mumps/Rubella Vaccine Live (Measles, Mumps & Rubella Vaccine 0.5 Ml Sdv) 0.5 ml SUBCUT .ONCE ONE Stop: 01/21/21 09:44 Last Admin: 01/21/21 12:24 Dose: 0.5 ml Documented by: Misoprostol (Misoprostol 25 Mcg (1/4 Of 100 Mcg) Tab) 25 mcg VAG ONETIME ONE Stop: 01/19/21 18:50 Last Admin: 01/19/21 19:47 Dose: 25 mcg Documented by: Misoprostol (Misoprostol 25 Mcg (1/4 Of 100 Mcg) Tab) 25 mcg VAG Q4H PRN PRN Reason: Other Last Admin: 01/20/21 03:50 Dose: 25 mcg Documented by: Morphine Sulfate (Morphine Pf 10 Mg/10 Ml Sdv) 0.2 mg .XX .STK-MED ONE Stop: 01/20/21 11:01 Naloxone HCl (Naloxone 2 Mg/2 Ml Syringe) 0.1 mg IVPUSH SEECOMMENT PRN PRN Reason: Respiratory Depression Ondansetron HCl (Ondansetron 4 Mg/2 Ml Sdv) 4 mg IV .STK-MED ONE Stop: 01/20/21 11:01 - Exam Urinary Catheter Total Time: 1Days 9Hours - Patient Data Lab Results Last 24 hrs: Laboratory Results - last 24 hr 01/19/21 01/19/21 01/19/21 Range/Units 16:25 16:25 16:25 Sodium (136-145) mmol/L Potassium (3.5-5.1) mmol/L Chloride (98-107) mmol/L Carbon Dioxide (21-32) mmol/L Anion Gap (7-13) mEq/L BUN (7-18) mg/dL Creatinine (0.55-1.02) mg/dL Est Cr Clr Drug Dosing mL/min Estimated GFR (MDRD) BUN/Creatinine Ratio (No establ ref range) Glucose (70-99) mg/dL Calcium (8.5-10.1) mg/dL Total Bilirubin (0.2-1.0) mg/dL Direct Bilirubin (0.0-0.2) mg/dL AST (15-37) U/L ALT (14-59) U/L Alkaline Phosphatase (46-116) U/L Total Protein (6.4-8.2) g/dL Albumin (3.4-5.0) g/dL Globulin Albumin/Globulin Ratio Hep Bs Antigen Negative (Negative) Hepatitis C Antibody >11.0 H (0.0-0.9) s/co ratio Crossmatch See Detail 01/22/21 Range/Units 13:31 Sodium 137 (136-145) mmol/L Potassium 4.5 (3.5-5.1) mmol/L Chloride 104 (98-107) mmol/L Carbon Dioxide 24 (21-32) mmol/L Anion Gap 13.5 H (7-13) mEq/L BUN 12 (7-18) mg/dL Creatinine 0.75 (0.55-1.02) mg/dL Est Cr Clr Drug Dosing 113.45 mL/min Estimated GFR (MDRD) > 60 BUN/Creatinine Ratio 16.0 (No establ ref range) Glucose 81 (70-99) mg/dL Calcium 7.0 L D (8.5-10.1) mg/dL Total Bilirubin 0.1 L (0.2-1.0) mg/dL Direct Bilirubin < 0.1 (0.0-0.2) mg/dL AST 32 (15-37) U/L ALT 40 (14-59) U/L Alkaline Phosphatase 148 H (46-116) U/L Total Protein 5.3 L (6.4-8.2) g/dL Albumin 1.4 L (3.4-5.0) g/dL Globulin 3.9 Albumin/Globulin Ratio 0.36 Hep Bs Antigen (Negative) Hepatitis C Antibody (0.0-0.9) s/co ratio Crossmatch Result Diagrams: 01/21/21 06:17 01/22/21 13:31 Grant Results Last 24 hrs: Microbiology 01/19/21 18:37 Group B Streptococcus Culture - Final Vaginal/Rectal NEGATIVE STREP GROUP B Sepsis Event Note - Evaluation Sepsis Screening Result: No Definite Risk - Focused Exam Vital Signs: Vital Signs Temp Pulse Pulse Resp BP BP Pulse Ox 01/23/21 06:03 98.1 F 104 H 16 141/80 H 97 01/23/21 04:00 98.9 F 79 16 147/91 H 98 01/23/21 00:00 98.4 F 88 16 139/91 H 100 01/22/21 21:29 81 162/93 H - Problem List & Annotations (1) COVID-19 SNOMED Code(s): 446503295 Code(s): U07.1 - COVID-19 Status: Acute Current Visit: Yes Annotation/Comment:: -Currently asymptomatic -Contact and airborne precautions -Monitor for symptoms - My Orders Last 24 Hours: My Active Orders 01/23/21 09:00 Remdesivir 100 mg Sodium Chloride 0.9% [Normal Saline] 100 ml IV Q24H - Assessment Assessment:: plan for CBC in the morning. Suspect she is now symptomatic from covid infection. Remdesivir started - will follow liver enzymes & bilirubin - Plan Plan:: Induction of labor for severe preeclampsia, BP stable on labetolol Meth and THC positive. Social work consulted COVID positive - remdesivir given
[2021-01-23] MEDS: Simethicone 80 MG Tab.Chew PO SCH ×2 (08:55→12:54)
[2021-01-23] MEDS: Labetalol 100 MG Tab PO SCH (08:55)
[2021-01-23] MEDS: Prenatal Multivitamin with Calcium/Folic Acid/Iron Tab PO SCH (08:56)
[2021-01-23] MEDS: Nicotine 14 MG/24 Hr Patch TRDERM SCH (08:56)
[2021-01-23] MEDS: metroNIDAZOLE 250 MG Tab PO SCH (08:56)
[2021-01-23] MEDS: Ferrous Sulfate 325 MG Tab PO SCH (08:56)
[2021-01-23] MEDS ORDERED: REMDESIVIR 100 MG in Sodium Chloride 0.9% 100 ML IV SCH (09:00)
--- NOTE | 2021-01-23 12:43 | PCM.DCSUM1 ---
<Miranda Millan - Last Filed: 01/23/21 15:44> Discharge Summary - Discharge Data Discharge Disposition: Home, Self-Care 01 Condition: Good - Referral to Home Health Primary Care Physician: PCP None - Discharge Diagnosis/Problem(s) (1) COVID-19 SNOMED Code(s): 209929753 ICD Code: U07.1 - COVID-19 Status: Acute Current Visit: Yes Problem Details: -Currently asymptomatic -Contact and airborne precautions -Monitor for symptoms - Patient Summary/Data Consults: Consultations 01/20/21 11:13 Consult to Case Management/Senior Administrative Support [CONS] Routine - Discharge Plan Home Medications: Home Meds Acetaminophen [Tylenol Extra Strength] 1,000 mg PO Q4H 01/13/19 [History] #103/Iron Fumarate/Fa [ ] 1 tab PO DAILY 01/19/21 [History] Acetaminophen/oxyCODONE [Percocet 325-5 MG] 2 tab PO Q4H PRN tablet 01/23/21 [Rx] Docusate Sodium [Colace] 100 mg PO Q12H PRN cap 01/23/21 [Rx] Ferrous Sulfate 325 mg PO BIDMEALS tablet 01/23/21 [Rx] Labetalol [Normodyne] 200 mg PO BID tablet 01/23/21 [Rx] metroNIDAZOLE 500 mg PO Q12HR tablet 01/23/21 [Rx] Patient Handouts: COVID-19 Frequently Asked Questions, Preeclampsia and Ecla mpsia, COVID-19, Care After Delivery Referrals: Betty Coppola MD [Physician] - (Staple removal on TuesdayJanuary 26 at 1:30pm with daughter. ) - General Info Date of Service: 01/23/21 Admission Dx/Problem (Free Text: Gestational hypertension, s/p primary low transverse C section Subjective Update: Anders received 2 doses of Remdesavir after fever development yesterday, 01/22/21. Since that time her fever has subsided, she has been ambulating, tolerating PO intake, urinating and has had a bowel movement. No acute overnight events and says surgical incision and abdominal pain only with some movements and cough. Anders also states she has begun lactating and that is causing her breast tenderness. She reports no chills, lightheadedness, headache, shortness of breath, chest pain, RUQ pain, dysuria. Endorses mild lochia, found to be diffusely pruritic without rash (no scleral icteris, no angioedema), Functional Status: Reports: Pain Controlled, Tolerating Diet, Ambulating, Urinating - Review of Systems General: Reports: No Symptoms Pulmonary: Reports: No Symptoms Cardiovascular: Reports: No Symptoms Gastrointestinal: Reports: No Symptoms Genitourinary: Reports: No Symptoms Musculoskeletal: Reports: No Symptoms Skin: Reports: Pruritis Neurological: Reports: No Symptoms Psychiatric: Reports: No Symptoms - Patient Data Vitals - Most Recent: Last Vital Signs Temp 98.2 F 01/23/21 12:00 Pulse 85 01/23/21 12:00 Resp 16 01/23/21 12:00 BP 145/95 H 01/23/21 12:00 Pulse Ox 98 01/23/21 12:00 Lab Results - Last 24 hrs: Laboratory Results - last 24 hr 01/19/21 Range/Units 16:25 Crossmatch See Detail Med Orders - Current: Current Medications Acetaminophen (Acetaminophen 325 Mg Tab) 650 mg PO Q6H PRN PRN Reason: Mild Pain (1-3) or Fever Benzocaine/Menthol (Benzocaine/Cetylpyridinium/Menthol Lozenge) 1 lozenge MUCMEM QID PRN PRN Reason: Sore Throat Last Admin: 01/22/21 21:29 Dose: 1 lozenge Documented by: Benzonatate (Benzonatate 100 Mg Cap) 100 mg PO Q6H PRN PRN Reason: Cough Last Admin: 01/23/21 06:03 Dose: 100 mg Documented by: Carboprost Tromethamine (Carboprost Tromethamine 250 Mcg/1 Ml Amp) 250 mcg IM ASDIRECTED PRN PRN Reason: Excessive vaginal bleeding Diphenhydramine HCl (Diphenhydramine 50 Mg/Ml Sdv) 25 mg IVPUSH Q6H PRN PRN Reason: Itching or Nausea Docusate Sodium (Docusate Sodium 100 Mg Cap) 100 mg PO Q12H PRN PRN Reason: Constipation Last Admin: 01/22/21 20:19 Dose: 100 mg Documented by: Ephedrine Sulfate (Ephedrine 50 Mg/Ml Sdv) 5 mg IVPUSH Q5M PRN PRN Reason: See Label Comments Ferrous Sulfate (Ferrous Sulfate 325 Mg Tab) 325 mg PO BIDMEALS [facility] Last Admin: 01/23/21 08:56 Dose: 325 mg Documented by: Oxytocin/Sodium Chloride (Pitocin In Ns 30 Unit/500 Ml) 30 unit in 500 mls @ 2 mls/hr IV TITRATE [facility]; Protocol Last Titration: 01/20/21 14:10 Dose: 0 munits/min, 0 mls/hr Documented by: Tranexamic Acid 1,000 mg/ (Sodium Chloride) 110 mls @ 660 mls/hr IV ONETIME PRN PRN Reason: Bleeding Remdesivir 100 mg/ Sodium (Chloride) 100 mls @ 100 mls/hr IV Q24H [facility] Stop: 01/26/21 09:59 Last Infusion: 01/23/21 10:40 Dose: Infused Documented by: Labetalol HCl (Labetalol 100 Mg Tab) 200 mg PO BID [facility] Last Admin: 01/23/21 08:55 Dose: 200 mg Documented by: Lidocaine HCl (Lidocaine 1% 30 Ml Sdv) 30 ml INJECT ASDIRECTED PRN PRN Reason: Perineal Repair Methylergonovine Maleate (Methylergonovine 0.2 Mg Tab) 0.2 mg PO ONETIME PRN PRN Reason: Excessive vaginal bleeding Metronidazole (Metronidazole 250 Mg Tab) 500 mg PO Q12HR [facility] Last Admin: 01/23/21 08:56 Dose: 500 mg Documented by: Misoprostol (Misoprostol 400 Mcg (4 X 100 Mcg Tab)) 800 mcg RECTAL ASDIRECTED PRN PRN Reason: Hemorrhage Nalbuphine HCl (Nalbuphine 10 Mg/1 Ml Vial) 20 mg IM ONETIME PRN PRN Reason: Pain Naloxone HCl (Naloxone 2 Mg/2 Ml Syringe) 0.1 mg IVPUSH SEECOMMENT PRN PRN Reason: Respiratory Depression Nicotine (Nicotine 14 Mg/24 Hr Patch) 14 mg TRDERM DAILY [facility] Last Admin: 01/23/21 08:56 Dose: Not Given Documented by: Ondansetron HCl (Ondansetron 4 Mg/2 Ml Sdv) 4 mg IVPUSH Q4H PRN PRN Reason: Nausea/Vomiting Oxycodone/Acetaminophen (Acetaminophen/Oxycodone 325-5 Mg Tab) 1 tab PO Q4H PRN PRN Reason: Pain (moderate 4-6) Last Admin: 01/21/21 16:55 Dose: 1 tab Documented by: Oxycodone/Acetaminophen (Acetaminophen/Oxycodone 325-5 Mg Tab) 2 tab PO Q4H PRN PRN Reason: Pain (moderate 4-6) Last Admin: 01/23/21 12:58 Dose: 2 tab Documented by: Oxytocin (Oxytocin 10 Units/1 Ml Sdv) 10 unit IM ONETIME PRN PRN Reason: Excessive vaginal bleeding Prenat Multivit/[place]/Iron/Folic Ac ( Multivitamin With Calcium/Folic Acid/Iron Tab) 1 each PO DAILY [facility] Last Admin: 01/23/21 08:56 Dose: 1 each Documented by: Promethazine HCl (Promethazine 25 Mg/Ml Sdv) 12.5 mg IM Q6H PRN PRN Reason: Nausea/Vomiting Promethazine HCl/Codeine (Codeine/Promethazine 10-6.25 Mg/5 Ml Syrup 5 Ml Ud Cup) 5 ml PO Q6HR PRN PRN Reason: Cough Last Admin: 01/23/21 04:01 Dose: 5 ml Documented by: Simethicone (Simethicone 80 Mg Tab.Chew) 160 mg PO QID [facility] Last Admin: 01/23/21 12:54 Dose: 160 mg Documented by: Sodium Chloride (Sodium Chloride 0.9% 10 Ml Syringe) 10 ml FLUSH ASDIRECTED PRN PRN Reason: Keep Vein Open Discontinued Medications Acetaminophen (Acetaminophen 325 Mg Tab) 650 mg PO Q4H PRN PRN Reason: Pain/Fever Last Admin: 01/20/21 00:43 Dose: 650 mg Documented by: Azithromycin (Azithromycin 250 Mg Tab) 1,000 mg PO ONETIME ONE Stop: 01/21/21 14:58 Last Admin: 01/21/21 16:54 Dose: 1,000 mg Documented by: Citric Acid/Sodium Citrate (Citric Acid/Sodium Citrate Solution 30 Ml Cup) 30 ml PO ONETIME ONE Stop: 01/20/21 09:58 Last Admin: 01/20/21 11:33 Dose: Not Given Documented by: Dexamethasone (Dexamethasone 4 Mg/Ml Sdv) 8 mg IV .STK-MED ONE Stop: 01/20/21 11:01 Ephedrine Sulfate (Ephedrine 50 Mg/Ml Sdv) 25 mg IV .STK-MED ONE Stop: 01/20/21 11:01 Fentanyl (Fentanyl 100 Mcg/2 Ml Sdv) 100 mcg IV .STK-MED ONE Stop: 01/20/21 11:01 Hydralazine HCl (Hydralazine 20 Mg/Ml Sdv) Confirm Administered Dose 20 mg .ROUTE .STK-MED ONE Stop: 01/20/21 06:21 Last Admin: 01/20/21 06:42 Dose: Not Given Documented by: Hydralazine HCl (Hydralazine 20 Mg/Ml Sdv) 5 mg IVPUSH ONETIME ONE Stop: 01/20/21 06:24 Last Admin: 01/20/21 06:25 Dose: 5 mg Documented by: Magnesium Sulfate 4 gm/ Premix 100 mls @ 300 mls/hr IV BOLUS ONE Stop: 01/19/21 16:34 Last Admin: 01/19/21 16:46 Dose: 300 mls/hr Documented by: Magnesium Sulfate (Magnesium Sulfate In Water 20 Gm/500 Ml) 20 gm in 500 mls @ 50 mls/hr IV ASDIRECTED [facility] Last Admin: 01/21/21 07:07 Dose: 50 mls/hr Documented by: Lactated Ringer's (Ringers, Lactated) 500 mls @ 999 mls/hr IV SEECOMMENT [facility] Lactated Ringer's (Ringers, Lactated) 500 mls @ 999 mls/hr IV .BOLUS [facility] Lactated Ringer's (Ringers, Lactated) 1,000 mls @ 125 mls/hr IV ASDIRECTED [facility] Last Admin: 01/20/21 15:58 Dose: 125 mls/hr Documented by: Penicillin G Potassium 3 (millunits/ Sodium Chloride) 100 mls @ 200 mls/hr IV Q4H [facility] Penicillin G Potassium 5 (millunits/ Sodium Chloride) 100 mls @ 200 mls/hr IV ONETIME ONE Stop: 01/20/21 09:29 Last Admin: 01/20/21 09:26 Dose: 200 mls/hr Documented by: Cefazolin Sodium/Dextrose (Ancef 2 Gm/50 Ml) Confirm Administered Dose 50 mls @ as directed .ROUTE .STK-MED ONE Stop: 01/20/21 09:48 Oxytocin/Sodium Chloride (Pitocin In Ns 30 Unit/500 Ml) Confirm Administered Dose 60 unit in 1,000 mls @ as directed .ROUTE .STK-MED ONE Stop: 01/20/21 09:48 Lactated Ringer's (Ringers, Lactated) 1,000 mls @ 500 mls/hr IV .BOLUS JEMAL Cefazolin Sodium/Dextrose 2 gm (/ Premix) 50 mls @ 100 mls/hr IV ONETIME ONE Stop: 01/20/21 11:29 Last Admin: 01/20/21 10:15 Dose: 100 mls/hr Documented by: Tranexamic Acid 1,000 mg/ (Sodium Chloride) 110 mls @ as directed IV .STK-MED ONE Stop: 01/20/21 11:01 Lactated Ringer's (Ringers, Lactated) 1,000 mls @ as directed IV .STK-MED ONE Stop: 01/20/21 11:01 Oxytocin/Sodium Chloride (Pitocin In Ns 30 Unit/500 Ml) 30 unit in 500 mls @ as directed IV .STK-MED ONE Stop: 01/21/21 12:26 Remdesivir 200 mg/ Sodium (Chloride) 250 mls @ 250 mls/hr IV ONETIME ONE Stop: 01/22/21 14:59 Last Infusion: 01/22/21 16:40 Dose: Infused Documented by: Ketorolac Tromethamine (Ketorolac 30 Mg/Ml Sdv) 15 mg IVPUSH Q6H [facility] Stop: 01/21/21 05:31 Last Admin: 01/21/21 05:49 Dose: 15 mg Documented by: Labetalol HCl (Labetalol 20 Mg/4 Ml Syringe) 10 mg IVPUSH ONETIME ONE Stop: 01/19/21 16:14 Last Admin: 01/19/21 17:24 Dose: Not Given Documented by: Labetalol HCl (Labetalol 20 Mg/4 Ml Syringe) 10 mg IVPUSH ONETIME ONE Stop: 01/19/21 16:16 Last Admin: 01/19/21 16:37 Dose: 10 mg Documented by: Labetalol HCl (Labetalol 20 Mg/4 Ml Syringe) 0 mg IV ASDIRECTED PRN PRN Reason: HIGH BLOOD PRESSURE Last Admin: 01/20/21 05:36 Dose: 20 mg Documented by: Labetalol HCl (Labetalol 20 Mg/4 Ml Syringe) 40 mg IVPUSH ONETIME ONE Stop: 01/20/21 07:10 Last Admin: 01/20/21 07:18 Dose: 40 mg Documented by: Labetalol HCl (Labetalol 100 Mg Tab) 200 mg PO TID [facility] Last Admin: 01/20/21 08:38 Dose: 200 mg Documented by: Labetalol HCl (Labetalol 100 Mg Tab) 200 mg PO TID [facility] Last Admin: 01/21/21 15:10 Dose: Not Given Documented by: Labetalol HCl (Labetalol 100 Mg Tab) 200 mg PO ONETIME ONE Stop: 01/22/21 04:28 Last Admin: 01/22/21 04:32 Dose: 200 mg Documented by: Measles/Mumps/Rubella Vaccine Live (Measles, Mumps & Rubella Vaccine 0.5 Ml Sdv) 0.5 ml SUBCUT .ONCE ONE Stop: 01/21/21 09:44 Last Admin: 01/21/21 12:24 Dose: 0.5 ml Documented by: Misoprostol (Misoprostol 25 Mcg (1/4 Of 100 Mcg) Tab) 25 mcg VAG ONETIME ONE Stop: 01/19/21 18:50 Last Admin: 01/19/21 19:47 Dose: 25 mcg Documented by: Misoprostol (Misoprostol 25 Mcg (1/4 Of 100 Mcg) Tab) 25 mcg VAG Q4H PRN PRN Reason: Other Last Admin: 01/20/21 03:50 Dose: 25 mcg Documented by: Morphine Sulfate (Morphine Pf 10 Mg/10 Ml Sdv) 0.2 mg .XX .STK-MED ONE Stop: 01/20/21 11:01 Naloxone HCl (Naloxone 2 Mg/2 Ml Syringe) 0.1 mg IVPUSH SEECOMMENT PRN PRN Reason: Respiratory Depression Ondansetron HCl (Ondansetron 4 Mg/2 Ml Sdv) 4 mg IV .STK-MED ONE Stop: 01/20/21 11:01 - Exam General: Reports: Alert, Oriented HEENT: Reports: Pupils Reactive, EOMI, Mucous Membr. Moist/[place] Neck: Reports: Supple Lungs: Reports: Normal Respiratory Effort, Wheezing Cardiovascular: Reports: Regular Rate, Regular Rhythm GI/Abdominal Exam: Normal Bowel Sounds, Soft, Tender (Female) Exam: Deferred Back Exam: Reports: Normal Inspection, Full Range of Motion Extremities: Normal Inspection, Normal Range of Motion, Non-Tender, No Pedal Edema, Normal Capillary Refill Skin: Reports: Warm, Dry, Intact Wound/Incisions: Reports: Healing Well Neurological: Reports: No New Focal Deficit, Normal Speech, Reflexes Equal Bilateral, Other (No clonus) Psy/Mental Status: Reports: Alert, Normal Affect, Normal Mood <Betty Coppola - Last Filed: 01/23/21 16:54> Discharge Summary - Hospital Course Free Text/Narrative:: Patient was admitted directly from clinic for elevated blood pressures. She had no care except for ultrasound done in [place] at 31 weeks. Full work up was initiated. She was positive for meth and THC. She was also hepatitis C and COVID positive. At the time, she was asymptomatic. She was found to have severe preeclampsia and was started on magnesium. Ultrasound showed oligohydramnios and IUGR. Because of this, she was induced. She received 3 doses of cytotec but had sudden increase in vaginal bleeding, pain and blood pressures. then performed as she was at high risk for placental abruption. She did well. On post day 2, she developed cough, fever. She was started on Remdesivir due to being high risk in her current post state. She improved over 24 hours and did desire discharge home. Her blood pressures were controlled on oral lab etalol and she diureses well. Pain was controlled. Social work did meet with her and did decide that she could take baby home with her. She will be staying with her friend Digna in [place]. She will follow up on Tuesday for blood pressure check. Juventino to be removed at that time. - Discharge Data Discharge Date: 01/23/21 - Referral to Home Health Primary Care Physician: PCP None - Patient Summary/Data Consults: Consultations 01/20/21 11:13 Consult to Case Management/Senior Administrative Support [CONS] Routine - Discharge Plan *PRESCRIPTION DRUG MONITORING PROGRAM REVIEWED*: Not Applicable *COPY OF PRESCRIPTION DRUG MONITORING REPORT IN PATIENT YAYA: Not Applicable - Discharge Summary/Plan Comment DC Time >30 min.: Yes Total # of Minutes for Discharge Time: 60 minutes spent in counseling, discharge instructions, discharge planning. Discharge Summary/Plan Comment: Patient will discharge to home. She is living with a friend in [place]. environmental services tech is helping with supplies, she is signed up for [facility]. She is motivated to stay clean for her child. Discussed outpatient resources for drug addiction. Reviewed discharge instructions, post care instructions, s/p instructions. Will remove juventino at her follow up visit on Tuesday. Will recheck blood pressure at that time. She is to continue on 200 mg Labetalol BID for now. Symptoms of worsening preeclampsia discussed. 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 Pain meds were provided. Lifting precautions discussed. Advised pelvic rest for 6 weeks. Will also follow up at 6 week post visit. High risk for post depression so reviewed signs/symptoms as well. Betty Coppola MD - Patient Data Vitals - Most Recent: Last Vital Signs Temp 98.7 F 01/23/21 08:00 Pulse 94 01/23/21 08:55 Resp 16 01/23/21 08:00 BP 146/92 H 01/23/21 08:55 Pulse Ox 97 01/23/21 08:00 Weight - Most Recent: 84.822 kg I&O - Last 24 hours: Intake & Output 01/22/21 01/23/21 01/23/21 22:59 06:59 14:59 Intake Total 120 Balance 120 Lab Results - Last 24 hrs: Laboratory Results - last 24 hr 01/19/21 01/22/21 Range/Units 16:25 13:31 Sodium 137 (136-145) mmol/L Potassium 4.5 (3.5-5.1) mmol/L Chloride 104 (98-107) mmol/L Carbon Dioxide 24 (21-32) mmol/L Anion Gap 13.5 H (7-13) mEq/L BUN 12 (7-18) mg/dL Creatinine 0.75 (0.55-1.02) mg/dL Est Cr Clr Drug Dosing 113.45 mL/min Estimated GFR (MDRD) > 60 BUN/Creatinine Ratio 16.0 (No establ ref range) Glucose 81 (70-99) mg/dL Calcium 7.0 L D (8.5-10.1) mg/dL Total Bilirubin 0.1 L (0.2-1.0) mg/dL Direct Bilirubin < 0.1 (0.0-0.2) mg/dL AST 32 (15-37) U/L ALT 40 (14-59) U/L Alkaline Phosphatase 148 H (46-116) U/L Total Protein 5.3 L (6.4-8.2) g/dL Albumin 1.4 L (3.4-5.0) g/dL Globulin 3.9 Albumin/Globulin Ratio 0.36 Crossmatch See Detail Med Orders - Current: Current Medications Acetaminophen (Acetaminophen 325 Mg Tab) 650 mg PO Q6H PRN PRN Reason: Mild Pain (1-3) or Fever Benzocaine/Menthol (Benzocaine/Cetylpyridinium/Menthol Lozenge) 1 lozenge MUCMEM QID PRN PRN Reason: Sore Throat Last Admin: 01/22/21 21:29 Dose: 1 lozenge Documented by: Benzonatate (Benzonatate 100 Mg Cap) 100 mg PO Q6H PRN PRN Reason: Cough Last Admin: 01/23/21 06:03 Dose: 100 mg Documented by: Carboprost Tromethamine (Carboprost Tromethamine 250 Mcg/1 Ml Amp) 250 mcg IM ASDIRECTED PRN PRN Reason: Excessive vaginal bleeding Diphenhydramine HCl (Diphenhydramine 50 Mg/Ml Sdv) 25 mg IVPUSH Q6H PRN PRN Reason: Itching or Nausea Docusate Sodium (Docusate Sodium 100 Mg Cap) 100 mg PO Q12H PRN PRN Reason: Constipation Last Admin: 01/22/21 20:19 Dose: 100 mg Documented by: Ephedrine Sulfate (Ephedrine 50 Mg/Ml Sdv) 5 mg IVPUSH Q5M PRN PRN Reason: See Label Comments Ferrous Sulfate (Ferrous Sulfate 325 Mg Tab) 325 mg PO BIDMEALS JEM[facility] Last Admin: 01/23/21 08:56 Dose: 325 mg Documented by: Oxytocin/Sodium Chloride (Pitocin In Ns 30 Unit/500 Ml) 30 unit in 500 mls @ 2 mls/hr IV TITRATE [facility]; Protocol Last Titration: 01/20/21 14:10 Dose: 0 munits/min, 0 mls/hr Documented by: Tranexamic Acid 1,000 mg/ (Sodium Chloride) 110 mls @ 660 mls/hr IV ONETIME PRN PRN Reason: Bleeding Remdesivir 100 mg/ Sodium (Chloride) 100 mls @ 100 mls/hr IV Q24H [facility] Stop: 01/26/21 09:59 Last Infusion: 01/23/21 10:40 Dose: Infused Documented by: Labetalol HCl (Labetalol 100 Mg Tab) 200 mg PO BID [facility] Last Admin: 01/23/21 08:55 Dose: 200 mg Documented by: Lidocaine HCl (Lidocaine 1% 30 Ml Sdv) 30 ml INJECT ASDIRECTED PRN PRN Reason: Perineal Repair Methylergonovine Maleate (Methylergonovine 0.2 Mg Tab) 0.2 mg PO ONETIME PRN PRN Reason: Excessive vaginal bleeding Metronidazole (Metronidazole 250 Mg Tab) 500 mg PO Q12HR [facility] Last Admin: 01/23/21 08:56 Dose: 500 mg Documented by: Misoprostol (Misoprostol 400 Mcg (4 X 100 Mcg Tab)) 800 mcg RECTAL ASDIRECTED PRN PRN Reason: Hemorrhage Nalbuphine HCl (Nalbuphine 10 Mg/1 Ml Vial) 20 mg IM ONETIME PRN PRN Reason: Pain Naloxone HCl (Naloxone 2 Mg/2 Ml Syringe) 0.1 mg IVPUSH SEECOMMENT PRN PRN Reason: Respiratory Depression Nicotine (Nicotine 14 Mg/24 Hr Patch) 14 mg TRDERM DAILY [facility] Last Admin: 01/23/21 08:56 Dose: Not Given Documented by: Ondansetron HCl (Ondansetron 4 Mg/2 Ml Sdv) 4 mg IVPUSH Q4H PRN PRN Reason: Nausea/Vomiting Oxycodone/Acetaminophen (Acetaminophen/Oxycodone 325-5 Mg Tab) 1 tab PO Q4H PRN PRN Reason: Pain (moderate 4-6) Last Admin: 01/21/21 16:55 Dose: 1 tab Documented by: Oxycodone/Acetaminophen (Acetaminophen/Oxycodone 325-5 Mg Tab) 2 tab PO Q4H PRN PRN Reason: Pain (moderate 4-6) Last Admin: 01/23/21 08:58 Dose: 2 tab Documented by: Oxytocin (Oxytocin 10 Units/1 Ml Sdv) 10 unit IM ONETIME PRN PRN Reason: Excessive vaginal bleeding Prenat Multivit/[place]/Iron/Folic Ac ( Multivitamin With Calcium/Folic Acid/Iron Tab) 1 each PO DAILY [facility] Last Admin: 01/23/21 08:56 Dose: 1 each Documented by: Promethazine HCl (Promethazine 25 Mg/Ml Sdv) 12.5 mg IM Q6H PRN PRN Reason: Nausea/Vomiting Promethazine HCl/Codeine (Codeine/Promethazine 10-6.25 Mg/5 Ml Syrup 5 Ml Ud Cup) 5 ml PO Q6HR PRN PRN Reason: Cough Last Admin: 01/23/21 04:01 Dose: 5 ml Documented by: Simethicone (Simethicone 80 Mg Tab.Chew) 160 mg PO QID JEMAL Last Admin: 01/23/21 08:55 Dose: 160 mg Documented by: Sodium Chloride (Sodium Chloride 0.9% 10 Ml Syringe) 10 ml FLUSH ASDIRECTED PRN PRN Reason: Keep Vein Open Discontinued Medications Acetaminophen (Acetaminophen 325 Mg Tab) 650 mg PO Q4H PRN PRN Reason: Pain/Fever Last Admin: 01/20/21 00:43 Dose: 650 mg Documented by: Azithromycin (Azithromycin 250 Mg Tab) 1,000 mg PO ONETIME ONE Stop: 01/21/21 14:58 Last Admin: 01/21/21 16:54 Dose: 1,000 mg Documented by: Citric Acid/Sodium Citrate (Citric Acid/Sodium Citrate Solution 30 Ml Cup) 30 ml PO ONETIME ONE Stop: 01/20/21 09:58 Last Admin: 01/20/21 11:33 Dose: Not Given Documented by: Dexamethasone (Dexamethasone 4 Mg/Ml Sdv) 8 mg IV .STK-MED ONE Stop: 01/20/21 11:01 Ephedrine Sulfate (Ephedrine 50 Mg/Ml Sdv) 25 mg IV .STK-MED ONE Stop: 01/20/21 11:01 Fentanyl (Fentanyl 100 Mcg/2 Ml Sdv) 100 mcg IV .STK-MED ONE Stop: 01/20/21 11:01 Hydralazine HCl (Hydralazine 20 Mg/Ml Sdv) Confirm Administered Dose 20 mg .ROUTE .STK-MED ONE Stop: 01/20/21 06:21 Last Admin: 01/20/21 06:42 Dose: Not Given Documented by: Hydralazine HCl (Hydralazine 20 Mg/Ml Sdv) 5 mg IVPUSH ONETIME ONE Stop: 01/20/21 06:24 Last Admin: 01/20/21 06:25 Dose: 5 mg Documented by: Magnesium Sulfate 4 gm/ Premix 100 mls @ 300 mls/hr IV BOLUS ONE Stop: 01/19/21 16:34 Last Admin: 01/19/21 16:46 Dose: 300 mls/hr Documented by: Magnesium Sulfate (Magnesium Sulfate In Water 20 Gm/500 Ml) 20 gm in 500 mls @ 50 mls/hr IV ASDIRECTED [facility] Last Admin: 01/21/21 07:07 Dose: 50 mls/hr Documented by: Lactated Ringer's (Ringers, Lactated) 500 mls @ 999 mls/hr IV SEECOMMENT J[facility] Lactated Ringer's (Ringers, Lactated) 500 mls @ 999 mls/hr IV .BOLUS J[facility]AL Lactated Ringer's (Ringers, Lactated) 1,000 mls @ 125 mls/hr IV ASDIRECTED [facility] Last Admin: 01/20/21 15:58 Dose: 125 mls/hr Documented by: Penicillin G Potassium 3 (millunits/ Sodium Chloride) 100 mls @ 200 mls/hr IV Q4H J[facility] Penicillin G Potassium 5 (millunits/ Sodium Chloride) 100 mls @ 200 mls/hr IV ONETIME ONE Stop: 01/20/21 09:29 Last Admin: 01/20/21 09:26 Dose: 200 mls/hr Documented by: Cefazolin Sodium/Dextrose (Ancef 2 Gm/50 Ml) Confirm Administered Dose 50 mls @ as directed .ROUTE .STK-MED ONE Stop: 01/20/21 09:48 Oxytocin/Sodium Chloride (Pitocin In Ns 30 Unit/500 Ml) Confirm Administered Dose 60 unit in 1,000 mls @ as directed .ROUTE .STK-MED ONE Stop: 01/20/21 09:48 Lactated Ringer's (Ringers, Lactated) 1,000 mls @ 500 mls/hr IV .BOLUS JEMAL Cefazolin Sodium/Dextrose 2 gm (/ Premix) 50 mls @ 100 mls/hr IV ONETIME ONE Stop: 01/20/21 11:29 Last Admin: 01/20/21 10:15 Dose: 100 mls/hr Documented by: Tranexamic Acid 1,000 mg/ (Sodium Chloride) 110 mls @ as directed IV .STK-MED ONE Stop: 01/20/21 11:01 Lactated Ringer's (Ringers, Lactated) 1,000 mls @ as directed IV .STK-MED ONE Stop: 01/20/21 11:01 Oxytocin/Sodium Chloride (Pitocin In Ns 30 Unit/500 Ml) 30 unit in 500 mls @ as directed IV .STK-MED ONE Stop: 01/21/21 12:26 Remdesivir 200 mg/ Sodium (Chloride) 250 mls @ 250 mls/hr IV ONETIME ONE Stop: 01/22/21 14:59 Last Infusion: 01/22/21 16:40 Dose: Infused Documented by: Ketorolac Tromethamine (Ketorolac 30 Mg/Ml Sdv) 15 mg IVPUSH Q6H J[facility] Stop: 01/21/21 05:31 Last Admin: 01/21/21 05:49 Dose: 15 mg Documented by: Labetalol HCl (Labetalol 20 Mg/4 Ml Syringe) 10 mg IVPUSH ONETIME ONE Stop: 01/19/21 16:14 Last Admin: 01/19/21 17:24 Dose: Not Given Documented by: Labetalol HCl (Labetalol 20 Mg/4 Ml Syringe) 10 mg IVPUSH ONETIME ONE Stop: 01/19/21 16:16 Last Admin: 01/19/21 16:37 Dose: 10 mg Documented by: Labetalol HCl (Labetalol 20 Mg/4 Ml Syringe) 0 mg IV ASDIRECTED PRN PRN Reason: HIGH BLOOD PRESSURE Last Admin: 01/20/21 05:36 Dose: 20 mg Documented by: Labetalol HCl (Labetalol 20 Mg/4 Ml Syringe) 40 mg IVPUSH ONETIME ONE Stop: 01/20/21 07:10 Last Admin: 01/20/21 07:18 Dose: 40 mg Documented by: Labetalol HCl (Labetalol 100 Mg Tab) 200 mg PO TID [facility] Last Admin: 01/20/21 08:38 Dose: 200 mg Documented by: Labetalol HCl (Labetalol 100 Mg Tab) 200 mg PO TID [facility] Last Admin: 01/21/21 15:10 Dose: Not Given Documented by: Labetalol HCl (Labetalol 100 Mg Tab) 200 mg PO ONETIME ONE Stop: 01/22/21 04:28 Last Admin: 01/22/21 04:32 Dose: 200 mg Documented by: Measles/Mumps/Rubella Vaccine Live (Measles, Mumps & Rubella Vaccine 0.5 Ml Sdv) 0.5 ml SUBCUT .ONCE ONE Stop: 01/21/21 09:44 Last Admin: 01/21/21 12:24 Dose: 0.5 ml Documented by: Misoprostol (Misoprostol 25 Mcg (1/4 Of 100 Mcg) Tab) 25 mcg VAG ONETIME ONE Stop: 01/19/21 18:50 Last Admin: 01/19/21 19:47 Dose: 25 mcg Documented by: Misoprostol (Misoprostol 25 Mcg (1/4 Of 100 Mcg) Tab) 25 mcg VAG Q4H PRN PRN Reason: Other Last Admin: 01/20/21 03:50 Dose: 25 mcg Documented by: Morphine Sulfate (Morphine Pf 10 Mg/10 Ml Sdv) 0.2 mg .XX .STK-MED ONE Stop: 01/20/21 11:01 Naloxone HCl (Naloxone 2 Mg/2 Ml Syringe) 0.1 mg IVPUSH SEECOMMENT PRN PRN Reason: Respiratory Depression Ondansetron HCl (Ondansetron 4 Mg/2 Ml Sdv) 4 mg IV .STK-MED ONE Stop: 01/20/21 11:01
[2021-01-23 14:06] VITALS: BP 145/95; PULSE 85
== END 2021-01-23 16:45 | disposition home or self-care (01) | DRG 786 ==
LOC: DL.OBCHECK 15:30 → DL.OB 16:10 → EEVIPCON 16:10 → UNDOADMIN 16:17 → DL.OB 16:17 → DL.MS 01-22 14:39
PROVIDERS: ADMIT Family Medicine; ATTEND Family Medicine
PROC: 10D00Z1 Extraction of Products of Conception, Low, Open Approach (ICD-10-PCS; principal; 2021-01-19)
PROC: XW033E5 Introduction of Remdesivir Anti-infective into Peripheral Vein, Percutaneous Approach, New Technology Group 5 (ICD-10-PCS; 2021-01-19)
DX: O14.14 Severe pre-eclampsia complicating childbirth (principal); U07.1 COVID-19; O98.52 Other viral diseases complicating childbirth; O99.324 Drug use complicating childbirth; F15.90 Other stimulant use, unspecified, uncomplicated; F12.90 Cannabis use, unspecified, uncomplicated; Z79.899 Other long term (current) drug therapy; Z3A.38 38 weeks gestation of pregnancy; Z37.0 Single live birth
CPT/HCPCS: 01961; 36415; 51702; 80053; 80305-QW; 81003; 82248; 82565; 82570; 83615; 83735; 84156; 84450; 84460; 84520; 84550; 85027; 86592; 86762; 86803; 86850; 86900; 86901; 86920; 86922; 87081; 87340; 87389; 87491; 87591; 90707; A9270-GY; J0360; J0690; J1100; J1885; J2270; J2405; J2540; J2590; J3010; J3475; J3490; J7050; J7120; U0002

== ENCOUNTER 2021-01-31 14:34 | Inpatient (IN) | payer MEDICAID ==
[2021-01-31] MEDS ORDERED: diphenhydrAMINE 50 MG/ML SDV IVPUSH ONE ×2 (15:06→19:00)
[2021-01-31] MEDS ORDERED: Sodium Chloride 0.9% 10 ML Syringe FLUSH PRN (15:07)
[2021-01-31] MEDS ORDERED: Sodium Chloride 0.9% 1,000 ML IV ONE ×2 (15:13→17:27)
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
[2021-01-31 16:11] LABS: ANION GAP 17.1 mEq/L (7-13); CHLORIDE,CL 107 mmol/L (98-107); SODIUM,NA 144 mmol/L (136-145)
[2021-01-31 17:15] LABS: AMPHETAMINES,URINE POSITIVE (NEGATIVE); BARBITURATES,URINE NEGATIVE (NEGATIVE); BENZODIAZEPINE,URINE NEGATIVE (NEGATIVE); MDMA (ECSTASY), URINE NEGATIVE (NEGATIVE); METHADONE,URINE NEGATIVE (NEGATIVE); METHAMPHETAMINES,URINE POSITIVE (NEGATIVE); OPIATES,URINE NEGATIVE (NEGATIVE); OXYCODONE,URINE NEGATIVE (NEGATIVE); PHENCYCLIDINE,URINE NEGATIVE (NEGATIVE); TCA,URINE NEGATIVE (NEGATIVE)
[2021-01-31] MEDS ORDERED: diphenhydrAMINE 50 MG/ML SDV ONE (19:19)
[2021-01-31] MEDS ORDERED: Magnesium Sulfate/Water 4 GM in Premix Bag 1 BAG IV ONE (20:35)
[2021-01-31] MEDS ORDERED: Calcium Gluconate 10% 1 GM/10 ML SDV IV PRN (20:41)
[2021-01-31] MEDS ORDERED: Acetaminophen 325 MG Tab PO PRN (20:58)
[2021-01-31] MEDS ORDERED: Famotidine 20 MG Tab PO PRN (20:58)
[2021-01-31] MEDS: Magnesium Sulfate/Water 20 GM/500 ML BAG IV SCH (21:27)
[2021-01-31] MEDS: Potassium Chloride 10 MEQ Tab.ER PO SCH (22:03)
[2021-01-31] MEDS: Hydrochlorothiazide 25 MG Tab PO SCH (22:03)
[2021-02-01 05:58] LABS: ANION GAP 13.1 mEq/L (7-13); CHLORIDE,CL 107 mmol/L (98-107); SODIUM,NA 138 mmol/L (136-145)
[2021-02-01] MEDS: Magnesium Sulfate/Water 20 GM/500 ML BAG IV SCH ×2 (07:43→17:55)
[2021-02-01] MEDS: Potassium Chloride 10 MEQ Tab.ER PO SCH ×2 (09:20→21:02)
[2021-02-01] MEDS ORDERED: Hydrochlorothiazide 25 MG Tab PO ONE (09:30)
[2021-02-01] MEDS: diphenhydrAMINE 50 MG Cap PO PRN (09:30)
[2021-02-01] MEDS: Hydrochlorothiazide 25 MG Tab PO SCH (10:05)
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
--- NOTE | 2021-02-01 16:09 | PN ---
"DATE: 02/01/2021 SUBJECTIVE: Anders is resting comfortably this morning. No acute overnight events sine she is here. She is still feeling itchy but this improved with Benadryl. She reports no pain. Anders endorses a mild headache rated 3/10 which she said is getting better since she ate breakfast. Nursing reports the patient is unsteady on her feet requiring assistance for ambulation to bathroom. OBJECTIVE: VITALS: HR:76 | BP 140/90 | RR 20 | O2sat. 97% on room air. GENERAL: No acute distress, cooperative. SKIN: No hives or rash appreciated. Scattered excoriations as prior. HEENT: No angioedmea of lips or oral mucosa. NECK: Supple without lymphadenopathy. CARDIOVASCULAR: Regular rate and rhythm without murmur or rub. PULMONARY: Lungs clear to auscultation bilaterally. ABDOMEN: Soft, nontender to palpation, nondistended. MUSCULOSKELETAL: Joints atraumatic. No extremity edema. PSYCHIATRIC: Appropriate mood and affect. NEUROLOGIC: Deep tendon reflexes reduced. No clonus. LABS: Basic metabolic panel this morning shows resolution of hypokalemia with a potassium of 4.1. Magnesium within therapeutic range at 6.4. ASSESSMENT AND PLAN: 1. Preeclampsia in period. Magnesium is within therapeutic range. We will complete 24-hour protocol this evening. Due to persistently elevated blood pressures, even while somnolent with Benadryl on board, we increased morning hydrochlorothiazide to 25 mg. The patient is voiding appropriately and urine is no longer concentrated or cloudy. 2. Hypokalemia. This is resolved. Potassium is 4.1 today. 3. Allergic reaction. Patient requiring Benadryl less frequently before pruritus resumed. However, still questioning if true allergic reaction to labetalol versus Methamphetamines versus hepatobiliary dysfunction. Labetalol has very rarely been identified to cause generalized pruritus and the patient tolerated this drug while admitted for peripartum preeclampsia. We did obtain a specimen for bile acid quantification to assist in this evaluation. Anticipate the patient will be discharged Tuesday morning. [facility] /[id number] [facility]"
[2021-02-01] MEDS ORDERED: Ondansetron 4 MG/2 ML SDV IVPUSH PRN (17:28)
[2021-02-02] MEDS: diphenhydrAMINE 50 MG Cap PO PRN (03:08)
[2021-02-02] MEDS: Potassium Chloride 10 MEQ Tab.ER PO SCH (08:44)
[2021-02-02] MEDS ORDERED: Hydrochlorothiazide 25 MG Tab PO SCH (09:00)
[2021-02-02 12:09] VITALS: PULSE 87
[2021-02-02] MEDS ORDERED: amLODIPine 5 MG Tab PO SCH (12:30)
[2021-02-02 17:01] VITALS: BP 137/89
--- NOTE | 2021-02-04 00:51 | DISCH ---
ADMITTING DIAGNOSES: 1. Pre-eclampsia in . 2. Allergic reaction. 3. Hypokalemia. 4. Urine drug scree positive for methamphetamine. DISCHARGE DIAGNOSES: 1. Pre-eclampsia in . 2. Allergic reaction. 3. Urine drug screen positive for methamphetamine. HISTORY OF PRESENT ILLNESS: Anders is a 26-year-old G3, P1-0-2-1, 10 days from primary low transverse for pre-eclampsia with severe features, concomitant COVID-19 infection, chlamydia, trichomonas, and hepatitis C identified on labs. She presented to the ED with 3 days of itchiness starting in her hands and feet, becoming more severe and diffuse. She reports she stopped taking the labetalol 3 days prior to admission when the itchiness began, thinking it was due to a drug allergy. She denied any illicit drug or alcohol use in the last 2 weeks. In the ED, she received two 50 mg doses of Benadryl IV push 4 hours apart for allergic reaction and given 2 liters of normal saline bolused. CBC, CMP, urine drug screen, and urinalysis obtained in ED, significant findings included elevated platelets of 719,000 hypokalemia with potassium of 3.1 elevated anion gap of 17.1 normal total bilirubin of 0.3 AST and ALT within normal limits elevated alkaline phosphatase of 138. Urine drug screen was positive for methamphetamines, amphetamines, and THC. The patient's story changed to her last drug use was 4 days ago. Upon consultation, provider requested a urine protein-creatinine ratio and specified this must come from a catheterized specimen. After 3 attempts, a catheterized urine specimen was obtained. Protein-creatinine ratio greater than 12,000 and patient was admitted. HOSPITAL COURSE: 1. Pre-eclampsia in the period: Due to elevated protein-creatinine ration and borderline blood pressure, patient was admitted for 24-hour magnesium sulphate therapy for treatment of pre-eclampsia in . Hydrochlorothiazide for management of blood pressure started at 12.5 mg, increased to 25 mg on day 1 of admission for continued elevation in blood pressures. Hypertension was still refractory to treatment, so amlodipine was added on day 2 of admission. The question remains of pre-eclampsia versus chronic proteinuria necessitating future outpatient workup as chart review showed consistent proteinuria greater than 300 on several occasions, both in and out of . 2. Mild hypokalemia at 3.1 identified on ED labs, given 10 mEq of potassium chloride twice daily, and potassium returned to normal on repeat labs. 3. Allergic reaction: The patient presented for generalized pruritus for 3 days, unsure if true allergic reaction to labetalol versus methamphetamine versus hepatobiliary dysfunction. In the ED, patient required Benadryl within 4 hours of first administration due to return of intense pruritus. The patient required less frequent Benadryl for itchiness and bile acid quant sample collected and sent out to definitively rule out biliary etiology. DISCHARGE CONDITION: Good. MEDICATIONS: 1. Hydrochlorothiazide 25 mg daily. 2. Amlodipine 50 mg daily. 3. Sertraline 50 mg daily. 4. Benadryl 50 mg as needed. INSTRUCTIONS: Take medications. Return for headaches that do not improve with tylenol, vision changes, right upper abdominal pain, swelling in feet or hands, or return if diffuse itchiness. FOLLOWUP: posthospital and blood pressure recheck with Dr. Montenegro on TuesdayFebruary 03 at 4 p.m. [facility] /[id number] [facility]
== END 2021-02-02 14:05 | disposition home or self-care (01) | DRG 776 ==
LOC: DL.ED 14:34 → DL.MS 20:45
PROVIDERS: ADMIT Family Medicine; ATTEND Family Medicine
DX: T50.905A Adverse effect of unspecified drugs, medicaments and biological substances, initial encounter (principal); O14.95 Unspecified pre-eclampsia, complicating the puerperium; E87.6 Hypokalemia; Z88.8 Allergy status to other drugs, medicaments and biological substances; F41.9 Anxiety disorder, unspecified; F32.A Depression, unspecified; F32.9 Major depressive disorder, single episode, unspecified; O99.325 Drug use complicating the puerperium; F15.90 Other stimulant use, unspecified, uncomplicated; O9A.23 Injury, poisoning and certain other consequences of external causes complicating the puerperium; L29.9 Pruritus, unspecified; T78.49XA Other allergy, initial encounter; O90.89 Other complications of the puerperium, not elsewhere classified; Z28.82 Immunization not carried out because of caregiver refusal; Z88.6 Allergy status to analgesic agent; Z79.899 Other long term (current) drug therapy
CPT/HCPCS: 36415; 80053; 80305; 81001; 82150; 82570; 83690; 83735; 84156; 85025; 86140; J1200 ×2; J7030 ×2; 80048; 82542; 85027; 96365; 96375; 96376; 99284-25; A9270-GY; G0008; J3475; Q0163